=== PATIENT | female | born 1930 | race Caucasian/White ===

== ENCOUNTER 2018-10-31 16:40 | Inpatient (IN) | payer MEDICARE, MEDICAID ==
[~2018-10-31] VITALS: Ht 172.7 cm; Wt 69.9 kg
[2018-10-31 17:19] LABS: BASO % 1 % (0-3); EOS # 0.3 x10^3/uL (0.0-0.7); EOS % 5 % (0-3); HEMATOCRIT 45.9 % (36.0-47.0); HEMOGLOBIN 15.3 g/dL (12.0-15.5); LYMPH # 1.5 x10^3/uL (1.0-4.8); LYMPH % 21 % (24-48); MEAN CORPUSCULAR HEMOGLOBIN 33 pg (25-35); MEAN CORPUSCULAR HGB CONC 33 g/dL (31-37); MEAN CORPUSCULAR VOLUME 100 fL (79-100); MONO # 0.6 x10^3/uL (0.0-1.1); MONO % 8 % (0-9); NEUT # 4.5 x10^3uL (1.8-7.7); NEUT % 65 % (31-73); PLATELET COUNT 181 x10^3/uL (140-400); RED BLOOD COUNT 4.61 x10^6/uL (3.50-5.40); RED CELL DISTRIBUTION WIDTH 14.2 % (11.5-14.5); WHITE BLOOD COUNT 6.9 x10^3/uL (4.0-11.0)
[2018-10-31 17:36] LABS: ALBUMIN 4.2 g/dL (3.4-5.0); ALBUMIN/GLOBULIN RATIO 1.4 (1.0-1.7); CALCIUM 9.3 mg/dL (8.5-10.1); CREATININE 1.2 mg/dL (0.6-1.0); GFR 42.6; POTASSIUM 4.4 mmol/L (3.5-5.1); TOTAL BILIRUBIN 0.9 mg/dL (0.2-1.0); TOTAL PROTEIN 7.3 g/dL (6.4-8.2)
[2018-10-31 17:46] LABS: CLARITY,URINE HAZY; COLOR,URINE AMBER
[2018-10-31 17:47] LABS: BACTERIA,URINE 0 /HPF (0-FEW); BILIRUBIN,URINE NEG (NEG); GLUCOSE,URINE NEG (NEG); NITRITE,URINE NEG (NEG); RBC,URINE 0 /HPF (0-2); SQUAMOUS EPITHELIAL CELL,UR OCC /LPF; UROBILINOGEN,URINE 0.2 mg/dL (0.2 mg/dL); WBC,URINE 0 /HPF (0-4)
--- NOTE | 2018-10-31 18:05 | PHYS DOC ---
Past History Past Medical History: Anxiety, CHF, COPD, CVA, Hypertension, Other Past Surgical History: Other Alcohol Use: None Drug Use: None Adult General Chief Complaint Chief Complaint: PSYCH EVALUATION HPI HPI Patient is a 87 year old female who presents to the emergency department for medical clearance. The patient was brought to the emergency department by an outside assisted facility after being accepted to the [facility] unit. Per protocol, the patient presents here to the emergency department to receive the medical clearance prior to admission. Patient reportedly has had suicidal ideation and frequent outbursts at her current having situation. No reported fever. Does have history of anxiety. Patient does voice suicidal ideation in the emergency department. Denies any chest pain, shortness of breath, no or any other symptoms. Patient has had history of prior CVA and is bedridden. Review of Systems Review of Systems Constitutional: Denies fever or chills [] Eyes: Denies change in visual acuity, redness, or eye pain [] HENT: Denies nasal congestion or sore throat [] Respiratory: Denies cough or shortness of breath [] Cardiovascular: Denies chest pain or edema[] GI: Denies abdominal pain, nausea, vomiting, bloody stools or diarrhea [] : Denies dysuria or hematuria [] Musculoskeletal: Denies back pain or joint pain [] Integument: Denies rash or skin lesions [] Neurologic: Denies headache, focal weakness or sensory changes [] All other systems were reviewed and found to be within normal limits, except as documented in this note. Allergies Allergies Allergies Coded Allergies Type Severity Reaction Last Updated Verified amoxicillin Allergy Unknown 10/31/18 Yes clavulanic acid Allergy Unknown 10/31/18 Yes tetracycline Allergy Unknown 10/31/18 Yes Physical Exam Physical Exam Constitutional: Agitated, afebrile, vital signs stable, appears in chronically poor health. [] HENT: Normocephalic, atraumatic, bilateral external ears normal, oropharynx moist, no oral exudates, nose normal. [] Eyes: PERRLA, EOMI, conjunctiva normal, no discharge. [] Neck: Normal range of motion, no tenderness, supple, no stridor. [] Cardiovascular: Irregular rhythm, no murmur [] Lungs & Thorax: Bilateral breath sounds clear to auscultation [] Abdomen: Bowel sounds normal, soft, no tenderness, no masses, no pulsatile masses. [] Skin: Warm, dry, no erythema, no rash. [] Back: No tenderness, no CVA tenderness. [] Extremities: No tenderness, no cyanosis, no clubbing, ROM intact, no edema. [] Neurologic: Alert and oriented X 3, agitated. [] Current Patient Data Vital Signs Vital Signs Date Time Temp Pulse Resp B/P (MAP) Pulse Ox O2 Delivery O2 Flow Rate FiO2 10/31/18 16:53 97.9 102 18 95 Room Air Lab Results Laboratory Tests Test 10/31/18 17:09 10/31/18 17:23 White Blood Count 6.9 x10^3/uL (4.0-11.0) Red Blood Count 4.61 x10^6/uL (3.50-5.40) Hemoglobin 15.3 g/dL (12.0-15.5) Hematocrit 45.9 % (36.0-47.0) Mean Corpuscular Volume 100 fL (79-100) Mean Corpuscular Hemoglobin 33 pg (25-35) Mean Corpuscular Hemoglobin Concent 33 g/dL (31-37) Red Cell Distribution Width 14.2 % (11.5-14.5) Platelet Count 181 x10^3/uL (140-400) Neutrophils (%) (Auto) 65 % (31-73) Lymphocytes (%) (Auto) 21 % (24-48) L Monocytes (%) (Auto) 8 % (0-9) Eosinophils (%) (Auto) 5 % (0-3) H Basophils (%) (Auto) 1 % (0-3) Neutrophils # (Auto) 4.5 x10^3uL (1.8-7.7) Lymphocytes # (Auto) 1.5 x10^3/uL (1.0-4.8) Monocytes # (Auto) 0.6 x10^3/uL (0.0-1.1) Eosinophils # (Auto) 0.3 x10^3/uL (0.0-0.7) Basophils # (Auto) 0.0 x10^3/uL (0.0-0.2) Sodium Level 141 mmol/L (136-145) Potassium Level 4.4 mmol/L (3.5-5.1) Chloride Level 103 mmol/L (98-107) Carbon Dioxide Level 26 mmol/L (21-32) Anion Gap 12 (6-14) Blood Urea Nitrogen 21 mg/dL (7-20) H Creatinine 1.2 mg/dL (0.6-1.0) H Estimated GFR (Cockcroft-Gault) 42.6 BUN/Creatinine Ratio 18 (6-20) Glucose Level 93 mg/dL (70-99) Calcium Level 9.3 mg/dL (8.5-10.1) Magnesium Level 2.0 mg/dL (1.8-2.4) Total Bilirubin 0.9 mg/dL (0.2-1.0) Aspartate Amino Transferase (AST) 15 U/L (15-37) Alanine Aminotransferase (ALT) 20 U/L (14-59) Alkaline Phosphatase 71 U/L (46-116) Total Protein 7.3 g/dL (6.4-8.2) Albumin 4.2 g/dL (3.4-5.0) Albumin/Globulin Ratio 1.4 (1.0-1.7) Urine Collection Type Unknown Urine Color Kathleen Urine Clarity Hazy Urine pH 5.5 Urine Specific [place] 1.025 Urine Protein Trace (NEG-TRACE) Urine Glucose (UA) Neg mg/dL (NEG) Urine Ketones (Stick) Neg mg/dL (NEG) Urine Blood Neg (NEG) Urine Nitrite Neg (NEG) Urine Bilirubin Neg (NEG) Urine Urobilinogen Dipstick 0.2 mg/dL (0.2 mg/dL) Urine Leukocyte Esterase Neg (NEG) Urine RBC 0 /HPF (0-2) Urine WBC 0 /HPF (0-4) Urine Squamous Epithelial Cells Occ /LPF Urine Bacteria 0 /HPF (0-FEW) EKG EKG Interpreted by me: Heart rate 99, atrial fibrillation, normal axis, no acute ST/T-wave abnormalities present[] Radiology/Procedures Radiology/Procedures Not performed[] Course & Med Decision Making Course & Med Decision Making Pertinent Labs and Imaging studies reviewed. (See chart for details) Vital signs are stable in the emergency department. The patient was found to have atrial fibrillation. This is not documented in previous history. I spoke with Dr. Chandler, hospitalist. He states that the patient can be evaluated and treated while still being admitted at the [facility] unit. He has agreed to follow with patient in consult for evaluation of atrial fibrillation. Patient has no other complaints at this time. Patient will be transferred to the [facility] unit for further care. Dragon Disclaimer Dragon Disclaimer This electronic medical record was generated, in whole or in part, using a voice recognition dictation system. Departure Departure: Impression: Primary Impression: Medical clearance for psychiatric admission Additional Impression: Atrial fibrillation Disposition: ADMITTED INPATIENT Admitting Physician: Other Condition: STABLE Referrals: MAMADOU HENDERSON (PCP) Problem Qualifiers Additional Impression: Atrial fibrillation Atrial fibrillation type: unspecified Qualified Codes: I48.91 - Unspecified atrial fibrillation SULEIMAN ALLEN MD October 31, 2018 18:05
[2018-10-31 18:41] VITALS: BP 137/95
[2018-10-31] MEDS ORDERED: ACETAMINOPHEN 325 MG TABLET PO PRN (19:15)
[2018-10-31] MEDS ORDERED: METHYL SALICYLATE/MENTHOL TOPICAL OINTMENT 29GM TUBE. TP PRN (19:15)
[2018-10-31] MEDS ORDERED: MAG HYDROX/AL HYDROX/SIMETH 30 ML ORAL.SUSP PO PRN (19:15)
[2018-10-31] MEDS ORDERED: MAGNESIUM HYDROXIDE 2,400 MG/30 ML ORAL.SUSP. PO PRN (19:15)
[2018-10-31] MEDS ORDERED: SODI104S NS (20:42)
[2018-10-31] MEDS ORDERED: CHOL500016 PO (20:42)
[2018-10-31] MEDS ORDERED: LORA-254 PO (20:42)
[2018-10-31] MEDS ORDERED: QUET50TA5 PO (20:42)
[2018-10-31] MEDS ORDERED: OMEP20TA8 PO (20:42)
[2018-10-31] MEDS ORDERED: LORA2VIA IM (20:42)
[2018-10-31] MEDS ORDERED: WARF4TAB68 PO (20:42)
[2018-10-31] MEDS ORDERED: GUAI5SYR PO (20:42)
[2018-10-31] MEDS ORDERED: SENN-80 PO (20:42)
[2018-10-31] MEDS ORDERED: NA P133E2 RC (20:42)
[2018-10-31] MEDS ORDERED: DONE10TA61 PO (20:42)
[2018-10-31] MEDS ORDERED: ASPI-612 PO (20:42)
[2018-10-31] MEDS ORDERED: CITA20TA9 PO (20:42)
[2018-10-31] MEDS ORDERED: LEVE100020 PO (20:42)
[2018-10-31] MEDS ORDERED: BUSP5TAB PO (20:42)
[2018-10-31] MEDS ORDERED: MELA3TAB2 PO (20:42)
[2018-10-31] MEDS ORDERED: ALBU2.5V5 NEB (20:42)
[2018-10-31] MEDS ORDERED: QUET100T4 PO (20:42)
[2018-10-31] MEDS ORDERED: NITR0.4T22 SL (20:42)
[2018-10-31] MEDS ORDERED: CARV3.12 PO (20:42)
[2018-10-31] MEDS ORDERED: ZONI100C33 PO (20:42)
[2018-10-31] MEDS ORDERED: SIMV20TA3 PO (20:42)
[2018-10-31] MEDS ORDERED: NITROGLYCERIN SUBLINGUAL 0.4 MG BOTTLE OF 25. SL PRN (20:45)
[2018-10-31] MEDS ORDERED: ALBUTEROL SULFATE 2.5 MG/3 ML NEBU. NEB PRN (20:45)
[2018-10-31] MEDS ORDERED: SODIUM PHOSPHATES 19/7GM 133 ML ENEMA. RC PRN (20:45)
[2018-10-31] MEDS ORDERED: WARFARIN SODIUM 4 MG PO SCH (21:00)
[2018-10-31] MEDS ORDERED: guaiFENesin DM 200MG/20MG 10 ML SYRUP PO PRN (21:15)
[2018-10-31] MEDS: QUEtiapine 50 MG TABLET. PO SCH (21:22)
[2018-10-31] MEDS: LORazepam 1 MG TABLET PO SCH (21:23)
[2018-10-31] MEDS: QUEtiapine 100 MG TABLET. PO SCH (21:23)
[2018-10-31] MEDS ORDERED: SENNOSIDES 8.6 MG TABLET PO PRN (21:30)
[2018-10-31] MEDS ORDERED: SODIUM CHLORIDE 0.65% NASAL SPRAY 45ML BOTTLE. NS PRN (21:30)
--- NOTE | 2018-10-31 22:07 | PDOC ---
Exam Note: Tiburcio Note: Please also refer to the separate dictated note~for this date of service dictated separately. Discussed the patient with Nursing staff reviewed the chart.~Reviewed interim history and current functioning. Reviewed vital signs,~Labs/ Radiology~and current medications noted below. Continue current treatment with the changes noted in the dictated addendum note Assessment: Vital Signs: Vital Signs Date Time Temp Pulse Resp B/P (MAP) Pulse Ox O2 Delivery O2 Flow Rate FiO2 10/31/18 18:41 97.0 92 20 137/95 (109) 97 10/31/18 18:07 Room Air Labs: Laboratory Tests Test 10/31/18 17:09 10/31/18 17:23 White Blood Count 6.9 x10^3/uL (4.0-11.0) Red Blood Count 4.61 x10^6/uL (3.50-5.40) Hemoglobin 15.3 g/dL (12.0-15.5) Hematocrit 45.9 % (36.0-47.0) Mean Corpuscular Volume 100 fL (79-100) Mean Corpuscular Hemoglobin 33 pg (25-35) Mean Corpuscular Hemoglobin Concent 33 g/dL (31-37) Red Cell Distribution Width 14.2 % (11.5-14.5) Platelet Count 181 x10^3/uL (140-400) Neutrophils (%) (Auto) 65 % (31-73) Lymphocytes (%) (Auto) 21 % (24-48) L Monocytes (%) (Auto) 8 % (0-9) Eosinophils (%) (Auto) 5 % (0-3) H Basophils (%) (Auto) 1 % (0-3) Neutrophils # (Auto) 4.5 x10^3uL (1.8-7.7) Lymphocytes # (Auto) 1.5 x10^3/uL (1.0-4.8) Monocytes # (Auto) 0.6 x10^3/uL (0.0-1.1) Eosinophils # (Auto) 0.3 x10^3/uL (0.0-0.7) Basophils # (Auto) 0.0 x10^3/uL (0.0-0.2) Sodium Level 141 mmol/L (136-145) Potassium Level 4.4 mmol/L (3.5-5.1) Chloride Level 103 mmol/L (98-107) Carbon Dioxide Level 26 mmol/L (21-32) Anion Gap 12 (6-14) Blood Urea Nitrogen 21 mg/dL (7-20) H Creatinine 1.2 mg/dL (0.6-1.0) H Estimated GFR (Cockcroft-Gault) 42.6 BUN/Creatinine Ratio 18 (6-20) Glucose Level 93 mg/dL (70-99) Calcium Level 9.3 mg/dL (8.5-10.1) Magnesium Level 2.0 mg/dL (1.8-2.4) Total Bilirubin 0.9 mg/dL (0.2-1.0) Aspartate Amino Transferase (AST) 15 U/L (15-37) Alanine Aminotransferase (ALT) 20 U/L (14-59) Alkaline Phosphatase 71 U/L (46-116) Total Protein 7.3 g/dL (6.4-8.2) Albumin 4.2 g/dL (3.4-5.0) Albumin/Globulin Ratio 1.4 (1.0-1.7) Urine Collection Type Unknown Urine Color Kathleen Urine Clarity Hazy Urine pH 5.5 Urine Specific [place] 1.025 Urine Protein Trace (NEG-TRACE) Urine Glucose (UA) Neg mg/dL (NEG) Urine Ketones (Stick) Neg mg/dL (NEG) Urine Blood Neg (NEG) Urine Nitrite Neg (NEG) Urine Bilirubin Neg (NEG) Urine Urobilinogen Dipstick 0.2 mg/dL (0.2 mg/dL) Urine Leukocyte Esterase Neg (NEG) Urine RBC 0 /HPF (0-2) Urine WBC 0 /HPF (0-4) Urine Squamous Epithelial Cells Occ /LPF Urine Bacteria 0 /HPF (0-FEW) Current Medications: Meds: Current Medications Acetaminophen (Tylenol) 650 mg PRN Q6HRS PRN PO PAIN / TEMP; Start 10/31/18 at 19:15 Multi-Ingredient Ointment (Analgesic [place]) 1 lynsey PRN QID PRN TP MUSCLE PAIN; Start 10/31/18 at 19:15 Al Hydroxide/Mg Hydroxide (Mylanta Plus Xs) 15 ml PRN AFTMEALHC PRN PO DYSPEPSIA; Start 10/31/18 at 19:15 Magnesium Hydroxide (Milk Of Magnesia) 2,400 mg PRN QHS PRN PO CONSTIPATION; Start 10/31/18 at 19:15 Citalopram Hydrobromide (CeleXA) 20 mg DAILY PO ; Start 11/01/18 at 09:00 Lorazepam (Ativan) 1 mg TID PO Last administered on 10/31/18at 21:23; Start 10/31/18 at 21:00 Buspirone HCl (Buspar) 5 mg BID PO ; Start 11/01/18 at 09:00 Donepezil HCl (Aricept) 10 mg DAILY PO ; Start 11/01/18 at 09:00 Melatonin 6 mg QHS PO ; Start 11/01/18 at 21:00 Quetiapine Fumarate (SEROquel) 50 mg QHS PO Last administered on 10/31/18at 21:22; Start 10/31/18 at 21:00 Quetiapine Fumarate (SEROquel) 100 mg QHS PO Last administered on 10/31/18at 21:23; Start 10/31/18 at 21:00 Albuterol Sulfate (Ventolin) 2.5 mg PRN Q6HRS PRN NEB SHORTNESS OF BREATH; Start 10/31/18 at 20:45 Guaifenesin (Robitussin Dm) 10 ml PRN Q4HRS PRN PO COUGH; Start 10/31/18 at 21:15 Sodium Biphosphate/ Sodium Phosphate (Fleet Adult) 133 ml PRN DAILY PRN RC CONSTIPATION; Start 10/31/18 at 20:45 Nitroglycerin (Nitrostat) 0.4 mg PRN Q5MIN PRN SL CHEST PAIN; Start 10/31/18 at 20:45 Aspirin (Aspirin Enteric Coated) 81 mg DAILYWBKFT PO ; Start 11/01/18 at 08:00 Carvedilol (Coreg) 3.125 mg BIDWMEALS PO ; Start 11/01/18 at 08:00 Vitamin D (Vitamin D3) 5,000 unit DAILY PO ; Start 11/01/18 at 09:00 Levetiracetam (Keppra) 1,000 mg BID PO ; Start 11/01/18 at 09:00 Pantoprazole Sodium (Protonix) 40 mg DAILYAC PO ; Start 11/01/18 at 07:30 Sennosides (Senna) 8.6 mg PRN BID PRN PO CONSTIPATION; Start 10/31/18 at 21:30 Simvastatin (Zocor) 20 mg DAILY PO ; Start 11/01/18 at 09:00 Sodium Chloride (Saline Mist Nasal) 1 lynsey PRN Q6HRS PRN NS NASAL CONGESTION; Start 10/31/18 at 21:30 Non-Formulary Medication (Warfarin Sodium (Coumadin)) 4 mg HS PO ; Start 10/31/18 at 21:00; Status UNV Zonisamide (Zonegran) 100 mg DAILY PO ; Start 11/01/18 at 09:00 Active Scripts Active Reported Zonegran (Zonisamide) 100 Mg Capsule 100 Mg PO DAILY Vitamin D3 (Cholecalciferol (Vitamin D3)) 5,000 Unit Tablet 5,000 Unit PO DAILY Simvastatin 20 Mg Tablet 20 Mg PO DAILY Seroquel (Quetiapine Fumarate) 50 Mg Tablet 50 Mg PO QHS Seroquel (Quetiapine Fumarate) 100 Mg Tablet 100 Mg PO QHS Senna (Sennosides) 8.6 Mg Tablet 8.6 Mg PO PRN Q12HR PRN Omeprazole 20 Mg Tablet.dr 20 Mg PO DAILY [place] (Sodium Chloride) 104 Ml [place] 2 Sprays NS PRN Q6HRS PRN NITROGLYCERIN SubLingual (Nitroglycerin) 0.4 Mg Tab.subl 0.4 Mg SL PRN Q5MIN PRN Melatonin 3 Mg Tablet 6 Mg PO QHS Ativan (Lorazepam) 1 Mg Tablet 1 Mg PO TID Keppra (Levetiracetam) 1,000 Mg Tablet 1,000 Mg PO BID Guaifenesin Dm Syrup (Guaifenesin/Dextromethorphan) 5 Ml Syrup 10 Ml PO PRN Q4HRS PRN Fleet Enema (Na Phos,M-B/Na Phos,Di-Ba) 133 Ml Enema 133 Ml RC PRN DAILY PRN Coumadin (Warfarin Sodium) 4 Mg Tablet 4 Mg PO HS Coreg (Carvedilol) 3.125 Mg Tablet 3.125 Mg PO BIDWMEALS Celexa (Citalopram Hydrobromide) 20 Mg Tablet 20 Mg PO DAILY Buspirone Hcl 5 Mg Tablet 5 Mg PO BID Lorazepam 2 Mg/1 Ml Vial 0.5 Ml IM DAILY Aspirin Ec (Aspirin) 81 Mg Tablet.dr 81 Mg PO DAILY Albuterol Sulfate Neb Soln (Albuterol Sulfate) 2.5 Mg/3 Ml Vial.neb 2.5 Mg NEB PRN Q6HRS PRN Aricept (Donepezil Hcl) 10 Mg Tablet 10 Mg PO DAILY I have reviewed the current psychotropics carefully including drug interactions. Risk benefit ratio favors no change other than as noted in my dictated progress note. 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
[2018-11-01 05:51] VITALS: BP 107/70
[2018-11-01] MEDS: levETIRAcetam 500 MG TABLET PO SCH ×3 (10:07→21:36)
[2018-11-01] MEDS: CHOLECALCIFEROL (VITAMIN D3) 1,000 UNIT TABLET PO SCH (10:07)
[2018-11-01] MEDS: SIMVASTATIN 20 MG TABLET PO SCH (10:07)
[2018-11-01] MEDS: DONEPEZIL HCL 10 MG TABLET PO SCH (10:07)
[2018-11-01] MEDS: LORazepam 1 MG TABLET PO SCH ×2 (10:08→14:20)
[2018-11-01] MEDS: busPIRone 5 MG TABLET. PO SCH ×3 (10:08→21:36)
[2018-11-01] MEDS: ASPIRIN ENTERIC COATED 81 MG TABLET.DR. PO SCH (10:08)
[2018-11-01] MEDS: PANTOPRAZOLE 40 MG TABLET. PO SCH (10:08)
[2018-11-01] MEDS: CITALOPRAM 20 MG TABLET. PO SCH (10:08)
[2018-11-01] MEDS: ZONISAMIDE 100 MG CAPSULE. PO SCH (10:08)
[2018-11-01] MEDS: CARVEDILOL 3.125 MG TABLET PO SCH ×2 (10:09→17:05)
[2018-11-01] MEDS ORDERED: PRED-220 PO (13:20)
[2018-11-01 15:40] VITALS: BP 133/75
[2018-11-01] MEDS ORDERED: WARFARIN 4 MG TABLET. PO SCH (16:00)
--- NOTE | 2018-11-01 16:53 | HP ---
ADMIT DATE: 10/31/2018 PSYCHIATRIC ADMISSION HISTORY/EVALULTION This late entry 10/31/2018 covers elements not covered in my initial note 10/31/2018. SUBJECTIVE: I met with the patient in the evening of 10/31/2018 shortly after she arrived on the unit. Previously discussed with Aisha Castañeda, nursing program coordinator and nursing staff. IDENTIFYING DATA: The patient is an 87-year-old female, referred to us from [facility] in [place], [place] by Dr. Aguilera, her primary care physician on account of worsening confusion and agitation. She was reportedly delusional about her cheating on her. She is agitated with her and daughters. She is trying to pack and move out. She is refusing all her medications. Several changes in her psychotropics had not made any difference. She was yelling, cursing, agitated, impulsive with active suicidal ideation and threatening to harm herself and extremely emotional. CHIEF COMPLAINT: "I don't know." The patient responded after my initial introductions and as I was asking her orientation questions and questioned her about who the current president was. HISTORY OF PRESENT ILLNESS: The patient has a history of dementia, Alzheimer's vascular type. She has been residing at the above facility for some time, but recently getting increasingly agitated, psychotic, paranoid, impulsive and explosive with suicidal ideation. She has had sleep and appetite changes. No clear history of bipolar disorder or homicidal ideation. PAST PSYCHIATRIC HISTORY: As above. MEDICAL HISTORY: Positive for generalized weakness, hypertension, tremors, repeated falls, COPD, history of syncope, vitamin D deficiency, CHF, status post CVA with hemiplegia, anxiety. ALLERGIES: AUGMENTIN, TETRACYCLINE. ACCU-CHEKS: None. DIET: Regular. Takes medications whole. Ambulates in wheelchair. CODE STATUS: DNR. UA 10/31/2018 was negative. CURRENT PSYCHOTROPICS: Aricept 10 mg a day, BuSpar 5 mg b.i.d., Celexa 20 mg a day, Ativan 1 mg t.i.d., melatonin 6 mg at bedtime, Seroquel 150 mg at bedtime. FAMILY HISTORY: Noncontributory. SOCIAL HISTORY: No history of alcohol, drug abuse, physical, sexual or elder abuse. She is not known to be a perpetrator. MENTAL STATUS EXAMINATION: Oriented to herself. She was lying in bed, Room as I met with her. When I questioned her about her name, she stated "I don't know that. Later, she told me she had arrived on the unit shortly before my visit with her. Speech coherent, rapid at times. Insight, judgment, recent and remote memory, attention, concentration, fund of knowledge poor, consistent with her diagnosis. She is quite paranoid, psychotic, impulsive with marked mood lability. ASSETS: Supportive family, stable living at the residential. WEAKNESS: The patient's dementia, delusion, depression, and agitation. IMPRESSION: Major neurocognitive disorder, Alzheimer, vascular with delusion, depression, behavioral disturbance; anxiety disorder, unspecified; impulse control disorder, unspecified. Rest as above. PLAN: Admit to geropsychiatry unit at [facility]. I will see the patient daily individually from a psychiatric standpoint. Medical followup with Dr. Chandler. Continue the patient on her current psychotropics. Consider tapering the Ativan and adjusting the Seroquel post baseline assessment. ESTIMATED LENGTH OF STAY: 10-12 days. DISPOSITION: Plans back to residential when stable. MAN Stephanie PYLE MD DR: JASMYN/krissy JOB#: [id number] / [id number]
[2018-11-01 19:47] VITALS: BP 128/93
[2018-11-01] MEDS: QUEtiapine 50 MG TABLET. PO SCH ×2 (21:00→21:36)
[2018-11-01] MEDS: MELATONIN 3 MG TABLET PO SCH ×2 (21:00→21:39)
[2018-11-01] MEDS: QUEtiapine 100 MG TABLET. PO SCH ×2 (21:00→21:36)
[2018-11-01] MEDS: LORazepam 0.5 MG TABLET PO SCH (21:39)
--- NOTE | 2018-11-01 22:33 | PDOC ---
Exam Note: Tiburcio Note: Please also refer to the separate dictated note~for this date of service dictated separately.~Patient seen individually. Discussed the patient with Nursing staff reviewed the chart.~Reviewed interim history and current functioning. Reviewed vital signs,~Labs/ Radiology~and current medications noted below. Continue current treatment with the changes noted in the dictated addendum note Assessment: Vital Signs: Vital Signs Date Time Temp Pulse Resp B/P (MAP) Pulse Ox O2 Delivery O2 Flow Rate FiO2 11/01/18 19:47 99.2 93 20 128/93 (105) 96 10/31/18 18:07 Room Air I&O Intake and Output 11/01/18 06:59 Intake Total 60 ml Balance 60 ml Intake Oral 60 ml # Voids 1 Labs: Laboratory Tests Test 11/01/18 13:27 Prothrombin Time 16.0 SEC (9.4-11.4) H Prothrombin Time INR 1.6 (0.9-1.1) H Current Medications: Meds: Current Medications Acetaminophen (Tylenol) 650 mg PRN Q6HRS PRN PO PAIN / TEMP; Start 10/31/18 at 19:15 Multi-Ingredient Ointment (Analgesic [place]) 1 lynsey PRN QID PRN TP MUSCLE PAIN; Start 10/31/18 at 19:15 Al Hydroxide/Mg Hydroxide (Mylanta Plus Xs) 15 ml PRN AFTMEALHC PRN PO DYSPEPSIA; Start 10/31/18 at 19:15 Magnesium Hydroxide (Milk Of Magnesia) 2,400 mg PRN QHS PRN PO CONSTIPATION; Start 10/31/18 at 19:15 Citalopram Hydrobromide (CeleXA) 20 mg DAILY PO Last administered on 11/01/18at 10:08; Start 11/01/18 at 09:00 Lorazepam (Ativan) 1 mg TID PO Last administered on 11/01/18at 10:08; Start 10/31/18 at 21:00; Stop 11/01/18 at 14:25; Status DC Buspirone HCl (Buspar) 5 mg BID PO Last administered on 11/01/18at 10:08; Start 11/01/18 at 09:00 Donepezil HCl (Aricept) 10 mg DAILY PO Last administered on 11/01/18at 10:07; Start 11/01/18 at 09:00 Melatonin 6 mg QHS PO ; Start 11/01/18 at 21:00 Quetiapine Fumarate (SEROquel) 50 mg QHS PO Last administered on 10/31/18at 21:22; Start 10/31/18 at 21:00 Quetiapine Fumarate (SEROquel) 100 mg QHS PO Last administered on 10/31/18at 21:23; Start 10/31/18 at 21:00 Albuterol Sulfate (Ventolin) 2.5 mg PRN Q6HRS PRN NEB SHORTNESS OF BREATH; Start 10/31/18 at 20:45 Guaifenesin (Robitussin Dm) 10 ml PRN Q4HRS PRN PO COUGH; Start 10/31/18 at 21:15 Sodium Biphosphate/ Sodium Phosphate (Fleet Adult) 133 ml PRN DAILY PRN RC CONSTIPATION; Start 10/31/18 at 20:45 Nitroglycerin (Nitrostat) 0.4 mg PRN Q5MIN PRN SL CHEST PAIN; Start 10/31/18 at 20:45 Aspirin (Aspirin Enteric Coated) 81 mg DAILYWBKFT PO Last administered on 11/01/18at 10:08; Start 11/01/18 at 08:00 Carvedilol (Coreg) 3.125 mg BIDWMEALS PO Last administered on 11/01/18 17:05; Start 11/01/18 at 08:00 Vitamin D (Vitamin D3) 5,000 unit DAILY PO Last administered on 11/01/18 10:07; Start 11/01/18 at 09:00 Levetiracetam (Keppra) 1,000 mg BID PO Last administered on 11/01/18 10:07; Start 11/01/18 at 09:00 Pantoprazole Sodium (Protonix) 40 mg DAILYAC PO Last administered on 11/01/18 10:08; Start 11/01/18 at 07:30 Sennosides (Senna) 8.6 mg PRN BID PRN PO CONSTIPATION; Start 10/31/18 at 21:30 Simvastatin (Zocor) 20 mg DAILY PO Last administered on 11/01/18at 10:07; Start 11/01/18 at 09:00 Sodium Chloride (Saline Mist Nasal) 1 lynsey PRN Q6HRS PRN NS NASAL CONGESTION; Start 10/31/18 at 21:30 Non-Formulary Medication (Warfarin Sodium (Coumadin)) 4 mg HS PO ; Start 10/31/18 at 21:00; Stop 11/01/18 at 14:25; Status DC Zonisamide (Zonegran) 100 mg DAILY PO Last administered on 11/01/18at 10:08; Start 11/01/18 at 09:00 Warfarin Sodium (Coumadin Per Physician) 1 each PRN DAILY PRN MC SEE COMMENTS; Start 11/01/18 at 07:15 Olanzapine (ZyPREXA ZYDIS) 2.5 mg PRN Q2HR PRN PO PSYCHOSIS; Start 11/01/18 at 12:00 Lorazepam (Ativan) 1 mg Taper DAILY PO ; Start 11/02/18 at 09:00; Stop 11/22/18 at 08:59 Lorazepam (Ativan) 1 mg Taper DAILY@1400 PO ; Start 11/02/18 at 14:00; Stop 11/22/18 at 13:59 Lorazepam (Ativan) 1 mg Taper QHS PO Last administered on 11/01/18at 21:39; Start 11/01/18 at 21:00; Stop 11/22/18 at 20:59 Warfarin Sodium (Coumadin) 4 mg DAILY@1600 PO Last administered on 11/01/18at 17:04; Start 11/01/18 at 16:00 Lorazepam (Ativan) 0.5 mg TID PO ; Start 11/22/18 at 09:00 Active Scripts Active Reported Prednisone 10 Mg Tablet 10 Mg PO QSA Take 3 tablets by mouth twice a day for 3 days, then take 2 tablets by mouth twice a day for 3 days, then take 1 tablet by mouth twice a day for 3 days, then take 1 tablet by mouth daily x 3 days, then stop. Zonegran (Zonisamide) 100 Mg Capsule 100 Mg PO DAILY Vitamin D3 (Cholecalciferol (Vitamin D3)) 5,000 Unit Tablet 5,000 Unit PO DAILY Simvastatin 20 Mg Tablet 20 Mg PO DAILY Seroquel (Quetiapine Fumarate) 50 Mg Tablet 50 Mg PO QHS Seroquel (Quetiapine Fumarate) 100 Mg Tablet 100 Mg PO QHS Senna (Sennosides) 8.6 Mg Tablet 8.6 Mg PO PRN Q12HR PRN Omeprazole 20 Mg Tablet.dr 20 Mg PO DAILY [place] (Sodium Chloride) 104 Ml [place] 2 Sprays NS PRN Q6HRS PRN NITROGLYCERIN SubLingual (Nitroglycerin) 0.4 Mg Tab.subl 0.4 Mg SL PRN Q5MIN PRN Melatonin 3 Mg Tablet 6 Mg PO QHS Ativan (Lorazepam) 1 Mg Tablet 1 Mg PO TID Keppra (Levetiracetam) 1,000 Mg Tablet 1,000 Mg PO BID Guaifenesin Dm Syrup (Guaifenesin/Dextromethorphan) 5 Ml Syrup 10 Ml PO PRN Q4HRS PRN Fleet Enema (Na Phos,M-B/Na Phos,Di-Ba) 133 Ml Enema 133 Ml RC PRN DAILY PRN Coumadin (Warfarin Sodium) 4 Mg Tablet 4 Mg PO HS Coreg (Carvedilol) 3.125 Mg Tablet 3.125 Mg PO BIDWMEALS Celexa (Citalopram Hydrobromide) 20 Mg Tablet 20 Mg PO DAILY Buspirone Hcl 5 Mg Tablet 5 Mg PO BID Lorazepam 2 Mg/1 Ml Vial 0.5 Ml IM DAILY Aspirin Ec (Aspirin) 81 Mg Tablet.dr 81 Mg PO DAILY Albuterol Sulfate Neb Soln (Albuterol Sulfate) 2.5 Mg/3 Ml Vial.neb 2.5 Mg NEB PRN Q6HRS PRN Aricept (Donepezil Hcl) 10 Mg Tablet 10 Mg PO DAILY I have reviewed the current psychotropics carefully including drug interactions. Risk benefit ratio favors no change other than as noted in my dictated progress note. 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
--- NOTE | 2018-11-02 05:23 | CONS ---
DATE OF CONSULTATION: 11/01/2018 REASON FOR CONSULTATION: Medical management. HISTORY OF PRESENT ILLNESS: The patient is an 87-year-old female patient, a resident at [facility] in [place], [place], who was admitted to this unit on account of worsening confusion, agitation. She was reportedly delusional about her cheating on her. She is agitated with her and daughters. She is trying to back and move out. She is refusing all her medications. Apparently multiple changes in her psychotropic medication were made without making any difference. She was yelling, cursing, agitated, impulsive with active suicidal ideation and threatening to harm herself and extremely emotional, all this in a background of dementia, Alzheimer, vascular type. She was admitted to this unit for inpatient psychiatric stabilization. PAST PSYCHIATRIC HISTORY: Significant for dementia, Alzheimer, vascular type. Has been residing at this facility for some time, but has recently been getting increasingly agitated and psychotic, paranoid, impulsive and explosive with suicidal ideation. PAST MEDICAL HISTORY: Significant for hypertension, tremors, repeated falls, COPD, vitamin D deficiency, congestive heart failure, status post CVA with hemiplegia, anxiety. PAST SURGICAL HISTORY: Unremarkable. ALLERGIES: She is allergic to AUGMENTIN AND TETRACYCLINE. FAMILY HISTORY: Noncontributory. SOCIAL HISTORY: She apparently lives at [facility], together with her . She does not smoke, drink alcohol, or use any recreational drugs. MEDICATIONS: She is currently on following medications: She is on Aricept 10 mg daily, albuterol sulfate 2.5 mg 3 mL vial by nebulizer every 6 hours. She is on Coumadin 4 mg at bedtime, simvastatin 20 mg at bedtime, nitroglycerin 0.4 mg sublingual every 5 minutes x 3. She is on carvedilol 3.125 mg twice a day with meals, aspirin 81 mg once a day, Keppra 1000 mg twice a day, Zonegran 100 mg daily. She is on citalopram hydrobromide, Celexa 20 mg daily, quetiapine fumarate 100 mg at bedtime and Seroquel 50 mg at bedtime. She is on lorazepam 2 mg 1 mL vial intramuscular daily, lorazepam 1 mg tablet 3 times a day, buspirone 5 mg twice a day, guaifenesin dextromethorphan 10 mL every 4 hours as needed, [place] spray 2 sprays to each nostril every 6 hours, Fleet enema rectally p.r.n. daily for constipation. She has senna 1 tablet every 12 hours, omeprazole 20 mg daily, cholecalciferol, prednisone 10 mg daily, ergocalciferol 5000 international units once a day, and melatonin 6 mg at bedtime for insomnia. REVIEW OF SYSTEMS: Unobtainable. PHYSICAL EXAMINATION: GENERAL: When I examined her, she looked pale, but no jaundice, cyanosis, or thyromegaly. No jugular venous distension. No lower limb edema. VITAL SIGNS: Her heart rate was 110, blood pressure 133/75, temperature was 98, respiratory rate was 18, and oxygen saturation was 95%. HEAD, EYES, EARS, NOSE, AND THROAT: Showed normocephalic, atraumatic. NECK: Supple. HEART: Showed normal first and second heart sounds. No gallop, rub or murmur. CHEST: Clear to auscultation. No crepitation or rhonchi. ABDOMEN: Distended, soft, nontender. NEUROLOGIC: She is demented, but without any obvious lateralizing sign. All her cranial nerves intact. She moves upper extremities to much good extent than lower extremities. She is mostly bed bound, wheelchair bound. LABORATORY DATA: Showed a white cell count of 6900, hemoglobin 15, hematocrit 45, MCV 100, and platelet count of 181,000. Her chemistry showed a serum sodium of 141, potassium 4.4, chloride 103, bicarbonate 26, anion gap of 12, BUN 21, creatinine 1.2, estimated GFR was 42 mL per minute. Her glucose was 93, calcium was 9.3, magnesium 2. Serum iron, TIBC and iron saturation of all in the lower side. Her total bilirubin, AST, ALT, alkaline phosphatase were normal. Total protein was 7.3, albumin was 4.2. Her prothrombin time was 16, INR of 1.6. Urinalysis showed the urine was hazy with a pH of 5.5, specific gravity of 1.025. There was trace of protein. The urine was negative for glucose, ketones, blood, nitrites and leukocyte esterase. There are no rbc's, no wbc's, and no bacteria. IMPRESSION: In summary, this is an 87-year-old female patient, who was admitted on account of being worsening confusion, agitation. She was reportedly delusional about her cheating on her and she is agitated with her and daughters. She is trying to back and move out, all this in a background of dementia of Alzheimer type. Medically, she has multiple medical problems including hypertension, COPD, history of CVA, congestive heart failure, vitamin D deficiency, and is not very clear to me why she is on Coumadin; however, medically she seemed to be all in all stable. She has obviously episodes of gary- and tachycardia, which may be pointing out to sick sinus syndrome. Her heart rate was down to 51 and goes up to 110. All her lab works are well within acceptable range given her age. I would continue all these, although given her history of repeated falls, we might have to consider discontinuing her Coumadin. Thank you, Dr. Jackman, for allowing me to participate in the care of this patient. JANIS BABIN MD DR: SHERITA/krissy JOB#: [id number] / [id number]
--- NOTE | 2018-11-02 05:32 | PN ---
DATE: 11/01/2018 This note covers elements not covered in my initial note of 11/01/2018. SUBJECTIVE: The patient was seen individually in the morning of 11/01/2018, staffed at a treatment team meeting with the entire team morning of 11/01/2018. The patient slept 7 hours previous night. She was quite combative, agitated, psychotic, paranoid and confused previous evening. She has been agitated, impulsive, quite psychotic. REVIEW OF SYSTEMS: No CV, , pulmonary, eye, ENT system symptoms on review. Reliability poor. Ambulation impaired, in wheelchair. MENTAL STATUS EXAM: Oriented to herself. Insight, judgment, recent and remote memory, attention, concentration, fund of knowledge poor, consistent with her diagnoses. IMPRESSION: Major neurocognitive disorder, Alzheimer, vascular with delusion, depression, behavioral disturbance; anxiety disorder, unspecified; impulse control disorder, unspecified. Rest unchanged. PLAN: During the treatment team meeting, we reviewed her history at length and circumstances prompting admission. She is on rather high dosages of Ativan 1 mg t.i.d., we will reduce by 0.25 mg a day every 3 days till she reaches 1.5 mg in a 24-hour period. Continue rest of the psychotropics unchanged for now. EMILY PYLE MD DR: JASMYN/krissy JOB#: [id number] / [id number]
[2018-11-02 06:03] VITALS: BP 117/79
[2018-11-02] MEDS: CHOLECALCIFEROL (VITAMIN D3) 1,000 UNIT TABLET PO SCH (09:00)
[2018-11-02] MEDS: levETIRAcetam 500 MG TABLET PO SCH ×2 (11:20→20:03)
[2018-11-02] MEDS: busPIRone 5 MG TABLET. PO SCH ×2 (11:20→20:03)
[2018-11-02] MEDS: CARVEDILOL 3.125 MG TABLET PO SCH ×2 (11:20→17:20)
[2018-11-02] MEDS: DONEPEZIL HCL 10 MG TABLET PO SCH (11:21)
[2018-11-02] MEDS: CITALOPRAM 20 MG TABLET. PO SCH (11:21)
[2018-11-02] MEDS: PANTOPRAZOLE 40 MG TABLET. PO SCH (11:21)
[2018-11-02] MEDS: ASPIRIN ENTERIC COATED 81 MG TABLET.DR. PO SCH (11:21)
[2018-11-02] MEDS: SIMVASTATIN 20 MG TABLET PO SCH (11:21)
[2018-11-02] MEDS: LORazepam 0.5 MG TABLET PO SCH ×3 (11:23→20:02)
[2018-11-02] MEDS: ZONISAMIDE 100 MG CAPSULE. PO SCH (11:28)
[2018-11-02 16:03] VITALS: BP 139/82
[2018-11-02 16:07] LABS: HEMOGLOBIN A1C 5.4 % (4.8-5.6)
[2018-11-02] MEDS: QUEtiapine 100 MG TABLET. PO SCH (20:02)
[2018-11-02] MEDS: MELATONIN 3 MG TABLET PO SCH (20:02)
[2018-11-02] MEDS: QUEtiapine 50 MG TABLET. PO SCH (20:03)
[2018-11-02 20:52] LABS: THYROID STIM HORMONE (TSH) 1.183 uIU/mL (0.358-3.740)
--- NOTE | 2018-11-02 22:40 | PDOC ---
Exam Note: Tiburcio Note: Please also refer to the separate dictated note~for this date of service dictated separately.~Patient seen individually. Discussed the patient with Nursing staff reviewed the chart.~Reviewed interim history and current functioning. Reviewed vital signs,~Labs/ Radiology~and current medications noted below. Continue current treatment with the changes noted in the dictated addendum note Assessment: Vital Signs: Vital Signs Date Time Temp Pulse Resp B/P (MAP) Pulse Ox O2 Delivery O2 Flow Rate FiO2 11/02/18 17:20 84 139/82 11/02/18 16:03 98.5 18 97 10/31/18 18:07 Room Air I&O Intake and Output 11/02/18 06:59 Intake Total 240 ml Balance 240 ml Intake Oral 240 ml # Voids 1 Current Medications: Meds: Current Medications Acetaminophen (Tylenol) 650 mg PRN Q6HRS PRN PO PAIN / TEMP; Start 10/31/18 at 19:15 Multi-Ingredient Ointment (Analgesic [place]) 1 lynsey PRN QID PRN TP MUSCLE PAIN; Start 10/31/18 at 19:15 Al Hydroxide/Mg Hydroxide (Mylanta Plus Xs) 15 ml PRN AFTMEALHC PRN PO DYSPEPSIA; Start 10/31/18 at 19:15 Magnesium Hydroxide (Milk Of Magnesia) 2,400 mg PRN QHS PRN PO CONSTIPATION; Start 10/31/18 at 19:15 Citalopram Hydrobromide (CeleXA) 20 mg DAILY PO Last administered on 11/02/18at 11:21; Start 11/01/18 at 09:00 Lorazepam (Ativan) 1 mg TID PO Last administered on 11/01/18at 10:08; Start 10/31/18 at 21:00; Stop 11/01/18 at 14:25; Status DC Buspirone HCl (Buspar) 5 mg BID PO Last administered on 11/02/18at 20:03; Start 11/01/18 at 09:00 Donepezil HCl (Aricept) 10 mg DAILY PO Last administered on 11/02/18 11:21; Start 11/01/18 at 09:00 Melatonin 6 mg QHS PO Last administered on 11/02/18at 20:02; Start 11/01/18 at 21:00 Quetiapine Fumarate (SEROquel) 50 mg QHS PO Last administered on 11/02/18 20:03; Start 10/31/18 at 21:00 Quetiapine Fumarate (SEROquel) 100 mg QHS PO Last administered on 11/02/18 20:02; Start 10/31/18 at 21:00 Albuterol Sulfate (Ventolin) 2.5 mg PRN Q6HRS PRN NEB SHORTNESS OF BREATH; Start 10/31/18 at 20:45 Guaifenesin (Robitussin Dm) 10 ml PRN Q4HRS PRN PO COUGH; Start 10/31/18 at 21:15 Sodium Biphosphate/ Sodium Phosphate (Fleet Adult) 133 ml PRN DAILY PRN RC CONSTIPATION; Start 10/31/18 at 20:45 Nitroglycerin (Nitrostat) 0.4 mg PRN Q5MIN PRN SL CHEST PAIN; Start 10/31/18 at 20:45 Aspirin (Aspirin Enteric Coated) 81 mg DAILYWBKFT PO Last administered on 11/02/18 11:21; Start 11/01/18 at 08:00 Carvedilol (Coreg) 3.125 mg BIDWMEALS PO Last administered on 11/02/18 17:20; Start 11/01/18 at 08:00 Vitamin D (Vitamin D3) 5,000 unit DAILY PO Last administered on 11/01/18 10:07; Start 11/01/18 at 09:00 Levetiracetam (Keppra) 1,000 mg BID PO Last administered on 11/02/18 20:03; Start 11/01/18 at 09:00 Pantoprazole Sodium (Protonix) 40 mg DAILYAC PO Last administered on 11/02/18 11:21; Start 11/01/18 at 07:30 Sennosides (Senna) 8.6 mg PRN BID PRN PO CONSTIPATION; Start 10/31/18 at 21:30 Simvastatin (Zocor) 20 mg DAILY PO Last administered on 11/02/18 11:21; Start 11/01/18 at 09:00 Sodium Chloride (Saline Mist Nasal) 1 lynsey PRN Q6HRS PRN NS NASAL CONGESTION; Start 10/31/18 at 21:30 Non-Formulary Medication (Warfarin Sodium (Coumadin)) 4 mg HS PO ; Start 10/31/18 at 21:00; Stop 11/01/18 at 14:25; Status DC Zonisamide (Zonegran) 100 mg DAILY PO Last administered on 11/02/18at 11:28; Start 11/01/18 at 09:00 Warfarin Sodium (Coumadin Per Physician) 1 each PRN DAILY PRN MC SEE COMMENTS; Start 11/01/18 at 07:15; Stop 11/02/18 at 15:25; Status DC Olanzapine (ZyPREXA ZYDIS) 2.5 mg PRN Q2HR PRN PO PSYCHOSIS; Start 11/01/18 at 12:00 Lorazepam (Ativan) 1 mg Taper DAILY PO Last administered on 11/02/18at 11:23; Start 11/02/18 at 09:00; Stop 11/22/18 at 08:59 Lorazepam (Ativan) 1 mg Taper DAILY@1400 PO ; Start 11/02/18 at 14:00; Stop 11/22/18 at 13:59 Lorazepam (Ativan) 1 mg Taper QHS PO Last administered on 11/02/18at 20:02; Start 11/01/18 at 21:00; Stop 11/22/18 at 20:59 Warfarin Sodium (Coumadin) 4 mg DAILY@1600 PO Last administered on 11/01/18at 17:04; Start 11/01/18 at 16:00; Stop 11/02/18 at 15:25; Status DC Lorazepam (Ativan) 0.5 mg TID PO ; Start 11/22/18 at 09:00 Active Scripts Active Reported Prednisone 10 Mg Tablet 10 Mg PO QSA Take 3 tablets by mouth twice a day for 3 days, then take 2 tablets by mouth twice a day for 3 days, then take 1 tablet by mouth twice a day for 3 days, then take 1 tablet by mouth daily x 3 days, then stop. Zonegran (Zonisamide) 100 Mg Capsule 100 Mg PO DAILY Vitamin D3 (Cholecalciferol (Vitamin D3)) 5,000 Unit Tablet 5,000 Unit PO DAILY Simvastatin 20 Mg Tablet 20 Mg PO DAILY Seroquel (Quetiapine Fumarate) 50 Mg Tablet 50 Mg PO QHS Seroquel (Quetiapine Fumarate) 100 Mg Tablet 100 Mg PO QHS Senna (Sennosides) 8.6 Mg Tablet 8.6 Mg PO PRN Q12HR PRN Omeprazole 20 Mg Tablet.dr 20 Mg PO DAILY [place] (Sodium Chloride) 104 Ml [place] 2 Sprays NS PRN Q6HRS PRN NITROGLYCERIN SubLingual (Nitroglycerin) 0.4 Mg Tab.subl 0.4 Mg SL PRN Q5MIN PRN Melatonin 3 Mg Tablet 6 Mg PO QHS Ativan (Lorazepam) 1 Mg Tablet 1 Mg PO TID Keppra (Levetiracetam) 1,000 Mg Tablet 1,000 Mg PO BID Guaifenesin Dm Syrup (Guaifenesin/Dextromethorphan) 5 Ml Syrup 10 Ml PO PRN Q4HRS PRN Fleet Enema (Na Phos,M-B/Na Phos,Di-Ba) 133 Ml Enema 133 Ml RC PRN DAILY PRN Coumadin (Warfarin Sodium) 4 Mg Tablet 4 Mg PO HS Coreg (Carvedilol) 3.125 Mg Tablet 3.125 Mg PO BIDWMEALS Celexa (Citalopram Hydrobromide) 20 Mg Tablet 20 Mg PO DAILY Buspirone Hcl 5 Mg Tablet 5 Mg PO BID Lorazepam 2 Mg/1 Ml Vial 0.5 Ml IM DAILY Aspirin Ec (Aspirin) 81 Mg Tablet.dr 81 Mg PO DAILY Albuterol Sulfate Neb Soln (Albuterol Sulfate) 2.5 Mg/3 Ml Vial.neb 2.5 Mg NEB PRN Q6HRS PRN Aricept (Donepezil Hcl) 10 Mg Tablet 10 Mg PO DAILY I have reviewed the current psychotropics carefully including drug interactions. Risk benefit ratio favors no change other than as noted in my dictated progress note. Diagnosis: Problems: (1) Anxiety disorder (2) Dementia, vascular, with depression (3) Dementia, vascular, with delusions (4) Dementia in Alzheimer's disease with delusions (5) Dementia in Alzheimer's disease with depression (6) Impulse control disorder EMILY PYLE MD November 02, 2018 22:40
[2018-11-03 05:28] VITALS: BP 95/66
[2018-11-03] MEDS: PANTOPRAZOLE 40 MG TABLET. PO SCH (08:10)
[2018-11-03] MEDS: ASPIRIN ENTERIC COATED 81 MG TABLET.DR. PO SCH (08:10)
[2018-11-03] MEDS: DONEPEZIL HCL 10 MG TABLET PO SCH (08:14)
[2018-11-03] MEDS: busPIRone 5 MG TABLET. PO SCH ×2 (08:14→20:22)
[2018-11-03] MEDS: CITALOPRAM 20 MG TABLET. PO SCH (08:14)
[2018-11-03] MEDS: levETIRAcetam 500 MG TABLET PO SCH ×2 (08:14→20:23)
[2018-11-03] MEDS: SIMVASTATIN 20 MG TABLET PO SCH (08:15)
[2018-11-03] MEDS: CHOLECALCIFEROL (VITAMIN D3) 1,000 UNIT TABLET PO SCH (08:15)
[2018-11-03] MEDS: LORazepam 0.5 MG TABLET PO SCH ×3 (08:18→20:29)
[2018-11-03 08:26] VITALS: BP 122/82
[2018-11-03] MEDS: CARVEDILOL 3.125 MG TABLET PO SCH ×2 (08:28→17:02)
[2018-11-03] MEDS: ZONISAMIDE 100 MG CAPSULE. PO SCH (11:03)
[2018-11-03 15:41] VITALS: BP 131/69
[2018-11-03] MEDS: QUEtiapine 100 MG TABLET. PO SCH (20:22)
[2018-11-03] MEDS: MELATONIN 3 MG TABLET PO SCH (20:29)
[2018-11-03] MEDS: QUEtiapine 50 MG TABLET. PO SCH (20:29)
--- NOTE | 2018-11-03 22:37 | PDOC ---
Exam Note: Tiburcio Note: Please also refer to the separate dictated note~for this date of service dictated separately.~Patient seen individually. Discussed the patient with Nursing staff reviewed the chart.~Reviewed interim history and current functioning. Reviewed vital signs,~Labs/ Radiology~and current medications noted below. Continue current treatment with the changes noted in the dictated addendum note Assessment: Vital Signs: Vital Signs Date Time Temp Pulse Resp B/P (MAP) Pulse Ox O2 Delivery O2 Flow Rate FiO2 11/03/18 17:02 67 131/69 11/03/18 15:41 98.1 18 96 10/31/18 18:07 Room Air I&O Intake and Output 11/03/18 06:59 Intake Total 480 ml Balance 480 ml Intake Oral 480 ml Current Medications: Meds: Current Medications Acetaminophen (Tylenol) 650 mg PRN Q6HRS PRN PO PAIN / TEMP; Start 10/31/18 at 19:15 Multi-Ingredient Ointment (Analgesic [place]) 1 lynsey PRN QID PRN TP MUSCLE PAIN; Start 10/31/18 at 19:15 Al Hydroxide/Mg Hydroxide (Mylanta Plus Xs) 15 ml PRN AFTMEALHC PRN PO DYSPEPSIA; Start 10/31/18 at 19:15 Magnesium Hydroxide (Milk Of Magnesia) 2,400 mg PRN QHS PRN PO CONSTIPATION; Start 10/31/18 at 19:15 Citalopram Hydrobromide (CeleXA) 20 mg DAILY PO Last administered on 11/03/18at 08:14; Start 11/01/18 at 09:00 Lorazepam (Ativan) 1 mg TID PO Last administered on 11/01/18at 10:08; Start 10/31/18 at 21:00; Stop 11/01/18 at 14:25; Status DC Buspirone HCl (Buspar) 5 mg BID PO Last administered on 11/03/18at 20:22; Start 11/01/18 at 09:00 Donepezil HCl (Aricept) 10 mg DAILY PO Last administered on 11/03/18at 08:14; Start 11/01/18 at 09:00 Melatonin 6 mg QHS PO Last administered on 11/03/18at 20:29; Start 11/01/18 at 21:00 Quetiapine Fumarate (SEROquel) 50 mg QHS PO Last administered on 11/03/18 20:29; Start 10/31/18 at 21:00 Quetiapine Fumarate (SEROquel) 100 mg QHS PO Last administered on 11/03/18 20:22; Start 10/31/18 at 21:00 Albuterol Sulfate (Ventolin) 2.5 mg PRN Q6HRS PRN NEB SHORTNESS OF BREATH; Start 10/31/18 at 20:45 Guaifenesin (Robitussin Dm) 10 ml PRN Q4HRS PRN PO COUGH; Start 10/31/18 at 21:15 Sodium Biphosphate/ Sodium Phosphate (Fleet Adult) 133 ml PRN DAILY PRN RC CONSTIPATION; Start 10/31/18 at 20:45 Nitroglycerin (Nitrostat) 0.4 mg PRN Q5MIN PRN SL CHEST PAIN; Start 10/31/18 at 20:45 Aspirin (Aspirin Enteric Coated) 81 mg DAILYWBKFT PO Last administered on 11/03/18 08:10; Start 11/01/18 at 08:00 Carvedilol (Coreg) 3.125 mg BIDWMEALS PO Last administered on 11/03/18 17:02; Start 11/01/18 at 08:00 Vitamin D (Vitamin D3) 5,000 unit DAILY PO Last administered on 11/03/18 08:15; Start 11/01/18 at 09:00 Levetiracetam (Keppra) 1,000 mg BID PO Last administered on 11/03/18 20:23; Start 11/01/18 at 09:00 Pantoprazole Sodium (Protonix) 40 mg DAILYAC PO Last administered on 11/03/18 08:10; Start 11/01/18 at 07:30 Sennosides (Senna) 8.6 mg PRN BID PRN PO CONSTIPATION; Start 10/31/18 at 21:30 Simvastatin (Zocor) 20 mg DAILY PO Last administered on 11/03/18 08:15; Start 11/01/18 at 09:00 Sodium Chloride (Saline Mist Nasal) 1 lynsey PRN Q6HRS PRN NS NASAL CONGESTION; Start 10/31/18 at 21:30 Non-Formulary Medication (Warfarin Sodium (Coumadin)) 4 mg HS PO ; Start 10/31/18 at 21:00; Stop 11/01/18 at 14:25; Status DC Zonisamide (Zonegran) 100 mg DAILY PO Last administered on 11/03/18at 11:03; Start 11/01/18 at 09:00 Warfarin Sodium (Coumadin Per Physician) 1 each PRN DAILY PRN MC SEE COMMENTS; Start 11/01/18 at 07:15; Stop 11/02/18 at 15:25; Status DC Olanzapine (ZyPREXA ZYDIS) 2.5 mg PRN Q2HR PRN PO PSYCHOSIS; Start 11/01/18 at 12:00 Lorazepam (Ativan) 1 mg Taper DAILY PO Last administered on 11/03/18at 08:18; Start 11/02/18 at 09:00; Stop 11/22/18 at 08:59 Lorazepam (Ativan) 1 mg Taper DAILY@1400 PO Last administered on 11/03/18at 14:28; Start 11/02/18 at 14:00; Stop 11/22/18 at 13:59 Lorazepam (Ativan) 1 mg Taper QHS PO Last administered on 11/03/18at 20:29; S tart 11/01/18 at 21:00; Stop 11/22/18 at 20:59 Warfarin Sodium (Coumadin) 4 mg DAILY@1600 PO Last administered on 11/01/18at 17:04; Start 11/01/18 at 16:00; Stop 11/02/18 at 15:25; Status DC Lorazepam (Ativan) 0.5 mg TID PO ; Start 11/22/18 at 09:00 Active Scripts Active Reported Prednisone 10 Mg Tablet 10 Mg PO QSA Take 3 tablets by mouth twice a day for 3 days, then take 2 tablets by mouth twice a day for 3 days, then take 1 tablet by mouth twice a day for 3 days, then take 1 tablet by mouth daily x 3 days, then stop. Zonegran (Zonisamide) 100 Mg Capsule 100 Mg PO DAILY Vitamin D3 (Cholecalciferol (Vitamin D3)) 5,000 Unit Tablet 5,000 Unit PO DAILY Simvastatin 20 Mg Tablet 20 Mg PO DAILY Seroquel (Quetiapine Fumarate) 50 Mg Tablet 50 Mg PO QHS Seroquel (Quetiapine Fumarate) 100 Mg Tablet 100 Mg PO QHS Senna (Sennosides) 8.6 Mg Tablet 8.6 Mg PO PRN Q12HR PRN Omeprazole 20 Mg Tablet.dr 20 Mg PO DAILY [place] (Sodium Chloride) 104 Ml [place] 2 Sprays NS PRN Q6HRS PRN NITROGLYCERIN SubLingual (Nitroglycerin) 0.4 Mg Tab.subl 0.4 Mg SL PRN Q5MIN PRN Melatonin 3 Mg Tablet 6 Mg PO QHS Ativan (Lorazepam) 1 Mg Tablet 1 Mg PO TID Keppra (Levetiracetam) 1,000 Mg Tablet 1,000 Mg PO BID Guaifenesin Dm Syrup (Guaifenesin/Dextromethorphan) 5 Ml Syrup 10 Ml PO PRN Q4HRS PRN Fleet Enema (Na Phos,M-B/Na Phos,Di-Ba) 133 Ml Enema 133 Ml RC PRN DAILY PRN Coumadin (Warfarin Sodium) 4 Mg Tablet 4 Mg PO HS Coreg (Carvedilol) 3.125 Mg Tablet 3.125 Mg PO BIDWMEALS Celexa (Citalopram Hydrobromide) 20 Mg Tablet 20 Mg PO DAILY Buspirone Hcl 5 Mg Tablet 5 Mg PO BID Lorazepam 2 Mg/1 Ml Vial 0.5 Ml IM DAILY Aspirin Ec (Aspirin) 81 Mg Tablet.dr 81 Mg PO DAILY Albuterol Sulfate Neb Soln (Albuterol Sulfate) 2.5 Mg/3 Ml Vial.neb 2.5 Mg NEB PRN Q6HRS PRN Aricept (Donepezil Hcl) 10 Mg Tablet 10 Mg PO DAILY I have reviewed the current psychotropics carefully including drug interactions. Risk benefit ratio favors no change other than as noted in my dictated progress note. Diagnosis: Problems: (1) Anxiety disorder (2) Dementia, vascular, with depression (3) Dementia, vascular, with delusions (4) Dementia in Alzheimer's disease with delusions (5) Dementia in Alzheimer's disease with depression (6) Impulse control disorder EMILY PYLE MD November 03, 2018 22:37
--- NOTE | 2018-11-04 06:59 | EKG ---
[address] [address] Test Date: 2018-10-31 Test Time: 17:35:39 Pat Name: ROBIN THAKKAR Department: Room: Gender: F Trial Attorney: DPAHNEY : [id number] Requested By: SULEIMAN ALLEN Order Number: [id number] Reading MD: Measurements Intervals [place] Rate: 99 P: NE: QRS: 47 QRSD: 84 T: 146 QT: 298 QTc: 387 Interpretive Statements IRREGULAR RHYTHM, NO P-WAVE FOUND LOW LIMB LEAD VOLTAGE QRS(T) CONTOUR ABNORMALITY CONSISTENT WITH ANTEROSEPTAL INFARCT AGE UNDETERMINED T ABNORMALITY IN HIGH LATERAL LEADS ABNORMAL ECG RI6.01 No previous ECG available for comparison
[2018-11-04 07:02] VITALS: BP 118/78
[2018-11-04] MEDS: PANTOPRAZOLE 40 MG TABLET. PO SCH (07:56)
[2018-11-04] MEDS: CARVEDILOL 3.125 MG TABLET PO SCH ×2 (07:57→17:00)
[2018-11-04] MEDS: ASPIRIN ENTERIC COATED 81 MG TABLET.DR. PO SCH (07:57)
[2018-11-04] MEDS: CHOLECALCIFEROL (VITAMIN D3) 1,000 UNIT TABLET PO SCH (07:58)
[2018-11-04] MEDS: CITALOPRAM 20 MG TABLET. PO SCH (07:59)
[2018-11-04] MEDS: DONEPEZIL HCL 10 MG TABLET PO SCH (08:00)
[2018-11-04] MEDS: SIMVASTATIN 20 MG TABLET PO SCH (08:00)
[2018-11-04] MEDS: busPIRone 5 MG TABLET. PO SCH ×2 (08:00→19:53)
[2018-11-04] MEDS: levETIRAcetam 500 MG TABLET PO SCH ×2 (08:01→19:54)
[2018-11-04] MEDS: LORazepam 0.5 MG TABLET PO SCH ×3 (08:07→19:56)
[2018-11-04] MEDS: ZONISAMIDE 100 MG CAPSULE. PO SCH (08:09)
[2018-11-04 16:03] VITALS: BP 129/81
[2018-11-04] MEDS: QUEtiapine 50 MG TABLET. PO SCH (19:53)
[2018-11-04] MEDS: MELATONIN 3 MG TABLET PO SCH (19:54)
[2018-11-04] MEDS: QUEtiapine 100 MG TABLET. PO SCH (19:54)
--- NOTE | 2018-11-04 22:28 | PDOC ---
Exam Note: Tiburcio Note: Please also refer to the separate dictated note~for this date of service dictated separately.~Patient seen individually. Discussed the patient with Nursing staff reviewed the chart.~Reviewed interim history and current functioning. Reviewed vital signs,~Labs/ Radiology~and current medications noted below. Continue current treatment with the changes noted in the dictated addendum note Assessment: Vital Signs: Vital Signs Date Time Temp Pulse Resp B/P (MAP) Pulse Ox O2 Delivery O2 Flow Rate FiO2 11/04/18 16:03 97.2 64 20 129/81 (97) 98 10/31/18 18:07 Room Air I&O Intake and Output 11/04/18 07:00 Intake Total 720 ml Balance 720 ml Intake Oral 720 ml Current Medications: Meds: Current Medications Acetaminophen (Tylenol) 650 mg PRN Q6HRS PRN PO PAIN / TEMP; Start 10/31/18 at 19:15 Multi-Ingredient Ointment (Analgesic [place]) 1 lynsey PRN QID PRN TP MUSCLE PAIN; Start 10/31/18 at 19:15 Al Hydroxide/Mg Hydroxide (Mylanta Plus Xs) 15 ml PRN AFTMEALHC PRN PO DYSPEPSIA; Start 10/31/18 at 19:15 Magnesium Hydroxide (Milk Of Magnesia) 2,400 mg PRN QHS PRN PO CONSTIPATION; Start 10/31/18 at 19:15 Citalopram Hydrobromide (CeleXA) 20 mg DAILY PO Last administered on 11/04/18at 07:59; Start 11/01/18 at 09:00 Lorazepam (Ativan) 1 mg TID PO Last administered on 11/01/18at 10:08; Start 10/31/18 at 21:00; Stop 11/01/18 at 14:25; Status DC Buspirone HCl (Buspar) 5 mg BID PO Last administered on 11/04/18at 19:53; Start 11/01/18 at 09:00 Donepezil HCl (Aricept) 10 mg DAILY PO Last administered on 11/04/18at 08:00; Start 11/01/18 at 09:00 Melatonin 6 mg QHS PO Last administered on 11/04/18at 19:54; Start 11/01/18 at 21:00 Quetiapine Fumarate (SEROquel) 50 mg QHS PO Last administered on 11/04/18 19:53; Start 10/31/18 at 21:00 Quetiapine Fumarate (SEROquel) 100 mg QHS PO Last administered on 11/04/18 19:54; Start 10/31/18 at 21:00 Albuterol Sulfate (Ventolin) 2.5 mg PRN Q6HRS PRN NEB SHORTNESS OF BREATH; Start 10/31/18 at 20:45 Guaifenesin (Robitussin Dm) 10 ml PRN Q4HRS PRN PO COUGH; Start 10/31/18 at 21:15 Sodium Biphosphate/ Sodium Phosphate (Fleet Adult) 133 ml PRN DAILY PRN RC CONSTIPATION; Start 10/31/18 at 20:45 Nitroglycerin (Nitrostat) 0.4 mg PRN Q5MIN PRN SL CHEST PAIN; Start 10/31/18 at 20:45 Aspirin (Aspirin Enteric Coated) 81 mg DAILYWBKFT PO Last administered on 11/04/18 07:57; Start 11/01/18 at 08:00 Carvedilol (Coreg) 3.125 mg BIDWMEALS PO Last administered on 11/04/18 07:57; Start 11/01/18 at 08:00 Vitamin D (Vitamin D3) 5,000 unit DAILY PO Last administered on 11/04/18 07:58; Start 11/01/18 at 09:00 Levetiracetam (Keppra) 1,000 mg BID PO Last administered on 11/04/18 19:54; Start 11/01/18 at 09:00 Pantoprazole Sodium (Protonix) 40 mg DAILYAC PO Last administered on 11/04/18 07:56; Start 11/01/18 at 07:30 Sennosides (Senna) 8.6 mg PRN BID PRN PO CONSTIPATION; Start 10/31/18 at 21:30 Simvastatin (Zocor) 20 mg DAILY PO Last administered on 11/04/18 08:00; Start 11/01/18 at 09:00 Sodium Chloride (Saline Mist Nasal) 1 lynsey PRN Q6HRS PRN NS NASAL CONGESTION; Start 10/31/18 at 21:30 Non-Formulary Medication (Warfarin Sodium (Coumadin)) 4 mg HS PO ; Start 10/31/18 at 21:00; Stop 11/01/18 at 14:25; Status DC Zonisamide (Zonegran) 100 mg DAILY PO Last administered on 11/04/18at 08:09; Start 11/01/18 at 09:00 Warfarin Sodium (Coumadin Per Physician) 1 each PRN DAILY PRN MC SEE COMMENTS; Start 11/01/18 at 07:15; Stop 11/02/18 at 15:25; Status DC Olanzapine (ZyPREXA ZYDIS) 2.5 mg PRN Q2HR PRN PO PSYCHOSIS; Start 11/01/18 at 12:00 Lorazepam (Ativan) 0.75 mg Taper DAILY PO Last administered on 11/04/18at 08:07; Start 11/02/18 at 09:00; Stop 11/22/18 at 08:59 Lorazepam (Ativan) 1 mg Taper DAILY@1400 PO Last administered on 11/04/18at 15:51; Start 11/02/18 at 14:00; Stop 11/22/18 at 13:59 Lorazepam (Ativan) 1 mg Taper QHS PO Last administered on 11/04/18at 19:56; Start 11/01/18 at 21:00; Stop 11/22/18 at 20:59 Warfarin Sodium (Coumadin) 4 mg DAILY@1600 PO Last administered on 11/01/18at 17:04; Start 11/01/18 at 16:00; Stop 11/02/18 at 15:25; Status DC Lorazepam (Ativan) 0.5 mg TID PO ; Start 11/22/18 at 09:00 Active Scripts Active Reported Prednisone 10 Mg Tablet 10 Mg PO QSA Take 3 tablets by mouth twice a day for 3 days, then take 2 tablets by mouth twice a day for 3 days, then take 1 tablet by mouth twice a day for 3 days, then take 1 tablet by mouth daily x 3 days, then stop. Zonegran (Zonisamide) 100 Mg Capsule 100 Mg PO DAILY Vitamin D3 (Cholecalciferol (Vitamin D3)) 5,000 Unit Tablet 5,000 Unit PO DAILY Simvastatin 20 Mg Tablet 20 Mg PO DAILY Seroquel (Quetiapine Fumarate) 50 Mg Tablet 50 Mg PO QHS Seroquel (Quetiapine Fumarate) 100 Mg Tablet 100 Mg PO QHS Senna (Sennosides) 8.6 Mg Tablet 8.6 Mg PO PRN Q12HR PRN Omeprazole 20 Mg Tablet.dr 20 Mg PO DAILY [place] (Sodium Chloride) 104 Ml [place] 2 Sprays NS PRN Q6HRS PRN NITROGLYCERIN SubLingual (Nitroglycerin) 0.4 Mg Tab.subl 0.4 Mg SL PRN Q5MIN PRN Melatonin 3 Mg Tablet 6 Mg PO QHS Ativan (Lorazepam) 1 Mg Tablet 1 Mg PO TID Keppra (Levetiracetam) 1,000 Mg Tablet 1,000 Mg PO BID Guaifenesin Dm Syrup (Guaifenesin/Dextromethorphan) 5 Ml Syrup 10 Ml PO PRN Q4HRS PRN Fleet Enema (Na Phos,M-B/Na Phos,Di-Ba) 133 Ml Enema 133 Ml RC PRN DAILY PRN Coumadin (Warfarin Sodium) 4 Mg Tablet 4 Mg PO HS Coreg (Carvedilol) 3.125 Mg Tablet 3.125 Mg PO BIDWMEALS Celexa (Citalopram Hydrobromide) 20 Mg Tablet 20 Mg PO DAILY Buspirone Hcl 5 Mg Tablet 5 Mg PO BID Lorazepam 2 Mg/1 Ml Vial 0.5 Ml IM DAILY Aspirin Ec (Aspirin) 81 Mg Tablet.dr 81 Mg PO DAILY Albuterol Sulfate Neb Soln (Albuterol Sulfate) 2.5 Mg/3 Ml Vial.neb 2.5 Mg NEB PRN Q6HRS PRN Aricept (Donepezil Hcl) 10 Mg Tablet 10 Mg PO DAILY I have reviewed the current psychotropics carefully including drug interactions. Risk benefit ratio favors no change other than as noted in my dictated progress note. 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
[2018-11-05 06:16] VITALS: BP 120/74
[2018-11-05 07:41] LABS: BASO % 1 % (0-3); EOS # 0.4 x10^3/uL (0.0-0.7); EOS % 8 % (0-3); HEMATOCRIT 37.8 % (36.0-47.0); HEMOGLOBIN 12.6 g/dL (12.0-15.5); LYMPH # 1.3 x10^3/uL (1.0-4.8); LYMPH % 26 % (24-48); MEAN CORPUSCULAR HEMOGLOBIN 33 pg (25-35); MEAN CORPUSCULAR HGB CONC 33 g/dL (31-37); MEAN CORPUSCULAR VOLUME 99 fL (79-100); MONO # 0.5 x10^3/uL (0.0-1.1); MONO % 10 % (0-9); NEUT # 2.7 x10^3uL (1.8-7.7); NEUT % 56 % (31-73); PLATELET COUNT 134 x10^3/uL (140-400); WHITE BLOOD COUNT 4.9 x10^3/uL (4.0-11.0)
[2018-11-05 07:47] LABS: ALBUMIN/GLOBULIN RATIO 1.1 (1.0-1.7); CALCIUM 8.8 mg/dL (8.5-10.1); CREATININE 1.1 mg/dL (0.6-1.0); GFR 47.1; TOTAL BILIRUBIN 0.3 mg/dL (0.2-1.0); TOTAL PROTEIN 5.7 g/dL (6.4-8.2)
[2018-11-05] MEDS: ASPIRIN ENTERIC COATED 81 MG TABLET.DR. PO SCH (08:22)
[2018-11-05] MEDS: PANTOPRAZOLE 40 MG TABLET. PO SCH (08:22)
[2018-11-05] MEDS: LORazepam 0.5 MG TABLET PO SCH ×3 (08:25→20:49)
[2018-11-05] MEDS: DONEPEZIL HCL 10 MG TABLET PO SCH (08:25)
[2018-11-05] MEDS: CARVEDILOL 3.125 MG TABLET PO SCH ×2 (08:25→17:17)
[2018-11-05] MEDS: busPIRone 5 MG TABLET. PO SCH ×2 (08:26→20:30)
[2018-11-05] MEDS: CITALOPRAM 20 MG TABLET. PO SCH (08:27)
[2018-11-05] MEDS: levETIRAcetam 500 MG TABLET PO SCH ×2 (08:28→20:30)
[2018-11-05] MEDS: CHOLECALCIFEROL (VITAMIN D3) 1,000 UNIT TABLET PO SCH (08:29)
[2018-11-05] MEDS: SIMVASTATIN 20 MG TABLET PO SCH (08:29)
[2018-11-05] MEDS: ZONISAMIDE 100 MG CAPSULE. PO SCH (08:29)
--- NOTE | 2018-11-05 12:15 | PN ---
DATE: 11/04/2018 PSYCHIATRIC PROGRESS NOTE This note covers elements not covered in my initial note 11/04/2018. SUBJECTIVE: The patient was seen evening of 11/04/2018. The patient slept 7 hours previous night. Previous night, she put herself on the floor, telling staff leave me here, I want to . Denies active suicidal ideation as I questioned her. Ativan was given in food, helped her with anxiety. She was able to tell that her birthday is in 1931, otherwise oriented to herself. REVIEW OF SYSTEMS: No CV, , pulmonary, eye, ENT system symptoms on review. Reliability poor. Gait unsteady in wheelchair. MENTAL STATUS EXAM: Oriented to herself. Insight, judgment, recent and remote memory, attention, concentration, fund of knowledge poor, consistent with her diagnosis mentioned in my initial note. PLAN: No change from initial note. MAN Stephanie PYLE MD DR: JASMYN/krissy JOB#: [id number] / [id number]
[2018-11-05 16:12] VITALS: BP 123/82
[2018-11-05] MEDS: QUEtiapine 50 MG TABLET. PO SCH (20:30)
[2018-11-05] MEDS: MELATONIN 3 MG TABLET PO SCH (20:31)
[2018-11-05] MEDS: QUEtiapine 100 MG TABLET. PO SCH (20:31)
--- NOTE | 2018-11-05 22:33 | PDOC ---
Exam Note: Tiburcio Note: Please also refer to the separate dictated note~for this date of service dictated separately.~Patient seen individually. Discussed the patient with Nursing staff reviewed the chart.~Reviewed interim history and current functioning. Reviewed vital signs,~Labs/ Radiology~and current medications noted below. Continue current treatment with the changes noted in the dictated addendum note Assessment: Vital Signs: Vital Signs Date Time Temp Pulse Resp B/P (MAP) Pulse Ox O2 Delivery O2 Flow Rate FiO2 11/05/18 17:17 71 123/82 11/05/18 16:12 97.4 20 96 10/31/18 18:07 Room Air I&O Intake and Output 11/05/18 06:59 Intake Total 1020 ml Balance 1020 ml Intake Oral 1020 ml Labs: Laboratory Tests Test 11/05/18 06:53 White Blood Count 4.9 x10^3/uL (4.0-11.0) Red Blood Count 3.80 x10^6/uL (3.50-5.40) Hemoglobin 12.6 g/dL (12.0-15.5) Hematocrit 37.8 % (36.0-47.0) Mean Corpuscular Volume 99 fL (79-100) Mean Corpuscular Hemoglobin 33 pg (25-35) Mean Corpuscular Hemoglobin Concent 33 g/dL (31-37) Red Cell Distribution Width 14.0 % (11.5-14.5) Platelet Count 134 x10^3/uL (140-400) L Neutrophils (%) (Auto) 56 % (31-73) Lymphocytes (%) (Auto) 26 % (24-48) Monocytes (%) (Auto) 10 % (0-9) H Eosinophils (%) (Auto) 8 % (0-3) H Basophils (%) (Auto) 1 % (0-3) Neutrophils # (Auto) 2.7 x10^3uL (1.8-7.7) Lymphocytes # (Auto) 1.3 x10^3/uL (1.0-4.8) Monocytes # (Auto) 0.5 x10^3/uL (0.0-1.1) Eosinophils # (Auto) 0.4 x10^3/uL (0.0-0.7) Basophils # (Auto) 0.0 x10^3/uL (0.0-0.2) Sodium Level 143 mmol/L (136-145) Potassium Level 4.0 mmol/L (3.5-5.1) Chloride Level 108 mmol/L (98-107) H Carbon Dioxide Level 27 mmol/L (21-32) Anion Gap 8 (6-14) Blood Urea Nitrogen 32 mg/dL (7-20) H Creatinine 1.1 mg/dL (0.6-1.0) H Estimated GFR (Cockcroft-Gault) 47.1 BUN/Creatinine Ratio 29 (6-20) H Glucose Level 96 mg/dL (70-99) Calcium Level 8.8 mg/dL (8.5-10.1) Total Bilirubin 0.3 mg/dL (0.2-1.0) Aspartate Amino Transferase (AST) 10 U/L (15-37) L Alanine Aminotransferase (ALT) 16 U/L (14-59) Alkaline Phosphatase 54 U/L (46-116) Total Protein 5.7 g/dL (6.4-8.2) L Albumin 3.0 g/dL (3.4-5.0) L Albumin/Globulin Ratio 1.1 (1.0-1.7) Current Medications: Meds: Current Medications Acetaminophen (Tylenol) 650 mg PRN Q6HRS PRN PO PAIN / TEMP; Start 10/31/18 at 19:15 Multi-Ingredient Ointment (Analgesic [place]) 1 lynsey PRN QID PRN TP MUSCLE PAIN; Start 10/31/18 at 19:15 Al Hydroxide/Mg Hydroxide (Mylanta Plus Xs) 15 ml PRN AFTMEALHC PRN PO DYSPEPSIA; Start 10/31/18 at 19:15 Magnesium Hydroxide (Milk Of Magnesia) 2,400 mg PRN QHS PRN PO CONSTIPATION; Start 10/31/18 at 19:15 Citalopram Hydrobromide (CeleXA) 20 mg DAILY PO Last administered on 11/05/18at 08:27; Start 11/01/18 at 09:00 Lorazepam (Ativan) 1 mg TID PO Last administered on 11/01/18at 10:08; Start 10/31/18 at 21:00; Stop 11/01/18 at 14:25; Status DC Buspirone HCl (Buspar) 5 mg BID PO Last administered on 11/05/18 20:30; Start 11/01/18 at 09:00 Donepezil HCl (Aricept) 10 mg DAILY PO Last administered on 11/05/18 08:25; Start 11/01/18 at 09:00 Melatonin 6 mg QHS PO Last administered on 11/05/18 20:31; Start 11/01/18 at 21:00 Quetiapine Fumarate (SEROquel) 50 mg QHS PO Last administered on 11/05/18 20:30; Start 10/31/18 at 21:00 Quetiapine Fumarate (SEROquel) 100 mg QHS PO Last administered on 11/05/18 20:31; Start 10/31/18 at 21:00 Albuterol Sulfate (Ventolin) 2.5 mg PRN Q6HRS PRN NEB SHORTNESS OF BREATH; Start 10/31/18 at 20:45 Guaifenesin (Robitussin Dm) 10 ml PRN Q4HRS PRN PO COUGH; Start 10/31/18 at 21:15 Sodium Biphosphate/ Sodium Phosphate (Fleet Adult) 133 ml PRN DAILY PRN RC CONSTIPATION; Start 10/31/18 at 20:45 Nitroglycerin (Nitrostat) 0.4 mg PRN Q5MIN PRN SL CHEST PAIN; Start 10/31/18 at 20:45 Aspirin (Aspirin Enteric Coated) 81 mg DAILYWBKFT PO Last administered on 11/05/18 08:22; Start 11/01/18 at 08:00 Carvedilol (Coreg) 3.125 mg BIDWMEALS PO Last administered on 11/05/18 17:17; Start 11/01/18 at 08:00 Vitamin D (Vitamin D3) 5,000 unit DAILY PO Last administered on 11/05/18 08:29; Start 11/01/18 at 09:00 Levetiracetam (Keppra) 1,000 mg BID PO Last administered on 11/05/18 20:30; Start 11/01/18 at 09:00 Pantoprazole Sodium (Protonix) 40 mg DAILYAC PO Last administered on 11/05/18 08:22; Start 11/01/18 at 07:30 Sennosides (Senna) 8.6 mg PRN BID PRN PO CONSTIPATION; Start 10/31/18 at 21:30 Simvastatin (Zocor) 20 mg DAILY PO Last administered on 11/05/18at 08:29; Start 11/01/18 at 09:00 Sodium Chloride (Saline Mist Nasal) 1 lynsey PRN Q6HRS PRN NS NASAL CONGESTION; Start 10/31/18 at 21:30 Non-Formulary Medication (Warfarin Sodium (Coumadin)) 4 mg HS PO ; Start 10/31/18 at 21:00; Stop 11/01/18 at 14:25; Status DC Zonisamide (Zonegran) 100 mg DAILY PO Last administered on 11/05/18at 08:29; Start 11/01/18 at 09:00 Warfarin Sodium (Coumadin Per Physician) 1 each PRN DAILY PRN MC SEE COMMENTS; Start 11/01/18 at 07:15; Stop 11/02/18 at 15:25; Status DC Olanzapine (ZyPREXA ZYDIS) 2.5 mg PRN Q2HR PRN PO PSYCHOSIS; Start 11/01/18 at 12:00 Lorazepam (Ativan) 0.75 mg Taper DAILY PO Last administered on 11/05/18at 08:25; Start 11/02/18 at 09:00; Stop 11/05/18 at 21:45; Status DC Lorazepam (Ativan) 1 mg Taper DAILY@1400 PO Last administered on 11/05/18at 13:37; Start 11/02/18 at 14:00; Stop 11/05/18 at 21:45; Status DC Lorazepam (Ativan) 1 mg Taper QHS PO Last administered on 11/05/18at 20:49; Start 11/01/18 at 21:00; Stop 11/05/18 at 21:45; Status DC Warfarin Sodium (Coumadin) 4 mg DAILY@1600 PO Last administered on 11/01/18at 17:04; Start 11/01/18 at 16:00; Stop 11/02/18 at 15:25; Status DC Lorazepam (Ativan) 0.5 mg TID PO ; Start 11/22/18 at 09:00 Active Scripts Active Reported Prednisone 10 Mg Tablet 10 Mg PO QSA Take 3 tablets by mouth twice a day for 3 days, then take 2 tablets by mouth twice a day for 3 days, then take 1 tablet by mouth twice a day for 3 days, then take 1 tablet by mouth daily x 3 days, then stop. Zonegran (Zonisamide) 100 Mg Capsule 100 Mg PO DAILY Vitamin D3 (Cholecalciferol (Vitamin D3)) 5,000 Unit Tablet 5,000 Unit PO DAILY Simvastatin 20 Mg Tablet 20 Mg PO DAILY Seroquel (Quetiapine Fumarate) 50 Mg Tablet 50 Mg PO QHS Seroquel (Quetiapine Fumarate) 100 Mg Tablet 100 Mg PO QHS Senna (Sennosides) 8.6 Mg Tablet 8.6 Mg PO PRN Q12HR PRN Omeprazole 20 Mg Tablet.dr 20 Mg PO DAILY [place] (Sodium Chloride) 104 Ml [place] 2 Sprays NS PRN Q6HRS PRN NITROGLYCERIN SubLingual (Nitroglycerin) 0.4 Mg Tab.subl 0.4 Mg SL PRN Q5MIN PRN Melatonin 3 Mg Tablet 6 Mg PO QHS Ativan (Lorazepam) 1 Mg Tablet 1 Mg PO TID Keppra (Levetiracetam) 1,000 Mg Tablet 1,000 Mg PO BID Guaifenesin Dm Syrup (Guaifenesin/Dextromethorphan) 5 Ml Syrup 10 Ml PO PRN Q4HRS PRN Fleet Enema (Na Phos,M-B/Na Phos,Di-Ba) 133 Ml Enema 133 Ml RC PRN DAILY PRN Coumadin (Warfarin Sodium) 4 Mg Tablet 4 Mg PO HS Coreg (Carvedilol) 3.125 Mg Tablet 3.125 Mg PO BIDWMEALS Celexa (Citalopram Hydrobromide) 20 Mg Tablet 20 Mg PO DAILY Buspirone Hcl 5 Mg Tablet 5 Mg PO BID Lorazepam 2 Mg/1 Ml Vial 0.5 Ml IM DAILY Aspirin Ec (Aspirin) 81 Mg Tablet.dr 81 Mg PO DAILY Albuterol Sulfate Neb Soln (Albuterol Sulfate) 2.5 Mg/3 Ml Vial.neb 2.5 Mg NEB PRN Q6HRS PRN Aricept (Donepezil Hcl) 10 Mg Tablet 10 Mg PO DAILY I have reviewed the current psychotropics carefully including drug interactions. Risk benefit ratio favors no change other than as noted in my dictated progress note. 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
--- NOTE | 2018-11-05 23:26 | PN ---
DATE: 11/05/2018 PSYCHIATRIC PROGRESS NOTE This note covers elements not covered in my initial note 11/05/2018. SUBJECTIVE: I met with the patient in the evening of 11/05/2018. The patient slept 6 hours previous night. She remains confused, compliant with the medications. Family has requested that she not be allowed to call her . REVIEW OF SYSTEMS: No CV, , pulmonary, eye, ENT system symptoms on review. Reliability poor. MENTAL STATUS EXAM: Oriented to herself. Insight, judgment, recent and remote memory, attention, concentration, fund of knowledge poor, consistent with her diagnosis mentioned in my initial note. PLAN: No change from initial note, but we will go ahead and taper the Ativan, currently 1 mg t.i.d., will reduce to 0.75 mg a.m., 1 mg b.i.d. for 2 days, then 0.75 mg b.i.d. and 1 mg at bedtime thereafter. Rest unchanged. MAN Stephanie PYLE MD DR: JASMYN/krissy JOB#: [id number] / [id number]
--- NOTE | 2018-11-05 23:54 | PN ---
DATE: 11/02/2018 PSYCHIATRIC PROGRESS NOTE This is late entry, 11/02/2018 covers elements not covered in my initial note. SUBJECTIVE: I met with the patient in the evening. The patient is somewhat withdrawn in the evening, previous day and all day during the day of 11/02/2018. She slept through breakfast, slept about 4 hours, up for lunch, took meds at 12:30. Restless at times, making statements, "I am ." REVIEW OF SYSTEMS: No CV, , pulmonary, eye, ENT system symptoms on review. Reliability poor. MENTAL STATUS EXAM: Oriented to herself. Insight, judgment, recent and remote memory, attention, concentration, fund of knowledge poor, consistent with her diagnosis mentioned in my initial note. PLAN: No change from initial note. MAN Stephanie PYLE MD DR: JASMYN/krissy JOB#: [id number] / [id number]
--- NOTE | 2018-11-06 00:52 | PN ---
DATE: 11/03/2018 PSYCHIATRIC PROGRESS NOTE This late entry 11/03/2018 covers elements not covered in my initial note. SUBJECTIVE: I met with the patient in the evening of 11/03/2018. The patient slept 8-1/4 hours previous night. She is compliant with medications. No PRNs given. REVIEW OF SYSTEMS: No CV, , pulmonary, eye, ENT system symptoms on review. Reliability poor. MENTAL STATUS EXAM: Oriented to herself. Insight, judgment, recent and remote memory, attention, concentration, fund of knowledge poor, consistent with her diagnosis mentioned in my initial note. PLAN: No change from initial note. MAN Stephanie PYLE MD DR: JASMYN/krissy JOB#: [id number] / [id number]
[2018-11-06 06:01] VITALS: BP 113/67
[2018-11-06] MEDS: PANTOPRAZOLE 40 MG TABLET. PO SCH (08:11)
[2018-11-06] MEDS: ASPIRIN ENTERIC COATED 81 MG TABLET.DR. PO SCH (08:11)
[2018-11-06] MEDS: CARVEDILOL 3.125 MG TABLET PO SCH ×2 (08:12→17:10)
[2018-11-06] MEDS: DONEPEZIL HCL 10 MG TABLET PO SCH (08:12)
[2018-11-06] MEDS: LORazepam 0.5 MG TABLET PO SCH (08:13)
[2018-11-06] MEDS: levETIRAcetam 500 MG TABLET PO SCH ×2 (08:14→19:21)
[2018-11-06] MEDS: busPIRone 5 MG TABLET. PO SCH ×2 (08:14→19:20)
[2018-11-06] MEDS: CITALOPRAM 20 MG TABLET. PO SCH (08:14)
[2018-11-06] MEDS: SIMVASTATIN 20 MG TABLET PO SCH (08:15)
[2018-11-06] MEDS: CHOLECALCIFEROL (VITAMIN D3) 1,000 UNIT TABLET PO SCH (08:15)
[2018-11-06] MEDS: ZONISAMIDE 100 MG CAPSULE. PO SCH (08:15)
[2018-11-06] MEDS: LORazepam 1 MG TABLET PO SCH (12:28)
[2018-11-06 16:33] VITALS: BP 125/86
[2018-11-06] MEDS: QUEtiapine 100 MG TABLET. PO SCH (19:20)
[2018-11-06] MEDS: MELATONIN 3 MG TABLET PO SCH (19:20)
[2018-11-06] MEDS: QUEtiapine 50 MG TABLET. PO SCH (19:20)
--- NOTE | 2018-11-06 22:38 | PDOC ---
Exam Note: Tiburcio Note: Please also refer to the separate dictated note~for this date of service dictated separately.~Patient seen individually. Discussed the patient with Nursing staff reviewed the chart.~Reviewed interim history and current functioning. Reviewed vital signs,~Labs/ Radiology~and current medications noted below. Continue current treatment with the changes noted in the dictated addendum note Assessment: Vital Signs: Vital Signs Date Time Temp Pulse Resp B/P (MAP) Pulse Ox O2 Delivery O2 Flow Rate FiO2 11/06/18 17:10 74 125/86 11/06/18 16:33 97.3 17 96 Room Air I&O Intake and Output 11/06/18 06:59 Intake Total 440 ml Balance 440 ml Intake Oral 440 ml # Voids 1 Current Medications: Meds: Current Medications Acetaminophen (Tylenol) 650 mg PRN Q6HRS PRN PO PAIN / TEMP; Start 10/31/18 at 19:15 Multi-Ingredient Ointment (Analgesic [place]) 1 lynsey PRN QID PRN TP MUSCLE PAIN; Start 10/31/18 at 19:15 Al Hydroxide/Mg Hydroxide (Mylanta Plus Xs) 15 ml PRN AFTMEALHC PRN PO DYSPEPSIA; Start 10/31/18 at 19:15 Magnesium Hydroxide (Milk Of Magnesia) 2,400 mg PRN QHS PRN PO CONSTIPATION; Start 10/31/18 at 19:15 Citalopram Hydrobromide (CeleXA) 20 mg DAILY PO Last administered on 11/06/18at 08:14; Start 11/01/18 at 09:00 Lorazepam (Ativan) 1 mg TID PO Last administered on 11/01/18at 10:08; Start 10/31/18 at 21:00; Stop 11/01/18 at 14:25; Status DC Buspirone HCl (Buspar) 5 mg BID PO Last administered on 11/06/18at 19:20; Start 11/01/18 at 09:00 Donepezil HCl (Aricept) 10 mg DAILY PO Last administered on 11/06/18at 08:12; Start 11/01/18 at 09:00 Melatonin 6 mg QHS PO Last administered on 11/06/18at 19:20; Start 11/01/18 at 21:00 Quetiapine Fumarate (SEROquel) 50 mg QHS PO Last administered on 11/06/18 19:20; Start 10/31/18 at 21:00 Quetiapine Fumarate (SEROquel) 100 mg QHS PO Last administered on 11/06/18 19:20; Start 10/31/18 at 21:00 Albuterol Sulfate (Ventolin) 2.5 mg PRN Q6HRS PRN NEB SHORTNESS OF BREATH Last administered on 11/06/18 06:24; Start 10/31/18 at 20:45 Guaifenesin (Robitussin Dm) 10 ml PRN Q4HRS PRN PO COUGH; Start 10/31/18 at 21:15 Sodium Biphosphate/ Sodium Phosphate (Fleet Adult) 133 ml PRN DAILY PRN RC CONSTIPATION; Start 10/31/18 at 20:45 Nitroglycerin (Nitrostat) 0.4 mg PRN Q5MIN PRN SL CHEST PAIN; Start 10/31/18 at 20:45 Aspirin (Aspirin Enteric Coated) 81 mg DAILYWBKFT PO Last administered on 11/06/18 08:11; Start 11/01/18 at 08:00 Carvedilol (Coreg) 3.125 mg BIDWMEALS PO Last administered on 11/06/18 17:10; Start 11/01/18 at 08:00 Vitamin D (Vitamin D3) 5,000 unit DAILY PO Last administered on 11/06/18 08:15; Start 11/01/18 at 09:00 Levetiracetam (Keppra) 1,000 mg BID PO Last administered on 11/06/18 19:21; Start 11/01/18 at 09:00 Pantoprazole Sodium (Protonix) 40 mg DAILYAC PO Last administered on 11/06/18 08:11; Start 11/01/18 at 07:30 Sennosides (Senna) 8.6 mg PRN BID PRN PO CONSTIPATION; Start 10/31/18 at 21:30 Simvastatin (Zocor) 20 mg DAILY PO Last administered on 11/06/18 08:15; Start 11/01/18 at 09:00 Sodium Chloride (Saline Mist Nasal) 1 lynsye PRN Q6HRS PRN NS NASAL CONGESTION; Start 10/31/18 at 21:30 Non-Formulary Medication (Warfarin Sodium (Coumadin)) 4 mg HS PO ; Start 10/31/18 at 21:00; Stop 11/01/18 at 14:25; Status DC Zonisamide (Zonegran) 100 mg DAILY PO Last administered on 11/06/18at 08:15; Start 11/01/18 at 09:00 Warfarin Sodium (Coumadin Per Physician) 1 each PRN DAILY PRN MC SEE COMMENTS; Start 11/01/18 at 07:15; Stop 11/02/18 at 15:25; Status DC Olanzapine (ZyPREXA ZYDIS) 2.5 mg PRN Q2HR PRN PO PSYCHOSIS; Start 11/01/18 at 12:00 Lorazepam (Ativan) 0.75 mg Taper DAILY PO Last administered on 11/05/18at 08:25; Start 11/02/18 at 09:00; Stop 11/05/18 at 21:45; Status DC Lorazepam (Ativan) 1 mg Taper DAILY@1400 PO Last administered on 11/05/18at 13:37; Start 11/02/18 at 14:00; Stop 11/05/18 at 21:45; Status DC Lorazepam (Ativan) 1 mg Taper QHS PO Last administered on 11/05/18at 20:49; Start 11/01/18 at 21:00; Stop 11/05/18 at 21:45; Status DC Warfarin Sodium (Coumadin) 4 mg DAILY@1600 PO Last administered on 11/01/18at 17:04; Start 11/01/18 at 16:00; Stop 11/02/18 at 15:25; Status DC Lorazepam (Ativan) 0.5 mg TID PO ; Start 11/22/18 at 09:00; Stop 11/22/18 at 09:00; Status DC Lorazepam (Ativan) 0.75 mg DAILY PO Last administered on 11/06/18at 08:13; Start 11/06/18 at 09:00 Lorazepam (Ativan) 1 mg AFTRNOON PO Last administered on 11/06/18at 12:28; Start 11/06/18 at 13:00; Stop 11/08/18 at 12:59 Lorazepam (Ativan) 0.75 mg PRN QEVNG PRN PO ANXIETY / AGITATION; Start 11/09/18 at 14:00 Lorazepam (Ativan) 1 mg PRN QHS PRN PO ANXIETY / AGITATION; Start 11/06/18 at 23:00 Active Scripts Active Reported Prednisone 10 Mg Tablet 10 Mg PO QSA Take 3 tablets by mouth twice a day for 3 days, then take 2 tablets by mouth twice a day for 3 days, then take 1 tablet by mouth twice a day for 3 days, then take 1 tablet by mouth daily x 3 days, then stop. Zonegran (Zonisamide) 100 Mg Capsule 100 Mg PO DAILY Vitamin D3 (Cholecalciferol (Vitamin D3)) 5,000 Unit Tablet 5,000 Unit PO DAILY Simvastatin 20 Mg Tablet 20 Mg PO DAILY Seroquel (Quetiapine Fumarate) 50 Mg Tablet 50 Mg PO QHS Seroquel (Quetiapine Fumarate) 100 Mg Tablet 100 Mg PO QHS Senna (Sennosides) 8.6 Mg Tablet 8.6 Mg PO PRN Q12HR PRN Omeprazole 20 Mg Tablet.dr 20 Mg PO DAILY [place] (Sodium Chloride) 104 Ml [place] 2 Sprays NS PRN Q6HRS PRN NITROGLYCERIN SubLingual (Nitroglycerin) 0.4 Mg Tab.subl 0.4 Mg SL PRN Q5MIN PRN Melatonin 3 Mg Tablet 6 Mg PO QHS Ativan (Lorazepam) 1 Mg Tablet 1 Mg PO TID Keppra (Levetiracetam) 1,000 Mg Tablet 1,000 Mg PO BID Guaifenesin Dm Syrup (Guaifenesin/Dextromethorphan) 5 Ml Syrup 10 Ml PO PRN Q4HRS PRN Fleet Enema (Na Phos,M-B/Na Phos,Di-Ba) 133 Ml Enema 133 Ml RC PRN DAILY PRN Coumadin (Warfarin Sodium) 4 Mg Tablet 4 Mg PO HS Coreg (Carvedilol) 3.125 Mg Tablet 3.125 Mg PO BIDWMEALS Celexa (Citalopram Hydrobromide) 20 Mg Tablet 20 Mg PO DAILY Buspirone Hcl 5 Mg Tablet 5 Mg PO BID Lorazepam 2 Mg/1 Ml Vial 0.5 Ml IM DAILY Aspirin Ec (Aspirin) 81 Mg Tablet.dr 81 Mg PO DAILY Albuterol Sulfate Neb Soln (Albuterol Sulfate) 2.5 Mg/3 Ml Vial.neb 2.5 Mg NEB PRN Q6HRS PRN Aricept (Donepezil Hcl) 10 Mg Tablet 10 Mg PO DAILY I have reviewed the current psychotropics carefully including drug interactions. Risk benefit ratio favors no change other than as noted in my dictated progress note. Diagnosis: Problems: (1) Anxiety disorder (2) Dementia, vascular, with depression (3) Dementia, vascular, with delusions (4) Dementia in Alzheimer's disease with delusions (5) Dementia in Alzheimer's disease with depression (6) Impulse control disorder EMILY PYLE MD November 06, 2018 22:38
--- NOTE | 2018-11-06 22:58 | PN ---
DATE: 11/06/2018 PSYCHIATRIC PROGRESS NOTE This note covers elements not covered in my initial note 11/06/2018. SUBJECTIVE: I met with the patient in the evening. The patient slept 8 hours previous night, somewhat withdrawn, certainly very confused, depressed, flat, needs encouragement to do her ADLs. REVIEW OF SYSTEMS: No CV, , pulmonary, eye, ENT system symptoms on review. Reliability poor. MENTAL STATUS EXAM: Oriented to herself. Insight, judgment, recent and remote memory, attention, concentration, fund of knowledge poor, consistent with her diagnosis mentioned in my initial note. PLAN: No change from initial note. MAN Stephanie PYLE MD DR: JASMYN/krissy JOB#: [id number] / [id number]
[2018-11-06] MEDS ORDERED: LORazepam 1 MG TABLET PO PRN (23:00)
[2018-11-07 06:05] VITALS: BP 138/77
[2018-11-07] MEDS: PANTOPRAZOLE 40 MG TABLET. PO SCH (08:32)
[2018-11-07] MEDS: CARVEDILOL 3.125 MG TABLET PO SCH ×2 (08:32→17:29)
[2018-11-07] MEDS: CITALOPRAM 20 MG TABLET. PO SCH (08:32)
[2018-11-07] MEDS: busPIRone 5 MG TABLET. PO SCH ×2 (08:32→20:21)
[2018-11-07] MEDS: CHOLECALCIFEROL (VITAMIN D3) 1,000 UNIT TABLET PO SCH (08:32)
[2018-11-07] MEDS: ASPIRIN ENTERIC COATED 81 MG TABLET.DR. PO SCH (08:32)
[2018-11-07] MEDS: levETIRAcetam 500 MG TABLET PO SCH ×2 (08:33→20:21)
[2018-11-07] MEDS: SIMVASTATIN 20 MG TABLET PO SCH (08:33)
[2018-11-07] MEDS: DONEPEZIL HCL 10 MG TABLET PO SCH (08:33)
[2018-11-07] MEDS: ZONISAMIDE 100 MG CAPSULE. PO SCH (08:37)
[2018-11-07] MEDS: LORazepam 0.5 MG TABLET PO SCH (08:45)
[2018-11-07] MEDS: LORazepam 1 MG TABLET PO SCH (12:42)
[2018-11-07 16:33] VITALS: BP 135/94
--- NOTE | 2018-11-07 18:03 | RAD ---
CT scan of the head without contrast 11/07/2018 Clinical History: Fall with head injury. Technique: Unenhanced, contiguous, 5 mm axial sections were obtained through the head. One or more of the following individualized dose reduction techniques were utilized for this study: 1. Automated exposure control. 2. Adjustment of the mA and/or kV according to patient size. 3. Use of iterative reconstruction technique. Findings: There is generalized parenchymal atrophy. Areas of decreased attenuation are seen within the periventricular and subcortical white matter of both cerebral hemispheres consistent with areas of small vessel ischemic disease. An area encephalomalacia is seen involving the left parietal lobe. No acute parenchymal abnormality is seen. No extra-axial fluid collection is noted. No skull fracture is seen. Mild to moderate mucosal thickening is seen scattered throughout the paranasal sinuses. Impression: No acute intracranial abnormality is seen. CT scan of the facial bones without contrast 11/07/2018 Clinical history: Fall with facial bone injury. Technique: Unenhanced, contiguous, 0.625 mm axial sections were obtained through the facial bones and orbits. 3 mm reconstructed sagittal, axial and coronal images were obtained. One or more of the following individualized dose reduction techniques were utilized for this study: 1. Automated exposure control. 2. Adjustment of the mA and/or kV according to patient size. 3. Use of iterative reconstruction technique. Findings: There appears to be an acute fracture involving the nasal bone. The distal nasal bone is mildly displaced laterally to the left. There is associated soft tissue swelling. No additional facial bone fractures seen. Both orbits are intact. Mild to moderate mucosal thickening is seen throughout the paranasal sinuses. IMPRESSION: Acute nasal bone fracture is discussed above. No additional facial bone fractures seen. Electronically signed by: Dillon Boykin MD (11/07/2018 6:00 PM) [facility]
--- NOTE | 2018-11-07 18:42 | RAD ---
CT scan of the chest without contrast 11/07/2018 CLINICAL HISTORY: Post fall. Wheezing. TECHNIQUE: Unenhanced contiguous, 5 mm axial sections were obtained through the chest and upper abdomen. One or more of the following individualized dose reduction techniques were utilized for this study: 1. Automated exposure control. 2. Adjustment of the mA and/or kV according to patient size. 3. Use of iterative reconstruction technique. FINDINGS: There is mild to moderate cardiomegaly. Atherosclerotic calcification of the thoracic aorta is seen. The thoracic aorta is tortuous. Coronary artery calcifications are seen. A 6 mm calcified granuloma is seen involving the right lower lobe. No acute pulmonary infiltrate is seen. No pleural effusion or pneumothorax is noted. Images through the upper abdomen demonstrate atherosclerotic calcification of the abdominal aorta. Degenerative changes are seen involving the thoracic spine. The osseous structures are grossly intact. IMPRESSION: No acute abnormality is seen. Electronically signed by: Dillon Boykin MD (11/07/2018 6:40 PM) [facility]
[2018-11-07] MEDS: MELATONIN 3 MG TABLET PO SCH (20:21)
[2018-11-07] MEDS: QUEtiapine 50 MG TABLET. PO SCH (20:21)
[2018-11-07] MEDS: QUEtiapine 100 MG TABLET. PO SCH (20:21)
[2018-11-07 21:29] LABS: BASO % 1 % (0-3); EOS # 0.5 x10^3/uL (0.0-0.7); EOS % 7 % (0-3); HEMATOCRIT 45.7 % (36.0-47.0); HEMOGLOBIN 15.1 g/dL (12.0-15.5); LYMPH # 1.4 x10^3/uL (1.0-4.8); LYMPH % 21 % (24-48); MEAN CORPUSCULAR HEMOGLOBIN 33 pg (25-35); MEAN CORPUSCULAR HGB CONC 33 g/dL (31-37); MEAN CORPUSCULAR VOLUME 101 fL (79-100); MONO # 0.4 x10^3/uL (0.0-1.1); MONO % 7 % (0-9); NEUT # 4.5 x10^3uL (1.8-7.7); NEUT % 65 % (31-73); PLATELET COUNT 164 x10^3/uL (140-400); RED BLOOD COUNT 4.53 x10^6/uL (3.50-5.40); RED CELL DISTRIBUTION WIDTH 14.3 % (11.5-14.5); WHITE BLOOD COUNT 6.9 x10^3/uL (4.0-11.0)
[2018-11-07 21:42] LABS: ALBUMIN/GLOBULIN RATIO 1.2 (1.0-1.7); CALCIUM 9.4 mg/dL (8.5-10.1); CREATININE 1.3 mg/dL (0.6-1.0); GFR 38.8; POTASSIUM 4.1 mmol/L (3.5-5.1); TOTAL BILIRUBIN 0.4 mg/dL (0.2-1.0); TOTAL PROTEIN 7.4 g/dL (6.4-8.2)
--- NOTE | 2018-11-07 22:27 | PDOC ---
Exam Note: Tiburcio Note: Please also refer to the separate dictated note~for this date of service dictated separately.~Patient seen individually. Discussed the patient with Nursing staff reviewed the chart.~Reviewed interim history and current functioning. Reviewed vital signs,~Labs/ Radiology~and current medications noted below. Continue current treatment with the changes noted in the dictated addendum note Assessment: Vital Signs: Vital Signs Date Time Temp Pulse Resp B/P (MAP) Pulse Ox O2 Delivery O2 Flow Rate FiO2 11/07/18 17:29 84 135/94 11/07/18 16:33 97.4 16 96 11/07/18 06:05 Room Air I&O Intake and Output 11/07/18 07:00 Intake Total 960 ml Balance 960 ml Intake Oral 960 ml Labs: Laboratory Tests Test 11/07/18 21:15 White Blood Count 6.9 x10^3/uL (4.0-11.0) Red Blood Count 4.53 x10^6/uL (3.50-5.40) Hemoglobin 15.1 g/dL (12.0-15.5) Hematocrit 45.7 % (36.0-47.0) Mean Corpuscular Volume 101 fL (79-100) H Mean Corpuscular Hemoglobin 33 pg (25-35) Mean Corpuscular Hemoglobin Concent 33 g/dL (31-37) Red Cell Distribution Width 14.3 % (11.5-14.5) Platelet Count 164 x10^3/uL (140-400) Neutrophils (%) (Auto) 65 % (31-73) Lymphocytes (%) (Auto) 21 % (24-48) L Monocytes (%) (Auto) 7 % (0-9) Eosinophils (%) (Auto) 7 % (0-3) H Basophils (%) (Auto) 1 % (0-3) Neutrophils # (Auto) 4.5 x10^3uL (1.8-7.7) Lymphocytes # (Auto) 1.4 x10^3/uL (1.0-4.8) Monocytes # (Auto) 0.4 x10^3/uL (0.0-1.1) Eosinophils # (Auto) 0.5 x10^3/uL (0.0-0.7) Basophils # (Auto) 0.0 x10^3/uL (0.0-0.2) Sodium Level 142 mmol/L (136-145) Potassium Level 4.1 mmol/L (3.5-5.1) Chloride Level 104 mmol/L (98-107) Carbon Dioxide Level 29 mmol/L (21-32) Anion Gap 9 (6-14) Blood Urea Nitrogen 28 mg/dL (7-20) H Creatinine 1.3 mg/dL (0.6-1.0) H Estimated GFR (Cockcroft-Gault) 38.8 BUN/Creatinine Ratio 22 (6-20) H Glucose Level 119 mg/dL (70-99) H Calcium Level 9.4 mg/dL (8.5-10.1) Total Bilirubin 0.4 mg/dL (0.2-1.0) Aspartate Amino Transferase (AST) 13 U/L (15-37) L Alanine Aminotransferase (ALT) 20 U/L (14-59) Alkaline Phosphatase 79 U/L (46-116) Total Protein 7.4 g/dL (6.4-8.2) Albumin 4.0 g/dL (3.4-5.0) Albumin/Globulin Ratio 1.2 (1.0-1.7) Current Medications: Meds: Current Medications Acetaminophen (Tylenol) 650 mg PRN Q6HRS PRN PO PAIN / TEMP; Start 10/31/18 at 19:15 Multi-Ingredient Ointment (Analgesic [place]) 1 lynsey PRN QID PRN TP MUSCLE PAIN; Start 10/31/18 at 19:15 Al Hydroxide/Mg Hydroxide (Mylanta Plus Xs) 15 ml PRN AFTMEALHC PRN PO DYS PEPSIA; Start 10/31/18 at 19:15 Magnesium Hydroxide (Milk Of Magnesia) 2,400 mg PRN QHS PRN PO CONSTIPATION; Start 10/31/18 at 19:15 Citalopram Hydrobromide (CeleXA) 20 mg DAILY PO Last administered on 11/07/18at 08:32; Start 11/01/18 at 09:00 Lorazepam (Ativan) 1 mg TID PO Last administered on 11/01/18at 10:08; Start 10/31/18 at 21:00; Stop 11/01/18 at 14:25; Status DC Buspirone HCl (Buspar) 5 mg BID PO Last administered on 11/07/18 20:21; Start 11/01/18 at 09:00 Donepezil HCl (Aricept) 10 mg DAILY PO Last administered on 11/07/18 08:33; Start 11/01/18 at 09:00 Melatonin 6 mg QHS PO Last administered on 11/07/18 20:21; Start 11/01/18 at 21:00 Quetiapine Fumarate (SEROquel) 50 mg QHS PO Last administered on 11/07/18 20:21; Start 10/31/18 at 21:00 Quetiapine Fumarate (SEROquel) 100 mg QHS PO Last administered on 11/07/18 20:21; Start 10/31/18 at 21:00 Albuterol Sulfate (Ventolin) 2.5 mg PRN Q6HRS PRN NEB SHORTNESS OF BREATH Last administered on 11/06/18 06:24; Start 10/31/18 at 20:45 Guaifenesin (Robitussin Dm) 10 ml PRN Q4HRS PRN PO COUGH; Start 10/31/18 at 21:15 Sodium Biphosphate/ Sodium Phosphate (Fleet Adult) 133 ml PRN DAILY PRN RC CONSTIPATION; Start 10/31/18 at 20:45 Nitroglycerin (Nitrostat) 0.4 mg PRN Q5MIN PRN SL CHEST PAIN; Start 10/31/18 at 20:45 Aspirin (Aspirin Enteric Coated) 81 mg DAILYWBKFT PO Last administered on 11/07/18 08:32; Start 11/01/18 at 08:00 Carvedilol (Coreg) 3.125 mg BIDWMEALS PO Last administered on 11/07/18 17:29; Start 11/01/18 at 08:00 Vitamin D (Vitamin D3) 5,000 unit DAILY PO Last administered on 11/07/18 08:32; Start 11/01/18 at 09:00 Levetiracetam (Keppra) 1,000 mg BID PO Last administered on 11/07/18 20:21; Start 11/01/18 at 09:00 Pantoprazole Sodium (Protonix) 40 mg DAILYAC PO Last administered on 11/07/18 08:32; Start 11/01/18 at 07:30 Sennosides (Senna) 8.6 mg PRN BID PRN PO CONSTIPATION; Start 10/31/18 at 21:30 Simvastatin (Zocor) 20 mg DAILY PO Last administered on 11/07/18at 08:33; Start 11/01/18 at 09:00 Sodium Chloride (Saline Mist Nasal) 1 lynsey PRN Q6HRS PRN NS NASAL CONGESTION; Start 10/31/18 at 21:30 Non-Formulary Medication (Warfarin Sodium (Coumadin)) 4 mg HS PO ; Start 10/31/18 at 21:00; Stop 11/01/18 at 14:25; Status DC Zonisamide (Zonegran) 100 mg DAILY PO Last administered on 11/07/18 08:37; Start 11/01/18 at 09:00 Warfarin Sodium (Coumadin Per Physician) 1 each PRN DAILY PRN MC SEE COMMENTS; Start 11/01/18 at 07:15; Stop 11/02/18 at 15:25; Status DC Olanzapine (ZyPREXA ZYDIS) 2.5 mg PRN Q2HR PRN PO PSYCHOSIS; Start 11/01/18 at 12:00 Lorazepam (Ativan) 0.75 mg Taper DAILY PO Last administered on 11/05/18 08:25; Start 11/02/18 at 09:00; Stop 11/05/18 at 21:45; Status DC Lorazepam (Ativan) 1 mg Taper DAILY@1400 PO Last administered on 11/05/18 13:37; Start 11/02/18 at 14:00; Stop 11/05/18 at 21:45; Status DC Lorazepam (Ativan) 1 mg Taper QHS PO Last administered on 11/05/18at 20:49; Start 11/01/18 at 21:00; Stop 11/05/18 at 21:45; Status DC Warfarin Sodium (Coumadin) 4 mg DAILY@1600 PO Last administered on 11/01/18at 17:04; Start 11/01/18 at 16:00; Stop 11/02/18 at 15:25; Status DC Lorazepam (Ativan) 0.5 mg TID PO ; Start 11/22/18 at 09:00; Stop 11/22/18 at 09:00; Status DC Lorazepam (Ativan) 0.75 mg DAILY PO Last administered on 5/29/19at 08:45; Start 11/06/18 at 09:00 Lorazepam (Ativan) 1 mg AFTRNOON PO Last administered on 11/07/18at 12:42; Start 11/06/18 at 13:00; Stop 11/08/18 at 12:59 Lorazepam (Ativan) 0.75 mg PRN QEVNG PRN PO ANXIETY / AGITATION; Start 11/09/18 at 14:00 Lorazepam (Ativan) 1 mg PRN QHS PRN PO ANXIETY / AGITATION; Start 11/06/18 at 23:00 Active Scripts Active Reported Prednisone 10 Mg Tablet 10 Mg PO QSA Take 3 tablets by mouth twice a day for 3 days, then take 2 tablets by mouth twice a day for 3 days, then take 1 tablet by mouth twice a day for 3 days, then take 1 tablet by mouth daily x 3 days, then stop. Zonegran (Zonisamide) 100 Mg Capsule 100 Mg PO DAILY Vitamin D3 (Cholecalciferol (Vitamin D3)) 5,000 Unit Tablet 5,000 Unit PO DAILY Simvastatin 20 Mg Tablet 20 Mg PO DAILY Seroquel (Quetiapine Fumarate) 50 Mg Tablet 50 Mg PO QHS Seroquel (Quetiapine Fumarate) 100 Mg Tablet 100 Mg PO QHS Senna (Sennosides) 8.6 Mg Tablet 8.6 Mg PO PRN Q12HR PRN Omeprazole 20 Mg Tablet.dr 20 Mg PO DAILY [place] (Sodium Chloride) 104 Ml [place] 2 Sprays NS PRN Q6HRS PRN NITROGLYCERIN SubLingual (Nitroglycerin) 0.4 Mg Tab.subl 0.4 Mg SL PRN Q5MIN PRN Melatonin 3 Mg Tablet 6 Mg PO QHS Ativan (Lorazepam) 1 Mg Tablet 1 Mg PO TID Keppra (Levetiracetam) 1,000 Mg Tablet 1,000 Mg PO BID Guaifenesin Dm Syrup (Guaifenesin/Dextromethorphan) 5 Ml Syrup 10 Ml PO PRN Q4HRS PRN Fleet Enema (Na Phos,M-B/Na Phos,Di-Ba) 133 Ml Enema 133 Ml RC PRN DAILY PRN Coumadin (Warfarin Sodium) 4 Mg Tablet 4 Mg PO HS Coreg (Carvedilol) 3.125 Mg Tablet 3.125 Mg PO BIDWMEALS Celexa (Citalopram Hydrobromide) 20 Mg Tablet 20 Mg PO DAILY Buspirone Hcl 5 Mg Tablet 5 Mg PO BID Lorazepam 2 Mg/1 Ml Vial 0.5 Ml IM DAILY Aspirin Ec (Aspirin) 81 Mg Tablet.dr 81 Mg PO DAILY Albuterol Sulfate Neb Soln (Albuterol Sulfate) 2.5 Mg/3 Ml Vial.neb 2.5 Mg NEB PRN Q6HRS PRN Aricept (Donepezil Hcl) 10 Mg Tablet 10 Mg PO DAILY I have reviewed the current psychotropics carefully including drug interactions. Risk benefit ratio favors no change other than as noted in my dictated progress note. 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
[2018-11-08 06:46] VITALS: BP 146/82
[2018-11-08] MEDS: PANTOPRAZOLE 40 MG TABLET. PO SCH (07:30)
[2018-11-08] MEDS: CARVEDILOL 3.125 MG TABLET PO SCH ×2 (08:00→16:49)
[2018-11-08] MEDS: ASPIRIN ENTERIC COATED 81 MG TABLET.DR. PO SCH (08:35)
[2018-11-08] MEDS: CITALOPRAM 20 MG TABLET. PO SCH (08:36)
[2018-11-08] MEDS: busPIRone 5 MG TABLET. PO SCH ×2 (08:36→20:38)
[2018-11-08] MEDS: DONEPEZIL HCL 10 MG TABLET PO SCH (08:36)
[2018-11-08] MEDS: CHOLECALCIFEROL (VITAMIN D3) 1,000 UNIT TABLET PO SCH (08:37)
[2018-11-08] MEDS: SIMVASTATIN 20 MG TABLET PO SCH (08:37)
[2018-11-08] MEDS: levETIRAcetam 500 MG TABLET PO SCH ×2 (08:37→20:38)
[2018-11-08] MEDS: ZONISAMIDE 100 MG CAPSULE. PO SCH (08:40)
[2018-11-08] MEDS: LORazepam 0.5 MG TABLET PO SCH (08:40)
[2018-11-08 15:47] VITALS: BP 136/94
[2018-11-08] MEDS: QUEtiapine 50 MG TABLET. PO SCH (20:38)
[2018-11-08] MEDS: MELATONIN 3 MG TABLET PO SCH (20:38)
[2018-11-08] MEDS: QUEtiapine 100 MG TABLET. PO SCH (20:39)
--- NOTE | 2018-11-08 22:26 | PDOC ---
Exam Note: Tiburcio Note: Please also refer to the separate dictated note~for this date of service dictated separately.~Patient seen individually. Discussed the patient with Nursing staff reviewed the chart.~Reviewed interim history and current functioning. Reviewed vital signs,~Labs/ Radiology~and current medications noted below. Continue current treatment with the changes noted in the dictated addendum note Assessment: Vital Signs: Vital Signs Date Time Temp Pulse Resp B/P (MAP) Pulse Ox O2 Delivery O2 Flow Rate FiO2 11/08/18 16:49 84 136/94 11/08/18 15:47 99.1 18 96 11/07/18 06:05 Room Air I&O Intake and Output 11/08/18 07:00 Intake Total 540 ml Balance 540 ml Intake Oral 540 ml # Voids 1 Current Medications: Meds: Current Medications Acetaminophen (Tylenol) 650 mg PRN Q6HRS PRN PO PAIN / TEMP; Start 10/31/18 at 19:15 Multi-Ingredient Ointment (Analgesic [place]) 1 lynsey PRN QID PRN TP MUSCLE PAIN; Start 10/31/18 at 19:15 Al Hydroxide/Mg Hydroxide (Mylanta Plus Xs) 15 ml PRN AFTMEALHC PRN PO DYSPEPSIA; Start 10/31/18 at 19:15 Magnesium Hydroxide (Milk Of Magnesia) 2,400 mg PRN QHS PRN PO CONSTIPATION; Start 10/31/18 at 19:15 Citalopram Hydrobromide (CeleXA) 20 mg DAILY PO Last administered on 11/08/18at 08:36; Start 11/01/18 at 09:00 Lorazepam (Ativan) 1 mg TID PO Last administered on 11/01/18at 10:08; Start 10/31/18 at 21:00; Stop 11/01/18 at 14:25; Status DC Buspirone HCl (Buspar) 5 mg BID PO Last administered on 11/08/18at 20:38; Start 11/01/18 at 09:00 Donepezil HCl (Aricept) 10 mg DAILY PO Last administered on 11/08/18 08:36; Start 11/01/18 at 09:00 Melatonin 6 mg QHS PO Last administered on 11/08/18at 20:38; Start 11/01/18 at 21:00 Quetiapine Fumarate (SEROquel) 50 mg QHS PO Last administered on 11/08/18 20:38; Start 10/31/18 at 21:00 Quetiapine Fumarate (SEROquel) 100 mg QHS PO Last administered on 11/08/18 20:39; Start 10/31/18 at 21:00 Albuterol Sulfate (Ventolin) 2.5 mg PRN Q6HRS PRN NEB SHORTNESS OF BREATH Last administered on 11/06/18 06:24; Start 10/31/18 at 20:45 Guaifenesin (Robitussin Dm) 10 ml PRN Q4HRS PRN PO COUGH; Start 10/31/18 at 21:15 Sodium Biphosphate/ Sodium Phosphate (Fleet Adult) 133 ml PRN DAILY PRN RC CONSTIPATION; Start 10/31/18 at 20:45 Nitroglycerin (Nitrostat) 0.4 mg PRN Q5MIN PRN SL CHEST PAIN; Start 10/31/18 at 20:45 Aspirin (Aspirin Enteric Coated) 81 mg DAILYWBKFT PO Last administered on 11/08/18 08:35; Start 11/01/18 at 08:00 Carvedilol (Coreg) 3.125 mg BIDWMEALS PO Last administered on 11/08/18 16:49; Start 11/01/18 at 08:00 Vitamin D (Vitamin D3) 5,000 unit DAILY PO Last administered on 11/08/18 08:37; Start 11/01/18 at 09:00 Levetiracetam (Keppra) 1,000 mg BID PO Last administered on 11/08/18 20:38; Start 11/01/18 at 09:00 Pantoprazole Sodium (Protonix) 40 mg DAILYAC PO Last administered on 11/08/18 07:30; Start 11/01/18 at 07:30 Sennosides (Senna) 8.6 mg PRN BID PRN PO CONSTIPATION; Start 10/31/18 at 21:30 Simvastatin (Zocor) 20 mg DAILY PO Last administered on 11/08/18 08:37; Start 11/01/18 at 09:00 Sodium Chloride (Saline Mist Nasal) 1 lynsey PRN Q6HRS PRN NS NASAL CONGESTION; Start 10/31/18 at 21:30 Non-Formulary Medication (Warfarin Sodium (Coumadin)) 4 mg HS PO ; Start 10/31/18 at 21:00; Stop 11/01/18 at 14:25; Status DC Zonisamide (Zonegran) 100 mg DAILY PO Last administered on 11/08/18at 08:40; Start 11/01/18 at 09:00 Warfarin Sodium (Coumadin Per Physician) 1 each PRN DAILY PRN MC SEE COMMENTS; Start 11/01/18 at 07:15; Stop 11/02/18 at 15:25; Status DC Olanzapine (ZyPREXA ZYDIS) 2.5 mg PRN Q2HR PRN PO PSYCHOSIS; Start 11/01/18 at 12:00 Lorazepam (Ativan) 0.75 mg Taper DAILY PO Last administered on 11/05/18at 08:25; Start 11/02/18 at 09:00; Stop 11/05/18 at 21:45; Status DC Lorazepam (Ativan) 1 mg Taper DAILY@1400 PO Last administered on 11/05/18at 13:37; Start 11/02/18 at 14:00; Stop 11/05/18 at 21:45; Status DC Lorazepam (Ativan) 1 mg Taper QHS PO Last administered on 11/05/18at 20:49; Start 11/01/18 at 21:00; Stop 11/05/18 at 21:45; Status DC Warfarin Sodium (Coumadin) 4 mg DAILY@1600 PO Last administered on 11/01/18at 17:04; Start 11/01/18 at 16:00; Stop 11/02/18 at 15:25; Status DC Lorazepam (Ativan) 0.5 mg TID PO ; Start 11/22/18 at 09:00; Stop 11/22/18 at 09:00; Status DC Lorazepam (Ativan) 0.75 mg DAILY PO Last administered on 11/08/18at 08:40; Start 11/06/18 at 09:00 Lorazepam (Ativan) 1 mg AFTRNOON PO Last administered on 11/07/18at 12:42; Start 11/06/18 at 13:00; Stop 11/08/18 at 12:59; Status DC Lorazepam (Ativan) 0.75 mg PRN QEVNG PRN PO ANXIETY / AGITATION; Start 11/09/18 at 14:00 Lorazepam (Ativan) 1 mg PRN QHS PRN PO ANXIETY / AGITATION; Start 11/06/18 at 23:00 Active Scripts Active Reported Prednisone 10 Mg Tablet 10 Mg PO QSA Take 3 tablets by mouth twice a day for 3 days, then take 2 tablets by mouth twice a day for 3 days, then take 1 tablet by mouth twice a day for 3 days, then take 1 tablet by mouth daily x 3 days, then stop. Zonegran (Zonisamide) 100 Mg Capsule 100 Mg PO DAILY Vitamin D3 (Cholecalciferol (Vitamin D3)) 5,000 Unit Tablet 5,000 Unit PO DAILY Simvastatin 20 Mg Tablet 20 Mg PO DAILY Seroquel (Quetiapine Fumarate) 50 Mg Tablet 50 Mg PO QHS Seroquel (Quetiapine Fumarate) 100 Mg Tablet 100 Mg PO QHS Senna (Sennosides) 8.6 Mg Tablet 8.6 Mg PO PRN Q12HR PRN Omeprazole 20 Mg Tablet.dr 20 Mg PO DAILY [place] (Sodium Chloride) 104 Ml [place] 2 Sprays NS PRN Q6HRS PRN NITROGLYCERIN SubLingual (Nitroglycerin) 0.4 Mg Tab.subl 0.4 Mg SL PRN Q5MIN PRN Melatonin 3 Mg Tablet 6 Mg PO QHS Ativan (Lorazepam) 1 Mg Tablet 1 Mg PO TID Keppra (Levetiracetam) 1,000 Mg Tablet 1,000 Mg PO BID Guaifenesin Dm Syrup (Guaifenesin/Dextromethorphan) 5 Ml Syrup 10 Ml PO PRN Q4HRS PRN Fleet Enema (Na Phos,M-B/Na Phos,Di-Ba) 133 Ml Enema 133 Ml RC PRN DAILY PRN Coumadin (Warfarin Sodium) 4 Mg Tablet 4 Mg PO HS Coreg (Carvedilol) 3.125 Mg Tablet 3.125 Mg PO BIDWMEALS Celexa (Citalopram Hydrobromide) 20 Mg Tablet 20 Mg PO DAILY Buspirone Hcl 5 Mg Tablet 5 Mg PO BID Lorazepam 2 Mg/1 Ml Vial 0.5 Ml IM DAILY Aspirin Ec (Aspirin) 81 Mg Tablet.dr 81 Mg PO DAILY Albuterol Sulfate Neb Soln (Albuterol Sulfate) 2.5 Mg/3 Ml Vial.neb 2.5 Mg NEB PRN Q6HRS PRN Aricept (Donepezil Hcl) 10 Mg Tablet 10 Mg PO DAILY I have reviewed the current psychotropics carefully including drug interactions. Risk benefit ratio favors no change other than as noted in my dictated progress note. 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
[2018-11-09 05:57] VITALS: BP 118/76
[2018-11-09] MEDS: levETIRAcetam 500 MG TABLET PO SCH ×3 (08:30→21:00)
[2018-11-09] MEDS: PANTOPRAZOLE 40 MG TABLET. PO SCH (08:31)
[2018-11-09] MEDS: SIMVASTATIN 20 MG TABLET PO SCH (08:32)
[2018-11-09] MEDS: CHOLECALCIFEROL (VITAMIN D3) 1,000 UNIT TABLET PO SCH (08:32)
[2018-11-09] MEDS: CARVEDILOL 3.125 MG TABLET PO SCH ×2 (08:32→18:20)
[2018-11-09] MEDS: DONEPEZIL HCL 10 MG TABLET PO SCH (08:32)
[2018-11-09] MEDS: busPIRone 5 MG TABLET. PO SCH ×3 (08:32→21:00)
[2018-11-09] MEDS: ASPIRIN ENTERIC COATED 81 MG TABLET.DR. PO SCH (08:32)
[2018-11-09] MEDS: CITALOPRAM 20 MG TABLET. PO SCH (08:32)
[2018-11-09] MEDS: LORazepam 0.5 MG TABLET PO SCH (08:43)
[2018-11-09] MEDS: ZONISAMIDE 100 MG CAPSULE. PO SCH (08:43)
--- NOTE | 2018-11-09 09:19 | RAD ---
Right shoulder, 2 views, 11/09/2018: HISTORY: Fall, pain The scapular Y view is overpenetrated. The bony structures are demineralized. There are mild degenerative changes at the right shoulder. No acute fracture or dislocation is identified. IMPRESSION: No acute bony abnormality is detected. Electronically signed by: Ronni Holguin MD (11/09/2018 9:16 AM) [facility]
[2018-11-09] MEDS ORDERED: LORazepam 1 MG TABLET PO PRN (14:00)
[2018-11-09 16:21] VITALS: BP 139/97
[2018-11-09] MEDS: QUEtiapine 100 MG TABLET. PO SCH ×2 (19:40→21:00)
[2018-11-09] MEDS: MELATONIN 3 MG TABLET PO SCH ×2 (19:41→21:00)
[2018-11-09] MEDS: QUEtiapine 50 MG TABLET. PO SCH ×2 (19:41→21:00)
--- NOTE | 2018-11-09 22:36 | PDOC ---
Exam Note: Tiburcio Note: Please also refer to the separate dictated note~for this date of service dictated separately.~Patient seen individually. Discussed the patient with Nursing staff reviewed the chart.~Reviewed interim history and current functioning. Reviewed vital signs,~Labs/ Radiology~and current medications noted below. Continue current treatment with the changes noted in the dictated addendum note Assessment: Vital Signs: Vital Signs Date Time Temp Pulse Resp B/P (MAP) Pulse Ox O2 Delivery O2 Flow Rate FiO2 11/09/18 18:20 78 130/90 11/09/18 16:21 97.1 16 97 Room Air I&O Intake and Output 11/09/18 06:59 Intake Total 460 ml Balance 460 ml Intake Oral 460 ml # Voids 1 # Bowel Movements 1 Current Medications: Meds: Current Medications Acetaminophen (Tylenol) 650 mg PRN Q6HRS PRN PO PAIN / TEMP; Start 10/31/18 at 19:15 Multi-Ingredient Ointment (Analgesic [place]) 1 lynsey PRN QID PRN TP MUSCLE PAIN; Start 10/31/18 at 19:15 Al Hydroxide/Mg Hydroxide (Mylanta Plus Xs) 15 ml PRN AFTMEALHC PRN PO DYSPEPSIA; Start 10/31/18 at 19:15 Magnesium Hydroxide (Milk Of Magnesia) 2,400 mg PRN QHS PRN PO CONSTIPATION; Start 10/31/18 at 19:15 Citalopram Hydrobromide (CeleXA) 20 mg DAILY PO Last administered on 11/09/18at 08:32; Start 11/01/18 at 09:00 Lorazepam (Ativan) 1 mg TID PO Last administered on 11/01/18at 10:08; Start 10/31/18 at 21:00; Stop 11/01/18 at 14:25; Status DC Buspirone HCl (Buspar) 5 mg BID PO Last administered on 11/09/18at 08:32; Start 11/01/18 at 09:00 Donepezil HCl (Aricept) 10 mg DAILY PO Last administered on 11/09/18at 08:32; S tart 11/01/18 at 09:00 Melatonin 6 mg QHS PO Last administered on 11/08/18at 20:38; Start 11/01/18 at 21:00 Quetiapine Fumarate (SEROquel) 50 mg QHS PO Last administered on 11/08/18 20:38; Start 10/31/18 at 21:00 Quetiapine Fumarate (SEROquel) 100 mg QHS PO Last administered on 11/08/18 20:39; Start 10/31/18 at 21:00 Albuterol Sulfate (Ventolin) 2.5 mg PRN Q6HRS PRN NEB SHORTNESS OF BREATH Last administered on 11/06/18 06:24; Start 10/31/18 at 20:45 Guaifenesin (Robitussin Dm) 10 ml PRN Q4HRS PRN PO COUGH; Start 10/31/18 at 21:15 Sodium Biphosphate/ Sodium Phosphate (Fleet Adult) 133 ml PRN DAILY PRN RC CONSTIPATION; Start 10/31/18 at 20:45 Nitroglycerin (Nitrostat) 0.4 mg PRN Q5MIN PRN SL CHEST PAIN; Start 10/31/18 at 20:45 Aspirin (Aspirin Enteric Coated) 81 mg DAILYWBKFT PO Last administered on 11/09/18 08:32; Start 11/01/18 at 08:00 Carvedilol (Coreg) 3.125 mg BIDWMEALS PO Last administered on 11/09/18 18:20; Start 11/01/18 at 08:00 Vitamin D (Vitamin D3) 5,000 unit DAILY PO Last administered on 11/09/18 08:32; Start 11/01/18 at 09:00 Levetiracetam (Keppra) 1,000 mg BID PO Last administered on 11/09/18 08:30; Start 11/01/18 at 09:00 Pantoprazole Sodium (Protonix) 40 mg DAILYAC PO Last administered on 11/09/18 08:31; Start 11/01/18 at 07:30 Sennosides (Senna) 8.6 mg PRN BID PRN PO CONSTIPATION; Start 10/31/18 at 21:30 Simvastatin (Zocor) 20 mg DAILY PO Last administered on 11/09/18 08:32; Start 11/01/18 at 09:00 Sodium Chloride (Saline Mist Nasal) 1 lynsey PRN Q6HRS PRN NS NASAL CONGESTION; Start 10/31/18 at 21:30 Non-Formulary Medication (Warfarin Sodium (Coumadin)) 4 mg HS PO ; Start 10/31/18 at 21:00; Stop 11/01/18 at 14:25; Status DC Zonisamide (Zonegran) 100 mg DAILY PO Last administered on 11/09/18at 08:43; Start 11/01/18 at 09:00 Warfarin Sodium (Coumadin Per Physician) 1 each PRN DAILY PRN MC SEE COMMENTS; Start 11/01/18 at 07:15; Stop 11/02/18 at 15:25; Status DC Olanzapine (ZyPREXA ZYDIS) 2.5 mg PRN Q2HR PRN PO PSYCHOSIS; Start 11/01/18 at 12:00 Lorazepam (Ativan) 0.75 mg Taper DAILY PO Last administered on 11/05/18at 08:25; Start 11/02/18 at 09:00; Stop 11/05/18 at 21:45; Status DC Lorazepam (Ativan) 1 mg Taper DAILY@1400 PO Last administered on 11/05/18at 13:37; Start 11/02/18 at 14:00; Stop 11/05/18 at 21:45; Status DC Lorazepam (Ativan) 1 mg Taper QHS PO Last administered on 11/05/18at 20:49; Start 11/01/18 at 21:00; Stop 11/05/18 at 21:45; Status DC Warfarin Sodium (Coumadin) 4 mg DAILY@1600 PO Last administered on 11/01/18at 17:04; Start 11/01/18 at 16:00; Stop 11/02/18 at 15:25; Status DC Lorazepam (Ativan) 0.5 mg TID PO ; Start 11/22/18 at 09:00; Stop 11/22/18 at 09:00; Status DC Lorazepam (Ativan) 0.75 mg DAILY PO Last administered on 11/09/18at 08:43; Start 11/06/18 at 09:00 Lorazepam (Ativan) 1 mg AFTRNOON PO Last administered on 11/07/18at 12:42; Start 11/06/18 at 13:00; Stop 11/08/18 at 12:59; Status DC Lorazepam (Ativan) 0.75 mg PRN QEVNG PRN PO ANXIETY / AGITATION; Start 11/09/18 at 14:00 Lorazepam (Ativan) 1 mg PRN QHS PRN PO ANXIETY / AGITATION; Start 11/06/18 at 23:00 Active Scripts Active Reported Prednisone 10 Mg Tablet 10 Mg PO QSA Take 3 tablets by mouth twice a day for 3 days, then take 2 tablets by mouth twice a day for 3 days, then take 1 tablet by mouth twice a day for 3 days, then take 1 tablet by mouth daily x 3 days, then stop. Zonegran (Zonisamide) 100 Mg Capsule 100 Mg PO DAILY Vitamin D3 (Cholecalciferol (Vitamin D3)) 5,000 Unit Tablet 5,000 Unit PO DAILY Simvastatin 20 Mg Tablet 20 Mg PO DAILY Seroquel (Quetiapine Fumarate) 50 Mg Tablet 50 Mg PO QHS Seroquel (Quetiapine Fumarate) 100 Mg Tablet 100 Mg PO QHS Senna (Sennosides) 8.6 Mg Tablet 8.6 Mg PO PRN Q12HR PRN Omeprazole 20 Mg Tablet.dr 20 Mg PO DAILY [place] (Sodium Chloride) 104 Ml [place] 2 Sprays NS PRN Q6HRS PRN NITROGLYCERIN SubLingual (Nitroglycerin) 0.4 Mg Tab.subl 0.4 Mg SL PRN Q5MIN PRN Melatonin 3 Mg Tablet 6 Mg PO QHS Ativan (Lorazepam) 1 Mg Tablet 1 Mg PO TID Keppra (Levetiracetam) 1,000 Mg Tablet 1,000 Mg PO BID Guaifenesin Dm Syrup (Guaifenesin/Dextromethorphan) 5 Ml Syrup 10 Ml PO PRN Q4HRS PRN Fleet Enema (Na Phos,M-B/Na Phos,Di-Ba) 133 Ml Enema 133 Ml RC PRN DAILY PRN Coumadin (Warfarin Sodium) 4 Mg Tablet 4 Mg PO HS Coreg (Carvedilol) 3.125 Mg Tablet 3.125 Mg PO BIDWMEALS Celexa (Citalopram Hydrobromide) 20 Mg Tablet 20 Mg PO DAILY Buspirone Hcl 5 Mg Tablet 5 Mg PO BID Lorazepam 2 Mg/1 Ml Vial 0.5 Ml IM DAILY Aspirin Ec (Aspirin) 81 Mg Tablet.dr 81 Mg PO DAILY Albuterol Sulfate Neb Soln (Albuterol Sulfate) 2.5 Mg/3 Ml Vial.neb 2.5 Mg NEB PRN Q6HRS PRN Aricept (Donepezil Hcl) 10 Mg Tablet 10 Mg PO DAILY I have reviewed the current psychotropics carefully including drug interactions. Risk benefit ratio favors no change other than as noted in my dictated progress note. 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
--- NOTE | 2018-11-10 00:14 | PN ---
DATE: 11/07/2018 PSYCHIATRIC PROGRESS NOTE This late entry 11/07/2018 covers elements not covered in my initial note. SUBJECTIVE: I met with the patient in the evening. The patient slept 6-3/4 hours previous night. She attended some groups in the morning, appears to do better, remains confused, compliant in the morning. In the evening, she was somewhat bent over, slept in the chair, later was tearful. REVIEW OF SYSTEMS: No CV, , pulmonary, eye, ENT system symptoms on review. Reliability poor. MENTAL STATUS EXAM: Oriented to herself. Insight, judgment, recent and remote memory, attention, concentration, fund of knowledge poor, consistent with her diagnosis mentioned in my initial note. PLAN: No change from initial note. MAN Stephanie PYLE MD DR: JASMYN/krissy JOB#: [id number] / [id number]
--- NOTE | 2018-11-10 00:16 | PN ---
DATE: 11/08/2018 PSYCHIATRIC PROGRESS NOTE This late entry 11/08/2018 covers elements not covered in my initial note. SUBJECTIVE: I met with the patient in the evening and staffed at a treatment team meeting with the entire team in the morning. Reviewed the patient's history, diagnosis, progress. The patient's daughter, Alicia, attended the treatment team meeting. We discussed the patient's fall and bruise over the nose and that we are gradually tapering the Ativan given her fall risk. The daughter was concerned about tapering the Ativan because this had failed in the past. The patient is currently on 1 mg 3 times a day Ativan, which we are tapering very gradually and we will see how she does and reassess if it does not work. Appetite 50-75%. She slept 7 hours previous night, somewhat withdrawn, confused, spends time in her room. Previous night, she was resistive to medications and resistive at lunch for her meds and took it later. REVIEW OF SYSTEMS: No CV, , pulmonary, eye, ENT system symptoms on review. Reliability poor. MENTAL STATUS EXAM: Oriented to herself. Insight, judgment, recent and remote memory, attention, concentration, fund of knowledge poor, consistent with her diagnosis mentioned in my initial note. PLAN: No change from initial note and we will taper the Ativan by 0.25 mg every 3 or 4 days and see how she does. MAN Stephanie PYLE MD DR: JASMYN/krissy JOB#: [id number] / [id number]
[2018-11-10 05:59] VITALS: BP 123/82
[2018-11-10] MEDS: PANTOPRAZOLE 40 MG TABLET. PO SCH (08:26)
[2018-11-10] MEDS: ASPIRIN ENTERIC COATED 81 MG TABLET.DR. PO SCH (08:26)
[2018-11-10] MEDS: CARVEDILOL 3.125 MG TABLET PO SCH ×2 (08:27→17:20)
[2018-11-10] MEDS: DONEPEZIL HCL 10 MG TABLET PO SCH (08:27)
[2018-11-10] MEDS: LORazepam 0.5 MG TABLET PO SCH (08:27)
[2018-11-10] MEDS: busPIRone 5 MG TABLET. PO SCH ×2 (08:28→20:05)
[2018-11-10] MEDS: CITALOPRAM 20 MG TABLET. PO SCH (08:28)
[2018-11-10] MEDS: levETIRAcetam 500 MG TABLET PO SCH ×2 (08:28→20:05)
[2018-11-10] MEDS: CHOLECALCIFEROL (VITAMIN D3) 1,000 UNIT TABLET PO SCH (08:29)
[2018-11-10] MEDS: SIMVASTATIN 20 MG TABLET PO SCH (08:29)
[2018-11-10] MEDS: ZONISAMIDE 100 MG CAPSULE. PO SCH (08:42)
--- NOTE | 2018-11-10 16:22 | RAD ---
EXAM: CHEST 1 VIEW History: Wheezes COMPARISON: None available. TECHNIQUE: Single portable radiograph of the chest FINDINGS: Low lung volumes accentuate heart size and pulmonary vascularity. Mild cardiomegaly. Mild bibasilar lung airspace opacities likely atelectasis or infiltrates. IMPRESSION: Mild bibasilar lung airspace opacities likely atelectasis or infiltrates. Electronically signed by: Allen Porter MD (11/10/2018 4:20 PM) [facility]
[2018-11-10 16:47] VITALS: BP 139/81
[2018-11-10] MEDS: QUEtiapine 100 MG TABLET. PO SCH (20:05)
[2018-11-10] MEDS: QUEtiapine 50 MG TABLET. PO SCH (20:05)
[2018-11-10] MEDS: MELATONIN 3 MG TABLET PO SCH (20:06)
--- NOTE | 2018-11-10 22:35 | PDOC ---
Exam Note: Tiburcio Note: Please also refer to the separate dictated note~for this date of service dictated separately.~Patient seen individually. Discussed the patient with Nursing staff reviewed the chart.~Reviewed interim history and current functioning. Reviewed vital signs,~Labs/ Radiology~and current medications noted below. Continue current treatment with the changes noted in the dictated addendum note Assessment: Vital Signs: Vital Signs Date Time Temp Pulse Resp B/P (MAP) Pulse Ox O2 Delivery O2 Flow Rate FiO2 11/10/18 17:20 92 139/81 11/10/18 16:47 98.7 20 97 11/09/18 16:21 Room Air I&O Intake and Output 11/10/18 06:59 Intake Total 960 ml Balance 960 ml Intake Oral 960 ml Current Medications: Meds: Current Medications Acetaminophen (Tylenol) 650 mg PRN Q6HRS PRN PO PAIN / TEMP; Start 10/31/18 at 19:15 Multi-Ingredient Ointment (Analgesic [place]) 1 lynsey PRN QID PRN TP MUSCLE PAIN; Start 10/31/18 at 19:15 Al Hydroxide/Mg Hydroxide (Mylanta Plus Xs) 15 ml PRN AFTMEALHC PRN PO DYSPEPSIA; Start 10/31/18 at 19:15 Magnesium Hydroxide (Milk Of Magnesia) 2,400 mg PRN QHS PRN PO CONSTIPATION; Start 10/31/18 at 19:15 Citalopram Hydrobromide (CeleXA) 20 mg DAILY PO Last administered on 11/10/18at 08:28; Start 11/01/18 at 09:00 Lorazepam (Ativan) 1 mg TID PO Last administered on 11/01/18at 10:08; Start 10/31/18 at 21:00; Stop 11/01/18 at 14:25; Status DC Buspirone HCl (Buspar) 5 mg BID PO Last administered on 11/10/18at 20:05; Start 11/01/18 at 09:00 Donepezil HCl (Aricept) 10 mg DAILY PO Last administered on 11/10/18at 08:27; Start 11/01/18 at 09:00 Melatonin 6 mg QHS PO Last administered on 11/10/18at 20:06; Start 11/01/18 at 21:00 Quetiapine Fumarate (SEROquel) 50 mg QHS PO Last administered on 11/10/18 20:05; Start 10/31/18 at 21:00 Quetiapine Fumarate (SEROquel) 100 mg QHS PO Last administered on 11/10/18 20:05; Start 10/31/18 at 21:00 Albuterol Sulfate (Ventolin) 2.5 mg PRN Q6HRS PRN NEB SHORTNESS OF BREATH Last administered on 11/06/18at 06:24; Start 10/31/18 at 20:45 Guaifenesin (Robitussin Dm) 10 ml PRN Q4HRS PRN PO COUGH; Start 10/31/18 at 21:15 Sodium Biphosphate/ Sodium Phosphate (Fleet Adult) 133 ml PRN DAILY PRN RC CONSTIPATION; Start 10/31/18 at 20:45 Nitroglycerin (Nitrostat) 0.4 mg PRN Q5MIN PRN SL CHEST PAIN; Start 10/31/18 at 20:45 Aspirin (Aspirin Enteric Coated) 81 mg DAILYWBKFT PO Last administered on 11/10/18 08:26; Start 11/01/18 at 08:00 Carvedilol (Coreg) 3.125 mg BIDWMEALS PO Last administered on 11/10/18 17:20; Start 11/01/18 at 08:00 Vitamin D (Vitamin D3) 5,000 unit DAILY PO Last administered on 11/10/18 08:29; Start 11/01/18 at 09:00 Levetiracetam (Keppra) 1,000 mg BID PO Last administered on 11/10/18 20:05; Start 11/01/18 at 09:00 Pantoprazole Sodium (Protonix) 40 mg DAILYAC PO Last administered on 11/10/18 08:26; Start 11/01/18 at 07:30 Sennosides (Senna) 8.6 mg PRN BID PRN PO CONSTIPATION; Start 10/31/18 at 21:30 Simvastatin (Zocor) 20 mg DAILY PO Last administered on 11/10/18 08:29; Start 11/01/18 at 09:00 Sodium Chloride (Saline Mist Nasal) 1 lynsey PRN Q6HRS PRN NS NASAL CONGESTION; Start 10/31/18 at 21:30 Non-Formulary Medication (Warfarin Sodium (Coumadin)) 4 mg HS PO ; Start 10/31/18 at 21:00; Stop 11/01/18 at 14:25; Status DC Zonisamide (Zonegran) 100 mg DAILY PO Last administered on 11/10/18at 08:42; Start 11/01/18 at 09:00 Warfarin Sodium (Coumadin Per Physician) 1 each PRN DAILY PRN MC SEE COMMENTS; Start 11/01/18 at 07:15; Stop 11/02/18 at 15:25; Status DC Olanzapine (ZyPREXA ZYDIS) 2.5 mg PRN Q2HR PRN PO PSYCHOSIS; Start 11/01/18 at 12:00 Lorazepam (Ativan) 0.75 mg Taper DAILY PO Last administered on 11/05/18at 08:25; Start 11/02/18 at 09:00; Stop 11/05/18 at 21:45; Status DC Lorazepam (Ativan) 1 mg Taper DAILY@1400 PO Last administered on 11/05/18at 13:37; Start 11/02/18 at 14:00; Stop 11/05/18 at 21:45; Status DC Lorazepam (Ativan) 1 mg Taper QHS PO Last administered on 11/05/18at 20:49; Start 11/01/18 at 21:00; Stop 11/05/18 at 21:45; Status DC Warfarin Sodium (Coumadin) 4 mg DAILY@1600 PO Last administered on 11/01/18at 17:04; Start 11/01/18 at 16:00; Stop 11/02/18 at 15:25; Status DC Lorazepam (Ativan) 0.5 mg TID PO ; Start 11/22/18 at 09:00; Stop 11/22/18 at 09:00; Status DC Lorazepam (Ativan) 0.75 mg DAILY PO Last administered on 11/10/18at 08:27; Start 11/06/18 at 09:00 Lorazepam (Ativan) 1 mg AFTRNOON PO Last administered on 11/07/18at 12:42; Start 11/06/18 at 13:00; Stop 11/08/18 at 12:59; Status DC Lorazepam (Ativan) 0.75 mg PRN QEVNG PRN PO ANXIETY / AGITATION; Start 11/09/18 at 14:00 Lorazepam (Ativan) 1 mg PRN QHS PRN PO ANXIETY / AGITATION; Start 11/06/18 at 23:00 Albuterol/ Ipratropium (Duoneb) 3 ml RTQID NEB ; Start 11/10/18 at 20:00 Active Scripts Active Reported Prednisone 10 Mg Tablet 10 Mg PO QSA Take 3 tablets by mouth twice a day for 3 days, then take 2 tablets by mouth twice a day for 3 days, then take 1 tablet by mouth twice a day for 3 days, then take 1 tablet by mouth daily x 3 days, then stop. Zonegran (Zonisamide) 100 Mg Capsule 100 Mg PO DAILY Vitamin D3 (Cholecalciferol (Vitamin D3)) 5,000 Unit Tablet 5,000 Unit PO DAILY Simvastatin 20 Mg Tablet 20 Mg PO DAILY Seroquel (Quetiapine Fumarate) 50 Mg Tablet 50 Mg PO QHS Seroquel (Quetiapine Fumarate) 100 Mg Tablet 100 Mg PO QHS Senna (Sennosides) 8.6 Mg Tablet 8.6 Mg PO PRN Q12HR PRN Omeprazole 20 Mg Tablet.dr 20 Mg PO DAILY [place] (Sodium Chloride) 104 Ml [place] 2 Sprays NS PRN Q6HRS PRN NITROGLYCERIN SubLingual (Nitroglycerin) 0.4 Mg Tab.subl 0.4 Mg SL PRN Q5MIN PRN Melatonin 3 Mg Tablet 6 Mg PO QHS Ativan (Lorazepam) 1 Mg Tablet 1 Mg PO TID Keppra (Levetiracetam) 1,000 Mg Tablet 1,000 Mg PO BID Guaifenesin Dm Syrup (Guaifenesin/Dextromethorphan) 5 Ml Syrup 10 Ml PO PRN Q4HRS PRN Fleet Enema (Na Phos,M-B/Na Phos,Di-Ba) 133 Ml Enema 133 Ml RC PRN DAILY PRN Coumadin (Warfarin Sodium) 4 Mg Tablet 4 Mg PO HS Coreg (Carvedilol) 3.125 Mg Tablet 3.125 Mg PO BIDWMEALS Celexa (Citalopram Hydrobromide) 20 Mg Tablet 20 Mg PO DAILY Buspirone Hcl 5 Mg Tablet 5 Mg PO BID Lorazepam 2 Mg/1 Ml Vial 0.5 Ml IM DAILY Aspirin Ec (Aspirin) 81 Mg Tablet.dr 81 Mg PO DAILY Albuterol Sulfate Neb Soln (Albuterol Sulfate) 2.5 Mg/3 Ml Vial.neb 2.5 Mg NEB PRN Q6HRS PRN Aricept (Donepezil Hcl) 10 Mg Tablet 10 Mg PO DAILY I have reviewed the current psychotropics carefully including drug interactions. Risk benefit ratio favors no change other than as noted in my dictated progress note. 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
[2018-11-10] MEDS: IPRATRPIUM/ALBUTEROL 0.5/2.5MG 3 ML NEBU. NEB SCH (23:05)
[2018-11-11] MEDS: IPRATRPIUM/ALBUTEROL 0.5/2.5MG 3 ML NEBU. NEB SCH ×4 (05:00→20:22)
[2018-11-11 06:20] VITALS: BP 125/72
[2018-11-11] MEDS: ASPIRIN ENTERIC COATED 81 MG TABLET.DR. PO SCH (08:02)
[2018-11-11] MEDS: PANTOPRAZOLE 40 MG TABLET. PO SCH (08:02)
[2018-11-11] MEDS: CARVEDILOL 3.125 MG TABLET PO SCH ×2 (08:03→16:53)
[2018-11-11] MEDS: busPIRone 5 MG TABLET. PO SCH ×2 (08:04→19:49)
[2018-11-11] MEDS: DONEPEZIL HCL 10 MG TABLET PO SCH (08:04)
[2018-11-11] MEDS: CITALOPRAM 20 MG TABLET. PO SCH (08:04)
[2018-11-11] MEDS: levETIRAcetam 500 MG TABLET PO SCH ×2 (08:05→19:49)
[2018-11-11] MEDS: CHOLECALCIFEROL (VITAMIN D3) 1,000 UNIT TABLET PO SCH (08:05)
[2018-11-11] MEDS: SIMVASTATIN 20 MG TABLET PO SCH (08:05)
[2018-11-11] MEDS: ZONISAMIDE 100 MG CAPSULE. PO SCH (08:06)
[2018-11-11] MEDS: LORazepam 0.5 MG TABLET PO SCH (08:08)
[2018-11-11 16:17] VITALS: BP 110/61
[2018-11-11] MEDS: QUEtiapine 100 MG TABLET. PO SCH (19:49)
[2018-11-11] MEDS: QUEtiapine 50 MG TABLET. PO SCH (19:49)
[2018-11-11] MEDS: MELATONIN 3 MG TABLET PO SCH (19:49)
--- NOTE | 2018-11-11 22:39 | PDOC ---
Exam Note: Tiburcio Note: Please also refer to the separate dictated note~for this date of service dictated separately.~Patient seen individually. Discussed the patient with Nursing staff reviewed the chart.~Reviewed interim history and current functioning. Reviewed vital signs,~Labs/ Radiology~and current medications noted below. Continue current treatment with the changes noted in the dictated addendum note Assessment: Vital Signs: Vital Signs Date Time Temp Pulse Resp B/P (MAP) Pulse Ox O2 Delivery O2 Flow Rate FiO2 11/11/18 20:23 97 Room Air 11/11/18 16:53 84 110/61 11/11/18 16:17 98.0 20 I&O Intake and Output 11/11/18 06:59 Intake Total 1200 ml Balance 1200 ml Intake Oral 1200 ml # Voids 1 # Bowel Movements 5 Current Medications: Meds: Current Medications Acetaminophen (Tylenol) 650 mg PRN Q6HRS PRN PO PAIN / TEMP; Start 10/31/18 at 19:15 Multi-Ingredient Ointment (Analgesic [place]) 1 [place]sey PRN QID PRN TP MUSCLE PAIN; Start 10/31/18 at 19:15 Al Hydroxide/Mg Hydroxide (Mylanta Plus Xs) 15 ml PRN AFTMEALHC PRN PO DYSPEPSIA; Start 10/31/18 at 19:15 Magnesium Hydroxide (Milk Of Magnesia) 2,400 mg PRN QHS PRN PO CONSTIPATION; Start 10/31/18 at 19:15 Citalopram Hydrobromide (CeleXA) 20 mg DAILY PO Last administered on 11/11/18at 08:04; Start 11/01/18 at 09:00 Lorazepam (Ativan) 1 mg TID PO Last administered on 11/01/18at 10:08; Start 10/31/18 at 21:00; Stop 11/01/18 at 14:25; Status DC Buspirone HCl (Buspar) 5 mg BID PO Last administered on 11/11/18at 19:49; Start 11/01/18 at 09:00 Donepezil HCl (Aricept) 10 mg DAILY PO Last administered on 11/11/18at 08:04; Start 11/01/18 at 09:00 Melatonin 6 mg QHS PO Last administered on 11/11/18at 19:49; Start 11/01/18 at 21:00 Quetiapine Fumarate (SEROquel) 50 mg QHS PO Last administered on 11/11/18 19:49; Start 10/31/18 at 21:00 Quetiapine Fumarate (SEROquel) 100 mg QHS PO Last administered on 11/11/18 19:49; Start 10/31/18 at 21:00 Albuterol Sulfate (Ventolin) 2.5 mg PRN Q6HRS PRN NEB SHORTNESS OF BREATH Last administered on 11/06/18at 06:24; Start 10/31/18 at 20:45 Guaifenesin (Robitussin Dm) 10 ml PRN Q4HRS PRN PO COUGH; Start 10/31/18 at 21:15 Sodium Biphosphate/ Sodium Phosphate (Fleet Adult) 133 ml PRN DAILY PRN RC CONSTIPATION; Start 10/31/18 at 20:45 Nitroglycerin (Nitrostat) 0.4 mg PRN Q5MIN PRN SL CHEST PAIN; Start 10/31/18 at 20:45 Aspirin (Aspirin Enteric Coated) 81 mg DAILYWBKFT PO Last administered on 11/11/18 08:02; Start 11/01/18 at 08:00 Carvedilol (Coreg) 3.125 mg BIDWMEALS PO Last administered on 11/11/18 16:53; Start 11/01/18 at 08:00 Vitamin D (Vitamin D3) 5,000 unit DAILY PO Last administered on 11/11/18 08:05; Start 11/01/18 at 09:00 Levetiracetam (Keppra) 1,000 mg BID PO Last administered on 11/11/18 19:49; Start 11/01/18 at 09:00 Pantoprazole Sodium (Protonix) 40 mg DAILYAC PO Last administered on 11/11/18 08:02; Start 11/01/18 at 07:30 Sennosides (Senna) 8.6 mg PRN BID PRN PO CONSTIPATION; Start 10/31/18 at 21:30 Simvastatin (Zocor) 20 mg DAILY PO Last administered on 11/11/18 08:05; Start 11/01/18 at 09:00 Sodium Chloride (Saline Mist Nasal) 1 [place] PRN Q6HRS PRN NS NASAL CONGESTION; Start 10/31/18 at 21:30 Non-Formulary Medication (Warfarin Sodium (Coumadin)) 4 mg HS PO ; Start 10/31/18 at 21:00; Stop 11/01/18 at 14:25; Status DC Zonisamide (Zonegran) 100 mg DAILY PO Last administered on 11/11/18at 08:06; Start 11/01/18 at 09:00 Warfarin Sodium (Coumadin Per Physician) 1 each PRN DAILY PRN MC SEE COMMENTS; Start 11/01/18 at 07:15; Stop 11/02/18 at 15:25; Status DC Olanzapine (ZyPREXA ZYDIS) 2.5 mg PRN Q2HR PRN PO PSYCHOSIS; Start 11/01/18 at 12:00 Lorazepam (Ativan) 0.75 mg Taper DAILY PO Last administered on 11/05/18at 08:25; Start 11/02/18 at 09:00; Stop 11/05/18 at 21:45; Status DC Lorazepam (Ativan) 1 mg Taper DAILY@1400 PO Last administered on 11/05/18at 13:37; Start 11/02/18 at 14:00; Stop 11/05/18 at 21:45; Status DC Lorazepam (Ativan) 1 mg Taper QHS PO Last administered on 11/05/18at 20:49; Start 11/01/18 at 21:00; Stop 11/05/18 at 21:45; Status DC Warfarin Sodium (Coumadin) 4 mg DAILY@1600 PO Last administered on 11/01/18at 17:04; Start 11/01/18 at 16:00; Stop 11/02/18 at 15:25; Status DC Lorazepam (Ativan) 0.5 mg TID PO ; Start 11/22/18 at 09:00; Stop 11/22/18 at 09:00; Status DC Lorazepam (Ativan) 0.75 mg DAILY PO Last administered on 11/11/18 08:08; Start 11/06/18 at 09:00 Lorazepam (Ativan) 1 mg AFTRNOON PO Last administered on 11/07/18at 12:42; Start 11/06/18 at 13:00; Stop 11/08/18 at 12:59; Status DC Lorazepam (Ativan) 0.75 mg PRN QEVNG PRN PO ANXIETY / AGITATION; Start 11/09/18 at 14:00 Lorazepam (Ativan) 1 mg PRN QHS PRN PO ANXIETY / AGITATION; Start 11/06/18 at 23:00 Albuterol/ Ipratropium (Duoneb) 3 ml RTQID NEB Last administered on 11/11/18at 20:22; Start 11/10/18 at 20:00 Active Scripts Active Reported Prednisone 10 Mg Tablet 10 Mg PO QSA Take 3 tablets by mouth twice a day for 3 days, then take 2 tablets by mouth twice a day for 3 days, then take 1 tablet by mouth twice a day for 3 days, then take 1 tablet by mouth daily x 3 days, then stop. Zonegran (Zonisamide) 100 Mg Capsule 100 Mg PO DAILY Vitamin D3 (Cholecalciferol (Vitamin D3)) 5,000 Unit Tablet 5,000 Unit PO DAILY Simvastatin 20 Mg Tablet 20 Mg PO DAILY Seroquel (Quetiapine Fumarate) 50 Mg Tablet 50 Mg PO QHS Seroquel (Quetiapine Fumarate) 100 Mg Tablet 100 Mg PO QHS [place] (Sennosides) 8.6 Mg Tablet 8.6 Mg PO PRN Q12HR PRN Omeprazole 20 Mg Tablet.dr 20 Mg PO DAILY [place] (Sodium Chloride) 104 Ml [place] 2 Sprays NS PRN Q6HRS PRN NITROGLYCERIN SubLingual (Nitroglycerin) 0.4 Mg Tab.subl 0.4 Mg SL PRN Q5MIN PRN Melatonin 3 Mg Tablet 6 Mg PO QHS Ativan (Lorazepam) 1 Mg Tablet 1 Mg PO TID Keppra (Levetiracetam) 1,000 Mg Tablet 1,000 Mg PO BID Guaifenesin Dm Syrup (Guaifenesin/Dextromethorphan) 5 Ml Syrup 10 Ml PO PRN Q4HRS PRN Fleet Enema (Na Phos,M-B/Na Phos,Di-Ba) 133 Ml Enema 133 Ml RC PRN DAILY PRN Coumadin (Warfarin Sodium) 4 Mg Tablet 4 Mg PO HS Coreg (Carvedilol) 3.125 Mg Tablet 3.125 Mg PO BIDWMEALS Celexa (Citalopram Hydrobromide) 20 Mg Tablet 20 Mg PO DAILY Buspirone Hcl 5 Mg Tablet 5 Mg PO BID Lorazepam 2 Mg/1 Ml Vial 0.5 Ml IM DAILY Aspirin Ec (Aspirin) 81 Mg Tablet. 81 Mg PO DAILY Albuterol Sulfate Neb Soln (Albuterol Sulfate) 2.5 Mg/3 Ml Vial.neb 2.5 Mg NEB PRN Q6HRS PRN Aricept (Donepezil Hcl) 10 Mg Tablet 10 Mg PO DAILY I have reviewed the current psychotropics carefully including drug interactions. Risk benefit ratio favors no change other than as noted in my dictated progress note. 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
[2018-11-12] MEDS: IPRATRPIUM/ALBUTEROL 0.5/2.5MG 3 ML NEBU. NEB SCH ×4 (05:13→20:54)
--- NOTE | 2018-11-12 06:17 | PN ---
DATE: 11/09/2018 PSYCHIATRIC PROGRESS NOTE This late entry 11/09/2018 covers elements not covered in my initial note. SUBJECTIVE: I met with the patient in the evening. The patient slept 7-3/4 hours previous night. She had a good day, somewhat sedated at times, took 1-hour nap before lunch. She was in the quiet room since the fall, somewhat drowsy at times, but CT head was unremarkable. REVIEW OF SYSTEMS: No CV, , pulmonary, eye, ENT system symptoms on review. Reliability poor. MENTAL STATUS EXAM: Oriented to herself. Insight, judgment, recent and remote memory, attention, concentration, fund of knowledge poor, consistent with her diagnosis mentioned in my initial note. PLAN: No change from initial note. MAN Stephanie PYLE MD DR: [email or web address]/[email or web address] JOB#: [id number] / [id number]
[2018-11-12 06:23] VITALS: BP 118/79
--- NOTE | 2018-11-12 07:16 | PN ---
DATE: 11/10/2018 PSYCHIATRIC PROGRESS NOTE This late entry 11/10/2018 covers elements not covered in my initial note. SUBJECTIVE: I met with the patient in the evening of 11/10/2018. The patient slept 8-3/4 hours previous night. She remains confused, withdrawn, meds and ADL compliant, tearful. She fell on 11/07/2018, sleeping off and on during the day on 11/10/2018, upset after dinner, resistive. REVIEW OF SYSTEMS: No CV, , pulmonary, eye, ENT system symptoms on review. Reliability poor. MENTAL STATUS EXAM: Oriented to herself. Insight, judgment, recent and remote memory, attention, concentration, fund of knowledge poor, consistent with her diagnosis mentioned in my initial note. PLAN: No change from initial note. MAN Stephanie PYLE MD DR: JASMYN/krissy JOB#: [id number] / [id number]
[2018-11-12 07:27] LABS: BASO % 1 % (0-3); EOS # 0.3 x10^3/uL (0.0-0.7); EOS % 7 % (0-3); HEMATOCRIT 35.6 % (36.0-47.0); LYMPH # 1.4 x10^3/uL (1.0-4.8); LYMPH % 28 % (24-48); MEAN CORPUSCULAR HEMOGLOBIN 33 pg (25-35); MEAN CORPUSCULAR HGB CONC 34 g/dL (31-37); MEAN CORPUSCULAR VOLUME 99 fL (79-100); MONO # 0.4 x10^3/uL (0.0-1.1); MONO % 9 % (0-9); NEUT # 2.7 x10^3uL (1.8-7.7); NEUT % 55 % (31-73); PLATELET COUNT 124 x10^3/uL (140-400); RED BLOOD COUNT 3.61 x10^6/uL (3.50-5.40); WHITE BLOOD COUNT 4.9 x10^3/uL (4.0-11.0)
[2018-11-12 07:41] LABS: ALBUMIN 2.8 g/dL (3.4-5.0); ALBUMIN/GLOBULIN RATIO 1.1 (1.0-1.7); CALCIUM 8.5 mg/dL (8.5-10.1); CREATININE 1.1 mg/dL (0.6-1.0); GFR 47.1; POTASSIUM 4.1 mmol/L (3.5-5.1); TOTAL BILIRUBIN 0.4 mg/dL (0.2-1.0); TOTAL PROTEIN 5.4 g/dL (6.4-8.2)
--- NOTE | 2018-11-12 08:36 | PN ---
DATE: 11/11/2018 PSYCHIATRIC PROGRESS NOTE This note covers elements not covered in my initial note 11/11/2018. SUBJECTIVE: I met with the patient in the evening. The patient slept 7-3/4 hours previous night. She did well at night, resistive to medications during the day today. REVIEW OF SYSTEMS: No CV, , pulmonary, eye, ENT system symptoms on review. Reliability poor. MENTAL STATUS EXAM: Oriented to herself. Insight, judgment, recent and remote memory, attention, concentration, fund of knowledge poor, consistent with her diagnosis. As I met with her, she was quite verbal, anxious, somewhat tearful at times, paranoid. LABORATORY DATA: Reviewed. IMPRESSION: Unchanged from initial note: Major neurocognitive disorder, Alzheimer, vascular with delusion, depression, behavioral disturbance. Rest unchanged. PLAN: Continue current psychotropics. Maintain Seroquel, but we may need to change this to Risperdal if psychosis persists. EMILY PYLE MD DR: JASMYN/krissy JOB#: [id number] / [id number]
[2018-11-12] MEDS: PANTOPRAZOLE 40 MG TABLET. PO SCH (08:59)
[2018-11-12] MEDS: ASPIRIN ENTERIC COATED 81 MG TABLET.DR. PO SCH (08:59)
[2018-11-12] MEDS: CARVEDILOL 3.125 MG TABLET PO SCH ×2 (08:59→17:33)
[2018-11-12] MEDS: levETIRAcetam 500 MG TABLET PO SCH ×2 (09:00→20:25)
[2018-11-12] MEDS: busPIRone 5 MG TABLET. PO SCH ×2 (09:00→20:45)
[2018-11-12] MEDS: CITALOPRAM 20 MG TABLET. PO SCH (09:00)
[2018-11-12] MEDS: LORazepam 0.5 MG TABLET PO SCH ×2 (09:00→10:13)
[2018-11-12] MEDS: DONEPEZIL HCL 10 MG TABLET PO SCH (09:00)
[2018-11-12] MEDS: CHOLECALCIFEROL (VITAMIN D3) 1,000 UNIT TABLET PO SCH (09:01)
[2018-11-12] MEDS: SIMVASTATIN 20 MG TABLET PO SCH (09:01)
[2018-11-12] MEDS: ZONISAMIDE 100 MG CAPSULE. PO SCH (09:51)
[2018-11-12 16:03] VITALS: BP 107/79
[2018-11-12] MEDS: MELATONIN 3 MG TABLET PO SCH (20:25)
[2018-11-12] MEDS: QUEtiapine 50 MG TABLET. PO SCH (20:25)
[2018-11-12] MEDS: QUEtiapine 100 MG TABLET. PO SCH (20:25)
--- NOTE | 2018-11-12 22:22 | PDOC ---
Exam Note: Tiburcio Note: Please also refer to the separate dictated note~for this date of service dictated separately.~Patient seen individually. Discussed the patient with Nursing staff reviewed the chart.~Reviewed interim history and current functioning. Reviewed vital signs,~Labs/ Radiology~and current medications noted below. Continue current treatment with the changes noted in the dictated addendum note Assessment: Vital Signs: Vital Signs Date Time Temp Pulse Resp B/P (MAP) Pulse Ox O2 Delivery O2 Flow Rate FiO2 11/12/18 20:57 95 Room Air 11/12/18 17:33 92 107/79 11/12/18 16:03 98.3 20 I&O Intake and Output 11/12/18 07:00 Intake Total 600 ml Balance 600 ml Intake Oral 600 ml Labs: Laboratory Tests Test 11/12/18 06:46 White Blood Count 4.9 x10^3/uL (4.0-11.0) Red Blood Count 3.61 x10^6/uL (3.50-5.40) Hemoglobin 12.0 g/dL (12.0-15.5) Hematocrit 35.6 % (36.0-47.0) L Mean Corpuscular Volume 99 fL (79-100) Mean Corpuscular Hemoglobin 33 pg (25-35) Mean Corpuscular Hemoglobin Concent 34 g/dL (31-37) Red Cell Distribution Width 14.0 % (11.5-14.5) Platelet Count 124 x10^3/uL (140-400) L Neutrophils (%) (Auto) 55 % (31-73) Lymphocytes (%) (Auto) 28 % (24-48) Monocytes (%) (Auto) 9 % (0-9) Eosinophils (%) (Auto) 7 % (0-3) H Basophils (%) (Auto) 1 % (0-3) Neutrophils # (Auto) 2.7 x10^3uL (1.8-7.7) Lymphocytes # (Auto) 1.4 x10^3/uL (1.0-4.8) Monocytes # (Auto) 0.4 x10^3/uL (0.0-1.1) Eosinophils # (Auto) 0.3 x10^3/uL (0.0-0.7) Basophils # (Auto) 0.0 x10^3/uL (0.0-0.2) Sodium Level 144 mmol/L (136-145) Potassium Level 4.1 mmol/L (3.5-5.1) Chloride Level 108 mmol/L (98-107) H Carbon Dioxide Level 26 mmol/L (21-32) Anion Gap 10 (6-14) Blood Urea Nitrogen 23 mg/dL (7-20) H Creatinine 1.1 mg/dL (0.6-1.0) H Estimated GFR (Cockcroft-Gault) 47.1 BUN/Creatinine Ratio 21 (6-20) H Glucose Level 88 mg/dL (70-99) Calcium Level 8.5 mg/dL (8.5-10.1) Total Bilirubin 0.4 mg/dL (0.2-1.0) Aspartate Amino Transferase (AST) 10 U/L (15-37) L Alanine Aminotransferase (ALT) 14 U/L (14-59) Alkaline Phosphatase 59 U/L (46-116) Total Protein 5.4 g/dL (6.4-8.2) L Albumin 2.8 g/dL (3.4-5.0) L Albumin/Globulin Ratio 1.1 (1.0-1.7) Current Medications: Meds: Current Medications Acetaminophen (Tylenol) 650 mg PRN Q6HRS PRN PO PAIN / TEMP; Start 10/31/18 at 19:15 Multi-Ingredient Ointment (Analgesic [place]) 1 lynsey PRN QID PRN TP MUSCLE PAIN; Start 10/31/18 at 19:15 Al Hydroxide/Mg Hydroxide (Mylanta Plus Xs) 15 ml PRN AFTMEALHC PRN PO DYSPEPSIA; Start 10/31/18 at 19:15 Magnesium Hydroxide (Milk Of Magnesia) 2,400 mg PRN QHS PRN PO CONSTIPATION; Start 10/31/18 at 19:15 Citalopram Hydrobromide (CeleXA) 20 mg DAILY PO Last administered on 11/12/18at 09:00; Start 11/01/18 at 09:00 Lorazepam (Ativan) 1 mg TID PO Last administered on 11/01/18at 10:08; Start 10/31/18 at 21:00; Stop 11/01/18 at 14:25; Status DC Buspirone HCl (Buspar) 5 mg BID PO Last administered on 11/12/18 20:45; Start 11/01/18 at 09:00 Donepezil HCl (Aricept) 10 mg DAILY PO Last administered on 11/12/18 09:00; Start 11/01/18 at 09:00 Melatonin 6 mg QHS PO Last administered on 11/12/18 20:25; Start 11/01/18 at 21:00 Quetiapine Fumarate (SEROquel) 50 mg QHS PO Last administered on 11/12/18 20:25; Start 10/31/18 at 21:00 Quetiapine Fumarate (SEROquel) 100 mg QHS PO Last administered on 11/12/18 20:25; Start 10/31/18 at 21:00 Albuterol Sulfate (Ventolin) 2.5 mg PRN Q6HRS PRN NEB SHORTNESS OF BREATH Last administered on 11/06/18 06:24; Start 10/31/18 at 20:45 Guaifenesin (Robitussin Dm) 10 ml PRN Q4HRS PRN PO COUGH; Start 10/31/18 at 21:15 Sodium Biphosphate/ Sodium Phosphate (Fleet Adult) 133 ml PRN DAILY PRN RC CONSTIPATION; Start 10/31/18 at 20:45 Nitroglycerin (Nitrostat) 0.4 mg PRN Q5MIN PRN SL CHEST PAIN; Start 10/31/18 at 20:45 Aspirin (Aspirin Enteric Coated) 81 mg DAILYWBKFT PO Last administered on 11/12/18 08:59; Start 11/01/18 at 08:00 Carvedilol (Coreg) 3.125 mg BIDWMEALS PO Last administered on 11/12/18 17:33; Start 11/01/18 at 08:00 Vitamin D (Vitamin D3) 5,000 unit DAILY PO Last administered on 11/12/18 09:01; Start 11/01/18 at 09:00 Levetiracetam (Keppra) 1,000 mg BID PO Last administered on 11/12/18 20:25; Start 11/01/18 at 09:00 Pantoprazole Sodium (Protonix) 40 mg DAILYAC PO Last administered on 11/12/18 08:59; Start 11/01/18 at 07:30 Sennosides (Senna) 8.6 mg PRN BID PRN PO CONSTIPATION; Start 10/31/18 at 21:30 Simvastatin (Zocor) 20 mg DAILY PO Last administered on 11/12/18 09:01; Start 11/01/18 at 09:00 Sodium Chloride (Saline Mist Nasal) 1 lynsey PRN Q6HRS PRN NS NASAL CONGESTION; Start 10/31/18 at 21:30 Non-Formulary Medication (Warfarin Sodium (Coumadin)) 4 mg HS PO ; Start 10/31/18 at 21:00; Stop 11/01/18 at 14:25; Status DC Zonisamide (Zonegran) 100 mg DAILY PO Last administered on 11/12/18 09:51; Start 11/01/18 at 09:00 Warfarin Sodium (Coumadin Per Physician) 1 each PRN DAILY PRN MC SEE COMMENTS; Start 11/01/18 at 07:15; Stop 11/02/18 at 15:25; Status DC Olanzapine (ZyPREXA ZYDIS) 2.5 mg PRN Q2HR PRN PO PSYCHOSIS; Start 11/01/18 at 12:00 Lorazepam (Ativan) 0.75 mg Taper DAILY PO Last administered on 11/05/18at 08:25; Start 11/02/18 at 09:00; Stop 11/05/18 at 21:45; Status DC Lorazepam (Ativan) 1 mg Taper DAILY@1400 PO Last administered on 11/05/18at 13:37; Start 11/02/18 at 14:00; Stop 11/05/18 at 21:45; Status DC Lorazepam (Ativan) 1 mg Taper QHS PO Last administered on 11/05/18at 20:49; Start 11/01/18 at 21:00; Stop 11/05/18 at 21:45; Status DC Warfarin Sodium (Coumadin) 4 mg DAILY@1600 PO Last administered on 11/01/18at 17:04; Start 11/01/18 at 16:00; Stop 11/02/18 at 15:25; Status DC Lorazepam (Ativan) 0.5 mg TID PO ; Start 11/22/18 at 09:00; Stop 11/22/18 at 09:00; Status DC Lorazepam (Ativan) 0.75 mg DAILY PO Last administered on 6/2/19at 08:08; Start 11/06/18 at 09:00; Stop 11/12/18 at 16:57; Status DC Lorazepam (Ativan) 1 mg AFTRNOON PO Last administered on 11/07/18at 12:42; Start 11/06/18 at 13:00; Stop 11/08/18 at 12:59; Status DC Lorazepam (Ativan) 0.75 mg PRN QEVNG PRN PO ANXIETY / AGITATION; Start 11/09/18 at 14:00 Lorazepam (Ativan) 1 mg PRN QHS PRN PO ANXIETY / AGITATION; Start 11/06/18 at 23:00 Albuterol/ Ipratropium (Duoneb) 3 ml RTQID NEB Last administered on 11/12/18at 20:54; Start 11/10/18 at 20:00 Lorazepam (Ativan) 0.5 mg DAILY PO ; Start 11/13/18 at 09:00 Active Scripts Active Reported Prednisone 10 Mg Tablet 10 Mg PO QSA Take 3 tablets by mouth twice a day for 3 days, then take 2 tablets by mouth twice a day for 3 days, then take 1 tablet by mouth twice a day for 3 days, then take 1 tablet by mouth daily x 3 days, then stop. Zonegran (Zonisamide) 100 Mg Capsule 100 Mg PO DAILY Vitamin D3 (Cholecalciferol (Vitamin D3)) 5,000 Unit Tablet 5,000 Unit PO DAILY Simvastatin 20 Mg Tablet 20 Mg PO DAILY Seroquel (Quetiapine Fumarate) 50 Mg Tablet 50 Mg PO QHS Seroquel (Quetiapine Fumarate) 100 Mg Tablet 100 Mg PO QHS Senna (Sennosides) 8.6 Mg Tablet 8.6 Mg PO PRN Q12HR PRN Omeprazole 20 Mg Tablet.dr 20 Mg PO DAILY [place] (Sodium Chloride) 104 Ml [place] 2 Sprays NS PRN Q6HRS PRN NITROGLYCERIN SubLingual (Nitroglycerin) 0.4 Mg Tab.subl 0.4 Mg SL PRN Q5MIN PRN Melatonin 3 Mg Tablet 6 Mg PO QHS Ativan (Lorazepam) 1 Mg Tablet 1 Mg PO TID Keppra (Levetiracetam) 1,000 Mg Tablet 1,000 Mg PO BID Guaifenesin Dm Syrup (Guaifenesin/Dextromethorphan) 5 Ml Syrup 10 Ml PO PRN Q4HRS PRN Fleet Enema (Na Phos,M-B/Na Phos,Di-Ba) 133 Ml Enema 133 Ml RC PRN DAILY PRN Coumadin (Warfarin Sodium) 4 Mg Tablet 4 Mg PO HS Coreg (Carvedilol) 3.125 Mg Tablet 3.125 Mg PO BIDWMEALS Celexa (Citalopram Hydrobromide) 20 Mg Tablet 20 Mg PO DAILY Buspirone Hcl 5 Mg Tablet 5 Mg PO BID Lorazepam 2 Mg/1 Ml Vial 0.5 Ml IM DAILY Aspirin Ec (Aspirin) 81 Mg Tablet.dr 81 Mg PO DAILY Albuterol Sulfate Neb Soln (Albuterol Sulfate) 2.5 Mg/3 Ml Vial.neb 2.5 Mg NEB PRN Q6HRS PRN Aricept (Donepezil Hcl) 10 Mg Tablet 10 Mg PO DAILY I have reviewed the current psychotropics carefully including drug interactions. Risk benefit ratio favors no change other than as noted in my dictated progress note. 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
[2018-11-13] MEDS: IPRATRPIUM/ALBUTEROL 0.5/2.5MG 3 ML NEBU. NEB SCH ×4 (05:25→20:45)
[2018-11-13 05:44] VITALS: BP 144/93
[2018-11-13] MEDS: busPIRone 5 MG TABLET. PO SCH ×2 (08:29→18:36)
[2018-11-13] MEDS: ASPIRIN ENTERIC COATED 81 MG TABLET.DR. PO SCH (08:29)
[2018-11-13] MEDS: levETIRAcetam 500 MG TABLET PO SCH ×2 (08:30→18:36)
[2018-11-13] MEDS: DONEPEZIL HCL 10 MG TABLET PO SCH (08:30)
[2018-11-13] MEDS: SIMVASTATIN 20 MG TABLET PO SCH (08:30)
[2018-11-13] MEDS: CITALOPRAM 20 MG TABLET. PO SCH (08:30)
[2018-11-13] MEDS: CHOLECALCIFEROL (VITAMIN D3) 1,000 UNIT TABLET PO SCH (08:30)
[2018-11-13] MEDS: CARVEDILOL 3.125 MG TABLET PO SCH ×2 (08:30→16:56)
[2018-11-13] MEDS: PANTOPRAZOLE 40 MG TABLET. PO SCH (08:32)
[2018-11-13] MEDS: ZONISAMIDE 100 MG CAPSULE. PO SCH (08:32)
[2018-11-13] MEDS: LORazepam 0.5 MG TABLET PO SCH (08:32)
[2018-11-13 16:28] VITALS: BP 136/84
[2018-11-13] MEDS: MELATONIN 3 MG TABLET PO SCH (18:36)
[2018-11-13] MEDS: QUEtiapine 50 MG TABLET. PO SCH (18:36)
[2018-11-13] MEDS: QUEtiapine 100 MG TABLET. PO SCH (18:36)
--- NOTE | 2018-11-13 22:01 | PN ---
DATE: 11/12/2018 PSYCHIATRIC PROGRESS NOTE This late entry 11/12/2018 covers elements not covered in my initial note. SUBJECTIVE: I met with the patient in the evening. The patient slept 7-1/2 hours previous night. She is confused, drowsy. REVIEW OF SYSTEMS: No CV, , pulmonary, eye, ENT system symptoms on review. Reliability poor. MENTAL STATUS EXAM: Oriented to herself. Insight, judgment, recent and remote memory, attention, concentration, fund of knowledge poor, consistent with her diagnosis mentioned in my initial note. PLAN: No change from initial note, but we will reduce the Ativan from 0.75 mg daily down to 0.5 mg daily. Rest unchanged. MAN Stephanie PYLE MD DR: JASMYN/krissy JOB#: [id number] / [id number]
--- NOTE | 2018-11-13 22:39 | PDOC ---
Exam Note: Tiburcio Note: Please also refer to the separate dictated note~for this date of service dictated separately.~Patient seen individually. Discussed the patient with Nursing staff reviewed the chart.~Reviewed interim history and current functioning. Reviewed vital signs,~Labs/ Radiology~and current medications noted below. Continue current treatment with the changes noted in the dictated addendum note Assessment: Vital Signs: Vital Signs Date Time Temp Pulse Resp B/P (MAP) Pulse Ox O2 Delivery O2 Flow Rate FiO2 11/13/18 20:47 96 Room Air 11/13/18 16:56 75 136/84 11/13/18 16:28 97.8 18 I&O Intake and Output 11/13/18 06:59 Intake Total 740 ml Balance 740 ml Intake Oral 740 ml # Voids 1 Current Medications: Meds: Current Medications Acetaminophen (Tylenol) 650 mg PRN Q6HRS PRN PO PAIN / TEMP; Start 10/31/18 at 19:15 Multi-Ingredient Ointment (Analgesic [place]) 1 lynsey PRN QID PRN TP MUSCLE PAIN; Start 10/31/18 at 19:15 Al Hydroxide/Mg Hydroxide (Mylanta Plus Xs) 15 ml PRN AFTMEALHC PRN PO DYSPEPSIA; Start 10/31/18 at 19:15 Magnesium Hydroxide (Milk Of Magnesia) 2,400 mg PRN QHS PRN PO CONSTIPATION; Start 10/31/18 at 19:15 Citalopram Hydrobromide (CeleXA) 20 mg DAILY PO Last administered on 11/13/18at 08:30; Start 11/01/18 at 09:00 Lorazepam (Ativan) 1 mg TID PO Last administered on 11/01/18at 10:08; Start 10/31/18 at 21:00; Stop 11/01/18 at 14:25; Status DC Buspirone HCl (Buspar) 5 mg BID PO Last administered on 11/13/18at 18:36; Start 11/01/18 at 09:00 Donepezil HCl (Aricept) 10 mg DAILY PO Last administered on 11/13/18 08:30; Start 11/01/18 at 09:00 Melatonin 6 mg QHS PO Last administered on 11/13/18at 18:36; Start 11/01/18 at 21:00 Quetiapine Fumarate (SEROquel) 50 mg QHS PO Last administered on 11/13/18 18:36; Start 10/31/18 at 21:00 Quetiapine Fumarate (SEROquel) 100 mg QHS PO Last administered on 11/13/18 18:36; Start 10/31/18 at 21:00 Albuterol Sulfate (Ventolin) 2.5 mg PRN Q6HRS PRN NEB SHORTNESS OF BREATH Last administered on 11/06/18 06:24; Start 10/31/18 at 20:45 Guaifenesin (Robitussin Dm) 10 ml PRN Q4HRS PRN PO COUGH; Start 10/31/18 at 21:15 Sodium Biphosphate/ Sodium Phosphate (Fleet Adult) 133 ml PRN DAILY PRN RC CONSTIPATION; Start 10/31/18 at 20:45 Nitroglycerin (Nitrostat) 0.4 mg PRN Q5MIN PRN SL CHEST PAIN; Start 10/31/18 at 20:45 Aspirin (Aspirin Enteric Coated) 81 mg DAILYWBKFT PO Last administered on 11/13/18 08:29; Start 11/01/18 at 08:00 Carvedilol (Coreg) 3.125 mg BIDWMEALS PO Last administered on 11/13/18 16:56; Start 11/01/18 at 08:00 Vitamin D (Vitamin D3) 5,000 unit DAILY PO Last administered on 11/13/18 08:30; Start 11/01/18 at 09:00 Levetiracetam (Keppra) 1,000 mg BID PO Last administered on 11/13/18 18:36; Start 11/01/18 at 09:00 Pantoprazole Sodium (Protonix) 40 mg DAILYAC PO Last administered on 11/13/18 08:32; Start 11/01/18 at 07:30 Sennosides (Senna) 8.6 mg PRN BID PRN PO CONSTIPATION; Start 10/31/18 at 21:30 Simvastatin (Zocor) 20 mg DAILY PO Last administered on 11/13/18 08:30; Start 11/01/18 at 09:00 Sodium Chloride (Saline Mist Nasal) 1 lynsey PRN Q6HRS PRN NS NASAL CONGESTION; Start 10/31/18 at 21:30 Non-Formulary Medication (Warfarin Sodium (Coumadin)) 4 mg HS PO ; Start 10/31/18 at 21:00; Stop 11/01/18 at 14:25; Status DC Zonisamide (Zonegran) 100 mg DAILY PO Last administered on 11/13/18at 08:32; Start 11/01/18 at 09:00 Warfarin Sodium (Coumadin Per Physician) 1 each PRN DAILY PRN MC SEE COMMENTS; Start 11/01/18 at 07:15; Stop 11/02/18 at 15:25; Status DC Olanzapine (ZyPREXA ZYDIS) 2.5 mg PRN Q2HR PRN PO PSYCHOSIS; Start 11/01/18 at 12:00 Lorazepam (Ativan) 0.75 mg Taper DAILY PO Last administered on 11/05/18at 08:25; Start 11/02/18 at 09:00; Stop 11/05/18 at 21:45; Status DC Lorazepam (Ativan) 1 mg Taper DAILY@1400 PO Last administered on 11/05/18at 13:37; Start 11/02/18 at 14:00; Stop 11/05/18 at 21:45; Status DC Lorazepam (Ativan) 1 mg Taper QHS PO Last administered on 11/05/18at 20:49; Start 11/01/18 at 21:00; Stop 11/05/18 at 21:45; Status DC Warfarin Sodium (Coumadin) 4 mg DAILY@1600 PO Last administered on 11/01/18at 17:04; Start 11/01/18 at 16:00; Stop 11/02/18 at 15:25; Status DC Lorazepam (Ativan) 0.5 mg TID PO ; Start 11/22/18 at 09:00; Stop 11/22/18 at 09:00; Status DC Lorazepam (Ativan) 0.75 mg DAILY PO Last administered on 11/11/18at 08:08; Start 11/06/18 at 09:00; Stop 11/12/18 at 16:57; Status DC Lorazepam (Ativan) 1 mg AFTRNOON PO Last administered on 11/07/18at 12:42; Start 11/06/18 at 13:00; Stop 11/08/18 at 12:59; Status DC Lorazepam (Ativan) 0.75 mg PRN QEVNG PRN PO ANXIETY / AGITATION; Start 11/09/18 at 14:00 Lorazepam (Ativan) 1 mg PRN QHS PRN PO ANXIETY / AGITATION; Start 11/06/18 at 23:00 Albuterol/ Ipratropium (Duoneb) 3 ml RTQID NEB Last administered on 11/13/18at 20:45; Start 11/10/18 at 20:00 Lorazepam (Ativan) 0.5 mg DAILY PO Last administered on 11/13/18at 08:32; Start 11/13/18 at 09:00 Active Scripts Active Reported Prednisone 10 Mg Tablet 10 Mg PO QSA Take 3 tablets by mouth twice a day for 3 days, then take 2 tablets by mouth twice a day for 3 days, then take 1 tablet by mouth twice a day for 3 days, then take 1 tablet by mouth daily x 3 days, then stop. Zonegran (Zonisamide) 100 Mg Capsule 100 Mg PO DAILY Vitamin D3 (Cholecalciferol (Vitamin D3)) 5,000 Unit Tablet 5,000 Unit PO DAILY Simvastatin 20 Mg Tablet 20 Mg PO DAILY Seroquel (Quetiapine Fumarate) 50 Mg Tablet 50 Mg PO QHS Seroquel (Quetiapine Fumarate) 100 Mg Tablet 100 Mg PO QHS Senna (Sennosides) 8.6 Mg Tablet 8.6 Mg PO PRN Q12HR PRN Omeprazole 20 Mg Tablet.dr 20 Mg PO DAILY [place] (Sodium Chloride) 104 Ml [place] 2 Sprays NS PRN Q6HRS PRN NITROGLYCERIN SubLingual (Nitroglycerin) 0.4 Mg Tab.subl 0.4 Mg SL PRN Q5MIN PRN Melatonin 3 Mg Tablet 6 Mg PO QHS Ativan (Lorazepam) 1 Mg Tablet 1 Mg PO TID Keppra (Levetiracetam) 1,000 Mg Tablet 1,000 Mg PO BID Guaifenesin Dm Syrup (Guaifenesin/Dextromethorphan) 5 Ml Syrup 10 Ml PO PRN Q4HRS PRN Fleet Enema (Na Phos,M-B/Na Phos,Di-Ba) 133 Ml Enema 133 Ml RC PRN DAILY PRN Coumadin (Warfarin Sodium) 4 Mg Tablet 4 Mg PO HS Coreg (Carvedilol) 3.125 Mg Tablet 3.125 Mg PO BIDWMEALS Celexa (Citalopram Hydrobromide) 20 Mg Tablet 20 Mg PO DAILY Buspirone Hcl 5 Mg Tablet 5 Mg PO BID Lorazepam 2 Mg/1 Ml Vial 0.5 Ml IM DAILY Aspirin Ec (Aspirin) 81 Mg Tablet.dr 81 Mg PO DAILY Albuterol Sulfate Neb Soln (Albuterol Sulfate) 2.5 Mg/3 Ml Vial.neb 2.5 Mg NEB PRN Q6HRS PRN Aricept (Donepezil Hcl) 10 Mg Tablet 10 Mg PO DAILY I have reviewed the current psychotropics carefully including drug interactions. Risk benefit ratio favors no change other than as noted in my dictated progress note. 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
[2018-11-14] MEDS: IPRATRPIUM/ALBUTEROL 0.5/2.5MG 3 ML NEBU. NEB SCH ×4 (05:07→20:34)
[2018-11-14 05:52] VITALS: BP 104/68
[2018-11-14] MEDS: ASPIRIN ENTERIC COATED 81 MG TABLET.DR. PO SCH (09:03)
[2018-11-14] MEDS: PANTOPRAZOLE 40 MG TABLET. PO SCH (09:03)
[2018-11-14] MEDS: CARVEDILOL 3.125 MG TABLET PO SCH ×2 (09:04→16:34)
[2018-11-14] MEDS: busPIRone 5 MG TABLET. PO SCH ×2 (09:05→19:17)
[2018-11-14] MEDS: DONEPEZIL HCL 10 MG TABLET PO SCH (09:05)
[2018-11-14] MEDS: CITALOPRAM 20 MG TABLET. PO SCH (09:05)
[2018-11-14] MEDS: levETIRAcetam 500 MG TABLET PO SCH ×2 (09:05→19:17)
[2018-11-14] MEDS: SIMVASTATIN 20 MG TABLET PO SCH (09:06)
[2018-11-14] MEDS: CHOLECALCIFEROL (VITAMIN D3) 1,000 UNIT TABLET PO SCH (09:06)
[2018-11-14] MEDS: LORazepam 0.5 MG TABLET PO SCH (09:07)
[2018-11-14] MEDS: ZONISAMIDE 100 MG CAPSULE. PO SCH (09:08)
[2018-11-14 16:48] VITALS: BP 140/78
[2018-11-14] MEDS: QUEtiapine 50 MG TABLET. PO SCH (19:17)
[2018-11-14] MEDS: QUEtiapine 100 MG TABLET. PO SCH (19:17)
[2018-11-14] MEDS: MELATONIN 3 MG TABLET PO SCH (19:17)
[2018-11-14] MEDS ORDERED: ACET325T9 PO (21:25)
[2018-11-14] MEDS ORDERED: IPRA3AMP29 NEB (21:26)
[2018-11-14] MEDS ORDERED: LORA-254 PO (21:27)
[2018-11-14] MEDS ORDERED: LORA0.5T PO (21:28)
[2018-11-14] MEDS ORDERED: MAG30ORA2 PO (21:29)
[2018-11-14] MEDS ORDERED: MAGN2400 PO (21:29)
[2018-11-14] MEDS ORDERED: METH29OI TP (21:30)
[2018-11-14] MEDS ORDERED: OLAN5TAB5 PO (21:31)
[2018-11-14] MEDS ORDERED: PANT40TA3 PO (21:32)
--- NOTE | 2018-11-14 21:42 | PN ---
DATE: 11/13/2018 PSYCHIATRIC PROGRESS NOTE This late entry 11/13/2018 covers elements not covered in my initial note. SUBJECTIVE: I met with the patient in the evening of 11/13/2018. The patient slept 8-1/2 hours previous night. She has a history of cheeking medications and medications were found in her bed. On 11/13/2018, she took her medications whole, somewhat irritable at times, asking for her in the evening. She was asking nursing staff how old she was and felt she was in her teenage years. She was surprised to hear she was in her 80s and remarked that that was very old. REVIEW OF SYSTEMS: No CV, , pulmonary, eye, ENT system symptoms on review. Reliability poor. MENTAL STATUS EXAM: Oriented to herself. Insight, judgment, recent and remote memory, attention, concentration, fund of knowledge poor, consistent with her diagnosis mentioned in my initial note. PLAN: No change from initial note. EMILY PYLE MD DR: JASMYN/krissy JOB#: [id number] / [id number]
--- NOTE | 2018-11-14 22:43 | PDOC ---
Exam Note: Tiburcio Note: Please also refer to the separate dictated note~for this date of service dictated separately.~Patient seen individually. Discussed the patient with Nursing staff reviewed the chart.~Reviewed interim history and current functioning. Reviewed vital signs,~Labs/ Radiology~and current medications noted below. Continue current treatment with the changes noted in the dictated addendum note Assessment: Vital Signs: Vital Signs Date Time Temp Pulse Resp B/P (MAP) Pulse Ox O2 Delivery O2 Flow Rate FiO2 11/14/18 20:35 95 Room Air 11/14/18 16:48 98.9 100 18 140/78 (98) I&O Intake and Output 11/14/18 06:59 Intake Total 1080 ml Balance 1080 ml Intake Oral 1080 ml # Voids 1 Current Medications: Meds: Current Medications Acetaminophen (Tylenol) 650 mg PRN Q6HRS PRN PO PAIN / TEMP; Start 10/31/18 at 19:15 Multi-Ingredient Ointment (Analgesic [place]) 1 tano PRN QID PRN TP MUSCLE PAIN; Start 10/31/18 at 19:15 Al Hydroxide/Mg Hydroxide (Mylanta Plus Xs) 15 ml PRN AFTMEALHC PRN PO DYSPEPSIA; Start 10/31/18 at 19:15 Magnesium Hydroxide (Milk Of Magnesia) 2,400 mg PRN QHS PRN PO CONSTIPATION; Start 10/31/18 at 19:15 Citalopram Hydrobromide (CeleXA) 20 mg DAILY PO Last administered on 11/14/18at 09:05; Start 11/01/18 at 09:00 Lorazepam (Ativan) 1 mg TID PO Last administered on 11/01/18at 10:08; Start 10/31/18 at 21:00; Stop 11/01/18 at 14:25; Status DC Buspirone HCl (Buspar) 5 mg BID PO Last administered on 11/14/18at 19:17; Start 11/01/18 at 09:00 Donepezil HCl (Aricept) 10 mg DAILY PO Last administered on 11/14/18at 09:05; Start 11/01/18 at 09:00 Melatonin 6 mg QHS PO Last administered on 11/14/18at 19:17; Start 11/01/18 at 21:00 Quetiapine Fumarate (SEROquel) 50 mg QHS PO Last administered on 11/14/18 19:17; Start 10/31/18 at 21:00 Quetiapine Fumarate (SEROquel) 100 mg QHS PO Last administered on 11/14/18 19:17; Start 10/31/18 at 21:00 Albuterol Sulfate (Ventolin) 2.5 mg PRN Q6HRS PRN NEB SHORTNESS OF BREATH Last administered on 11/06/18 06:24; Start 10/31/18 at 20:45 Guaifenesin (Robitussin Dm) 10 ml PRN Q4HRS PRN PO COUGH; Start 10/31/18 at 21:15 Sodium Biphosphate/ Sodium Phosphate (Fleet Adult) 133 ml PRN DAILY PRN RC CONSTIPATION; Start 10/31/18 at 20:45 Nitroglycerin (Nitrostat) 0.4 mg PRN Q5MIN PRN SL CHEST PAIN; Start 10/31/18 at 20:45 Aspirin (Aspirin Enteric Coated) 81 mg DAILYWBKFT PO Last administered on 11/14/18 09:03; Start 11/01/18 at 08:00 Carvedilol (Coreg) 3.125 mg BIDWMEALS PO Last administered on 11/14/18 16:34; Start 11/01/18 at 08:00 Vitamin D (Vitamin D3) 5,000 unit DAILY PO Last administered on 11/14/18 09:06; Start 11/01/18 at 09:00 Levetiracetam (Keppra) 1,000 mg BID PO Last administered on 11/14/18 19:17; Start 11/01/18 at 09:00 Pantoprazole Sodium (Protonix) 40 mg DAILYAC PO Last administered on 11/14/18 09:03; Start 11/01/18 at 07:30 Sennosides (Senna) 8.6 mg PRN BID PRN PO CONSTIPATION; Start 10/31/18 at 21:30 Simvastatin (Zocor) 20 mg DAILY PO Last administered on 11/14/18 09:06; Start 11/01/18 at 09:00 Sodium Chloride (Saline Mist Nasal) 1 tano PRN Q6HRS PRN NS NASAL CONGESTION; Start 10/31/18 at 21:30 Non-Formulary Medication (Warfarin Sodium (Coumadin)) 4 mg HS PO ; Start 10/31/18 at 21:00; Stop 11/01/18 at 14:25; Status DC Zonisamide (Zonegran) 100 mg DAILY PO Last administered on 11/14/18at 09:08; Start 11/01/18 at 09:00 Warfarin Sodium (Coumadin Per Physician) 1 each PRN DAILY PRN MC SEE COMMENTS; Start 11/01/18 at 07:15; Stop 11/02/18 at 15:25; Status DC Olanzapine (ZyPREXA ZYDIS) 2.5 mg PRN Q2HR PRN PO PSYCHOSIS; Start 11/01/18 at 12:00 Lorazepam (Ativan) 0.75 mg Taper DAILY PO Last administered on 11/05/18at 08:25; Start 11/02/18 at 09:00; Stop 11/05/18 at 21:45; Status DC Lorazepam (Ativan) 1 mg Taper DAILY@1400 PO Last administered on 11/05/18at 13:37; Start 11/02/18 at 14:00; Stop 11/05/18 at 21:45; Status DC Lorazepam (Ativan) 1 mg Taper QHS PO Last administered on 11/05/18at 20:49; Start 11/01/18 at 21:00; Stop 11/05/18 at 21:45; Status DC Warfarin Sodium (Coumadin) 4 mg DAILY@1600 PO Last administered on 11/01/18at 17:04; Start 11/01/18 at 16:00; Stop 11/02/18 at 15:25; Status DC Lorazepam (Ativan) 0.5 mg TID PO ; Start 11/22/18 at 09:00; Stop 11/22/18 at 09:00; Status DC Lorazepam (Ativan) 0.75 mg DAILY PO Last administered on 11/11/18at 08:08; Start 11/06/18 at 09:00; Stop 11/12/18 at 16:57; Status DC Lorazepam (Ativan) 1 mg AFTRNOON PO Last administered on 11/07/18at 12:42; Start 11/06/18 at 13:00; Stop 11/08/18 at 12:59; Status DC Lorazepam (Ativan) 0.75 mg PRN QEVNG PRN PO ANXIETY / AGITATION; Start 11/09/18 at 14:00 Lorazepam (Ativan) 1 mg PRN QHS PRN PO ANXIETY / AGITATION; Start 11/06/18 at 23:00 Albuterol/ Ipratropium (Duoneb) 3 ml RTQID NEB Last administered on 11/14/18at 20:34; Start 11/10/18 at 20:00 Lorazepam (Ativan) 0.5 mg DAILY PO Last administered on 11/14/18at 09:07; Start 11/13/18 at 09:00 Active Scripts Active Reported Protonix (Pantoprazole Sodium) 40 Mg Tablet.dr 40 Mg PO DAILYAC Zyprexa Zydis (Olanzapine) 5 Mg Tab.rapdis 2.5 Mg PO PRN Q2HR PRN Analgesic [place] (Methyl Salicylate/Menthol) 28 Gm Oint...g. 1 Tano TP PRN QID PRN Milk Of Magnesia (Magnesium Hydroxide) 2,400 Mg/10 Ml Oral.susp 2,400 Mg PO PRN QHS PRN Mag-Al Plus Xs Suspension (Mag Hydrox/Al Hydrox/Simeth) 30 Ml Oral.susp 15 Ml PO PRN AFTMEALHC PRN Lorazepam 0.5 Mg Tablet 0.75 Mg PO PRN QEVNG PRN Ativan (Lorazepam) 1 Mg Tablet 1 Mg PO PRN QHS PRN Duoneb 0.5-3(2.5) Mg/3 Ml (Albuterol/Ipratropium) 3 Ml Ampul.neb 3 Ml NEB QID Tylenol (Acetaminophen) 325 Mg Tablet 650 Mg PO PRN Q6HRS PRN Prednisone 10 Mg Tablet 10 Mg PO QSA Take 3 tablets by mouth twice a day for 3 days, then take 2 tablets by mouth twice a day for 3 days, then take 1 tablet by mouth twice a day for 3 days, then take 1 tablet by mouth daily x 3 days, then stop. Zonegran (Zonisamide) 100 Mg Capsule 100 Mg PO DAILY Vitamin D3 (Cholecalciferol (Vitamin D3)) 5,000 Unit Tablet 5,000 Unit PO DAILY Simvastatin 20 Mg Tablet 20 Mg PO DAILY Seroquel (Quetiapine Fumarate) 50 Mg Tablet 50 Mg PO QHS Seroquel (Quetiapine Fumarate) 100 Mg Tablet 100 Mg PO QHS Senna (Sennosides) 8.6 Mg Tablet 8.6 Mg PO PRN Q12HR PRN Omeprazole 20 Mg Tablet.dr 20 Mg PO DAILY [place] (Sodium Chloride) 104 Ml [place] 2 Sprays NS PRN Q6HRS PRN NITROGLYCERIN SubLingual (Nitroglycerin) 0.4 Mg Tab.subl 0.4 Mg SL PRN Q5MIN PRN Melatonin 3 Mg Tablet 6 Mg PO QHS Ativan (Lorazepam) 1 Mg Tablet 1 Mg PO TID Keppra (Levetiracetam) 1,000 Mg Tablet 1,000 Mg PO BID Guaifenesin Dm Syrup (Guaifenesin/Dextromethorphan) 5 Ml Syrup 10 Ml PO PRN Q4HRS PRN Fleet Enema (Na Phos,M-B/Na Phos,Di-Ba) 133 Ml Enema 133 Ml RC PRN DAILY PRN Coumadin (Warfarin Sodium) 4 Mg Tablet 4 Mg PO HS Coreg (Carvedilol) 3.125 Mg Tablet 3.125 Mg PO BIDWMEALS Celexa (Citalopram Hydrobromide) 20 Mg Tablet 20 Mg PO DAILY Buspirone Hcl 5 Mg Tablet 5 Mg PO BID Lorazepam 2 Mg/1 Ml Vial 0.5 Ml IM DAILY Aspirin Ec (Aspirin) 81 Mg Tablet.dr 81 Mg PO DAILY Albuterol Sulfate Neb Soln (Albuterol Sulfate) 2.5 Mg/3 Ml Vial.neb 2.5 Mg NEB PRN Q6HRS PRN Aricept (Donepezil Hcl) 10 Mg Tablet 10 Mg PO DAILY I have reviewed the current psychotropics carefully including drug interactions. Risk benefit ratio favors no change other than as noted in my dictated progress note. Diagnosis: Problems: (1) Anxiety disorder (2) Dementia, vascular, with depression (3) Dementia, vascular, with delusions (4) Dementia in Alzheimer's disease with delusions (5) Dementia in Alzheimer's disease with depression (6) Impulse control disorder EMILY PYLE MD Nov 14, 2018 22:43
[2018-11-15] MEDS: IPRATRPIUM/ALBUTEROL 0.5/2.5MG 3 ML NEBU. NEB SCH ×2 (05:27→10:03)
[2018-11-15 06:02] VITALS: BP 117/89
[2018-11-15 07:39] VITALS: BP 117/89
[2018-11-15] MEDS: PANTOPRAZOLE 40 MG TABLET. PO SCH (07:39)
[2018-11-15] MEDS: CARVEDILOL 3.125 MG TABLET PO SCH (07:39)
[2018-11-15] MEDS: ASPIRIN ENTERIC COATED 81 MG TABLET.DR. PO SCH (07:39)
[2018-11-15] MEDS: CITALOPRAM 20 MG TABLET. PO SCH (07:40)
[2018-11-15] MEDS: CHOLECALCIFEROL (VITAMIN D3) 1,000 UNIT TABLET PO SCH (07:40)
[2018-11-15] MEDS: busPIRone 5 MG TABLET. PO SCH (07:40)
[2018-11-15] MEDS: DONEPEZIL HCL 10 MG TABLET PO SCH (07:40)
[2018-11-15] MEDS: levETIRAcetam 500 MG TABLET PO SCH (07:40)
[2018-11-15] MEDS: SIMVASTATIN 20 MG TABLET PO SCH (07:41)
[2018-11-15] MEDS: LORazepam 0.5 MG TABLET PO SCH (07:58)
[2018-11-15] MEDS: ZONISAMIDE 100 MG CAPSULE. PO SCH (07:58)
--- NOTE | 2018-11-15 17:33 | PDOC ---
Exam Note: Tiburcio Note: Please also refer to the separate dictated note~for this date of service dictated separately.~Patient seen individually. Discussed the patient with Nursing staff reviewed the chart.~Reviewed interim history and current functioning. Reviewed vital signs,~Labs/ Radiology~and current medications noted below. Continue current treatment with the changes noted in the dictated addendum note Assessment: Vital Signs: Vital Signs Date Time Temp Pulse Resp B/P (MAP) Pulse Ox O2 Delivery O2 Flow Rate FiO2 11/15/18 10:05 95 Room Air 11/15/18 07:39 82 117/89 11/15/18 06:02 97.5 16 I&O Intake and Output 11/15/18 07:00 Intake Total 360 ml Balance 360 ml Intake Oral 360 ml # Bowel Movements 1 Current Medications: Meds: Current Medications Acetaminophen (Tylenol) 650 mg PRN Q6HRS PRN PO PAIN / TEMP; Start 10/31/18 at 19:15; Stop 11/15/18 at 13:40; Status DC Multi-Ingredient Ointment (Analgesic [place]) 1 tano PRN QID PRN TP MUSCLE PAIN; Start 10/31/18 at 19:15; Stop 11/15/18 at 13:40; Status DC Al Hydroxide/Mg Hydroxide (Mylanta Plus Xs) 15 ml PRN AFTMEALHC PRN PO DYSPEPSIA; Start 10/31/18 at 19:15; Stop 11/15/18 at 13:40; Status DC Magnesium Hydroxide (Milk Of Magnesia) 2,400 mg PRN QHS PRN PO CONSTIPATION; Start 10/31/18 at 19:15; Stop 11/15/18 at 13:40; Status DC Citalopram Hydrobromide (CeleXA) 20 mg DAILY PO Last administered on 11/15/18at 07:40; Start 11/01/18 at 09:00; Stop 11/15/18 at 13:40; Status DC Lorazepam (Ativan) 1 mg TID PO Last administered on 11/01/18at 10:08; Start 10/31/18 at 21:00; Stop 11/01/18 at 14:25; Status DC Buspirone HCl (Buspar) 5 mg BID PO Last administered on 11/15/18at 07:40; Start 11/01/18 at 09:00; Stop 11/15/18 at 13:40; Status DC Donepezil HCl (Aricept) 10 mg DAILY PO Last administered on 11/15/18at 07:40; Start 11/01/18 at 09:00; Stop 11/15/18 at 13:40; Status DC Melatonin 6 mg QHS PO Last administered on 11/14/18 19:17; Start 11/01/18 at 21:00; Stop 11/15/18 at 13:40; Status DC Quetiapine Fumarate (SEROquel) 50 mg QHS PO Last administered on 11/14/18 19:17; Start 10/31/18 at 21:00; Stop 11/15/18 at 13:40; Status DC Quetiapine Fumarate (SEROquel) 100 mg QHS PO Last administered on 11/14/18 19:17; Start 10/31/18 at 21:00; Stop 11/15/18 at 13:40; Status DC Albuterol Sulfate (Ventolin) 2.5 mg PRN Q6HRS PRN NEB SHORTNESS OF BREATH Last administered on 11/06/18at 06:24; Start 10/31/18 at 20:45; Stop 11/15/18 at 13:40; Status DC Guaifenesin (Robitussin Dm) 10 ml PRN Q4HRS PRN PO COUGH; Start 10/31/18 at 21:15; Stop 11/15/18 at 13:40; Status DC Sodium Biphosphate/ Sodium Phosphate (Fleet Adult) 133 ml PRN DAILY PRN RC CONSTIPATION; Start 10/31/18 at 20:45; Stop 11/15/18 at 13:40; Status DC Nitroglycerin (Nitrostat) 0.4 mg PRN Q5MIN PRN SL CHEST PAIN; Start 10/31/18 at 20:45; Stop 11/15/18 at 13:40; Status DC Aspirin (Aspirin Enteric Coated) 81 mg DAILYWBKFT PO Last administered on 11/15/18at 07:39; Start 11/01/18 at 08:00; Stop 11/15/18 at 13:40; Status DC Carvedilol (Coreg) 3.125 mg BIDWMEALS PO Last administered on 11/15/18at 07:39; Start 11/01/18 at 08:00; Stop 11/15/18 at 13:40; Status DC Vitamin D (Vitamin D3) 5,000 unit DAILY PO Last administered on 11/15/18at 07:40; Start 11/01/18 at 09:00; Stop 11/15/18 at 13:40; Status DC Levetiracetam (Keppra) 1,000 mg BID PO Last administered on 11/15/18at 07:40; Start 11/01/18 at 09:00; Stop 11/15/18 at 13:40; Status DC Pantoprazole Sodium (Protonix) 40 mg DAILYAC PO Last administered on 11/15/18at 07:39; Start 11/01/18 at 07:30; Stop 11/15/18 at 13:40; Status DC Sennosides (Senna) 8.6 mg PRN BID PRN PO CONSTIPATION; Start 10/31/18 at 21:30; Stop 11/15/18 at 13:40; Status DC Simvastatin (Zocor) 20 mg DAILY PO Last administered on 11/15/18at 07:41; Start 11/01/18 at 09:00; Stop 11/15/18 at 13:40; Status DC Sodium Chloride (Saline Mist Nasal) 1 tano PRN Q6HRS PRN NS NASAL CONGESTION; Start 10/31/18 at 21:30; Stop 11/15/18 at 13:40; Status DC Non-Formulary Medication (Warfarin Sodium (Coumadin)) 4 mg HS PO ; Start 10/31/18 at 21:00; Stop 11/01/18 at 14:25; Status DC Zonisamide (Zonegran) 100 mg DAILY PO Last administered on 11/15/18at 07:58; Start 11/01/18 at 09:00; Stop 11/15/18 at 13:40; Status DC Warfarin Sodium (Coumadin Per Physician) 1 each PRN DAILY PRN MC SEE COMMENTS; Start 11/01/18 at 07:15; Stop 11/02/18 at 15:25; Status DC Olanzapine (ZyPREXA ZYDIS) 2.5 mg PRN Q2HR PRN PO PSYCHOSIS; Start 11/01/18 at 12:00; Stop 11/15/18 at 13:40; Status DC Lorazepam (Ativan) 0.75 mg Taper DAILY PO Last administered on 11/05/18 08:25; Start 11/02/18 at 09:00; Stop 11/05/18 at 21:45; Status DC Lorazepam (Ativan) 1 mg Taper DAILY@1400 PO Last administered on 11/05/18 13:3 7; Start 11/02/18 at 14:00; Stop 11/05/18 at 21:45; Status DC Lorazepam (Ativan) 1 mg Taper QHS PO Last administered on 11/05/18at 20:49; Start 11/01/18 at 21:00; Stop 11/05/18 at 21:45; Status DC Warfarin Sodium (Coumadin) 4 mg DAILY@1600 PO Last administered on 11/01/18 17:04; Start 11/01/18 at 16:00; Stop 11/02/18 at 15:25; Status DC Lorazepam (Ativan) 0.5 mg TID PO ; Start 11/22/18 at 09:00; Stop 11/22/18 at 09:00; Status DC Lorazepam (Ativan) 0.75 mg DAILY PO Last administered on 11/11/18at 08:08; Start 11/06/18 at 09:00; Stop 11/12/18 at 16:57; Status DC Lorazepam (Ativan) 1 mg AFTRNOON PO Last administered on 11/07/18at 12:42; Start 11/06/18 at 13:00; Stop 11/08/18 at 12:59; Status DC Lorazepam (Ativan) 0.75 mg PRN QEVNG PRN PO ANXIETY / AGITATION; Start 11/09/18 at 14:00; Stop 11/15/18 at 13:40; Status DC Lorazepam (Ativan) 1 mg PRN QHS PRN PO ANXIETY / AGITATION; Start 11/06/18 at 23:00; Stop 11/15/18 at 13:40; Status DC Albuterol/ Ipratropium (Duoneb) 3 ml RTQID NEB Last administered on 11/15/18at 10:03; Start 11/10/18 at 20:00; Stop 11/15/18 at 13:40; Status DC Lorazepam (Ativan) 0.5 mg DAILY PO Last administered on 11/15/18at 07:58; Start 11/13/18 at 09:00; Stop 11/15/18 at 13:40; Status DC Active Scripts Active Reported Protonix (Pantoprazole Sodium) 40 Mg Tablet.dr 40 Mg PO DAILYAC Zyprexa Zydis (Olanzapine) 5 Mg Tab.rapdis 2.5 Mg PO PRN Q2HR PRN Maximum 10 mg in 24 hrs Analgesic [place] (Methyl Salicylate/Menthol) 28 Gm Oint...g. 1 [place] TP PRN QID PRN Milk Of Magnesia (Magnesium Hydroxide) 2,400 Mg/10 Ml Oral.susp 2,400 Mg PO PRN QHS PRN Mag-Al Plus Xs Suspension (Mag Hydrox/Al Hydrox/Simeth) 30 Ml Oral.susp 15 Ml PO PRN AFTMEALHC PRN Lorazepam 0.5 Mg Tablet 0.75 Mg PO PRN QEVNG PRN Ativan (Lorazepam) 1 Mg Tablet 1 Mg PO PRN QHS PRN Duoneb 0.5-3(2.5) Mg/3 Ml (Albuterol/Ipratropium) 3 Ml Ampul.neb 3 Ml NEB QID Tylenol (Acetaminophen) 325 Mg Tablet 650 Mg PO PRN Q6HRS PRN Zonegran (Zonisamide) 100 Mg Capsule 100 Mg PO DAILY Vitamin D3 (Cholecalciferol (Vitamin D3)) 5,000 Unit Tablet 5,000 Unit PO DAILY Simvastatin 20 Mg Tablet 20 Mg PO DAILY Seroquel (Quetiapine Fumarate) 50 Mg Tablet 50 Mg PO QHS Seroquel (Quetiapine Fumarate) 100 Mg Tablet 100 Mg PO QHS Senna (Sennosides) 8.6 Mg Tablet 8.6 Mg PO PRN Q12HR PRN [place] (Sodium Chloride) 104 Ml [place] 2 Sprays NS PRN Q6HRS PRN NITROGLYCERIN SubLingual (Nitroglycerin) 0.4 Mg Tab.subl 0.4 Mg SL PRN Q5MIN PRN Melatonin 3 Mg Tablet 6 Mg PO QHS Ativan (Lorazepam) 1 Mg Tablet 0.5 Mg PO DAILY Keppra (Levetiracetam) 1,000 Mg Tablet 1,000 Mg PO BID Guaifenesin Dm Syrup (Guaifenesin/Dextromethorphan) 5 Ml Syrup 10 Ml PO PRN Q4HRS PRN Fleet Enema (Na Phos,M-B/Na Phos,Di-Ba) 133 Ml Enema 133 Ml RC PRN DAILY PRN Coreg (Carvedilol) 3.125 Mg Tablet 3.125 Mg PO BIDWMEALS Celexa (Citalopram Hydrobromide) 20 Mg Tablet 20 Mg PO DAILY Buspirone Hcl 5 Mg Tablet 5 Mg PO BID Lorazepam 2 Mg/1 Ml Vial 0.5 Ml IM DAILY Aspirin Ec (Aspirin) 81 Mg Tablet.dr 81 Mg PO DAILY Albuterol Sulfate Neb Soln (Albuterol Sulfate) 2.5 Mg/3 Ml Vial.neb 2.5 Mg NEB PRN Q6HRS PRN Aricept (Donepezil Hcl) 10 Mg Tablet 10 Mg PO DAILY I have reviewed the current psychotropics carefully including drug interactions. Risk benefit ratio favors no change other than as noted in my dictated progress note. 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
--- NOTE | 2018-11-17 01:23 | PN ---
DATE: 11/14/2018 This late entry 11/14/2018 covers elements not covered in my initial note. SUBJECTIVE: I met with the patient in the evening. The patient slept 7-1/2 hours previous night. She has had no overt delusions and has had a better day per nursing report. The patient remains confused. REVIEW OF SYSTEMS: No CV, , pulmonary, eye, ENT system symptoms on review. Reliability poor. MENTAL STATUS EXAM: Oriented to herself. Insight, judgment, recent and remote memory, attention, concentration, fund of knowledge poor, consistent with her diagnosis mentioned in my initial note. PLAN: No change from initial note. Tentative discharge on 11/15/2018. EMILY PYLE MD DR: [email or web address]/krissy JOB#: [id number] / [id number]
--- NOTE | 2018-11-17 01:29 | DS ---
DATE OF DISCHARGE: 11/15/2018 PSYCHIATRIC PROGRESS NOTE AND DISCHARGE SUMMARY This is a late entry for 11/15/2018 covers elements not covered in my initial note. I met with the patient individually. REASON FOR ADMISSION: Please refer to the admission history for details. Briefly, the patient is an 88-year-old female, referred to us from [facility] by her primary care physician on account of worsening confusion, marked delusions about her cheating on her. She was agitated with the and daughter, was trying to pack and move out, refusing medications. The patient had failed outpatient psychiatric interventions. Behaviors were unmanageable at the facility resulting in this referral. SIGNIFICANT FINDINGS AND CLINICAL COURSE: Following admission, the patient was seen daily individually by myself from a psychiatric standpoint, medical followup per Dr. Chandler. The patient remained confused, anxious, restless, delusional. Adjustments were made in her psychotropics and she seemed to respond to a combination of Aricept 10 mg a day, BuSpar 5 mg b.i.d., Celexa 20 mg a day, Ativan 0.5 mg daily, may need to be tapered and ultimately discontinued as an outpatient. She is also on Keppra 1000 mg b.i.d., melatonin 6 mg at bedtime, Seroquel 150 mg at bedtime, Zyprexa p.r.n., Ativan 1 mg at bedtime p.r.n. REVIEW OF SYSTEMS: Prior to discharge on 11/15/2018, no CV, , pulmonary, eye, ENT system symptoms on review. Reliability poor. Ambulation impaired, in wheelchair. MENTAL STATUS EXAM: Oriented to herself. Insight, judgment, recent and remote memory, attention, concentration, fund of knowledge poor, consistent with her diagnosis. CONDITION AT DISCHARGE: Improved. FINAL DIAGNOSES: Major neurocognitive disorder, Alzheimer, vascular with delusion, depression, behavioral disturbance; anxiety disorder, unspecified; impulse control disorder, unspecified. Rest unchanged from admission. DISCHARGE MEDICATIONS: Please refer to the [facility]. DISCHARGE INSTRUCTIONS: [facility] psychiatric and [facility] at the [facility]. Time for discharge day management greater than 30 minutes. EMILY PYLE MD DR: [email or web address]/krisys JOB#: [id number] / [id number]
[2018-11-22] MEDS ORDERED: LORazepam 0.5 MG TABLET PO SCH (09:00)
== END 2018-11-15 13:40 | DRG 57 ==
LOC: ER 16:40 → GEROPSY 18:25
PROVIDERS: ADMIT Psychiatry & Neurology Psychiatry; ATTEND Psychiatry & Neurology Psychiatry
DX: G30.9 Alzheimer's disease, unspecified (principal); F02.81 Dementia in other diseases classified elsewhere, unspecified severity, with behavioral disturbance; F01.51 Vascular dementia, unspecified severity, with behavioral disturbance; I69.359 Hemiplegia and hemiparesis following cerebral infarction affecting unspecified side; F32.9 Major depressive disorder, single episode, unspecified; F41.9 Anxiety disorder, unspecified; F63.9 Impulse disorder, unspecified; I11.0 Hypertensive heart disease with heart failure; I48.91 Unspecified atrial fibrillation; I50.9 Heart failure, unspecified; J44.9 Chronic obstructive pulmonary disease, unspecified; Z66 Do not resuscitate; S00.33XA Contusion of nose, initial encounter; W18.39XA Other fall on same level, initial encounter; Y93.89 Activity, other specified; Y92.89 Other specified places as the place of occurrence of the external cause; Y99.8 Other external cause status; Z79.899 Other long term (current) drug therapy; Z88.1 Allergy status to other antibiotic agents; Z88.8 Allergy status to other drugs, medicaments and biological substances
CPT/HCPCS: 36415; 70450; 70486; 71045; 71250; 73030; 80053; 80061; 81001; 82306; 83036; 83540; 83550; 83735; 84436; 84443; 84480; 85025; 85610; 86592; 93005; 94640; J7613; J7620; 97110; 97116; 97530; 99285-25